=== PATIENT | female | born 1945 | race Caucasian/White ===

== ENCOUNTER 2018-10-07 02:00 | Emergency (ER) | payer MEDICARE, BC ==
[2018-10-07] MEDS ORDERED: Bupivacaine 0.5% W/EPI SDV* 10 ML VIAL INJ ONE (02:06)
[2018-10-07] MEDS ORDERED: Lidocaine 2% EPI 1:200000 MPF* 10 ML VIAL INJ ONE (02:06)
--- NOTE | 2018-10-07 02:07 | ED ---
Laceration/Wound HPI - HPI Summary HPI Summary: This patient is a 73 year old F brought in by ambulance to [facility] with a chief complaint of laceration to lower left leg that occurred [employer]. Symptoms aggravated by movement. Symptoms alleviated by nothing. Patient reports LLE pain. - History of Current Complaint Stated Complaint: "L LEG LAC" PER PT Time Seen by Provider: 10/07/18 02:02 Hx Obtained From: Patient, EMS Mechanism of Injury: Other - Unknown Onset/Duration: Sudden Onset, Lasting Hours, Still Present Aggravating: Movement Alleviating: Nothing Timing: Constant Associated Signs & Symptoms: Pain - Allergy/Home Medications Allergies/Adverse Reactions: Allergies Allergy/AdvReac Type Severity Reaction Status Date / Time tetracycline Allergy Rash Verified 10/07/18 03:22 PMH/Surg Hx/FS Hx/Imm Hx Previously Healthy: No Endocrine/Hematology History: Denies: Hx Diabetes Cardiovascular History: Denies: Hx Hypertension, Hx Pacemaker/ICD History: Denies: Hx Dialysis, Hx Renal Disease Musculoskeletal History: Denies: Hx Rheumatoid Arthritis, Hx Osteoporosis Sensory History: Denies: Hx Hearing Aid Psychiatric History: Denies: Hx Panic Disorder - Cancer History Cancer Type, 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 CYST ON COCYX TAKEN OFF 1961. CATARACTS BILATERAL EYES - Family History Known Family History: Positive: Unknown - Pt has dimentia - Social History Occupation: Retired Lives: With Family Alcohol Use: Daily Alcohol Amount: a glass of wine with dinner Hx Substance Use: No Substance Use Type: Reports: None Hx Tobacco Use: No Smoking Status (MU): Never Smoked Tobacco Review of Systems Positive: Other - Positive LLE pain Positive: Other - Positive left lower leg laceration All Other Systems Reviewed And Are Negative: Yes Physical Exam - Summary Physical Exam Summary: Appearance: Well-appearing, Well-nourished, lying in bed comfortable Skin: Warm, dry, no obvious rash, 3 cm laceration to the left lateral lower leg Eyes: sclera anicteric, no conjunctival pallor ENT: mucous membranes moist Neck: deferred Respiratory: No signs of respiratory distress Cardiovascular: Appears well perfused, pulses are nml Abdomen: deferred Musculoskeletal: Moving all 4 extremities without obvious discomfort Neurological: Awake and alert, mentation is normal, speech is fluent and appropriate Psychiatric: affect is normal, does not appear anxious or depressed Triage Information Reviewed: Yes Vital Signs Reviewed: Yes Procedures - Laceration/Wound Repair 1 Location: lower extremity Description: Linear Anesthesia: 2.0%, Lido, Epi Length, Depth and Shape: 3 cm Laceration/Wound Explored: clean Closure: Single Layer Suture Type: Nylon - 4.0 Number of Sutures: 4 Layer Closure?: Yes Sterile Dressing Applied?: Yes Laceration Repair Course/Dx - Course Course Of Treatment: This patient is a 73 year old F brought in by ambulance to [facility] with a chief complaint of laceration to lower left leg that occurred [employer]. Physical Exam Findings: 3 cm laceration to the left lateral lower leg. In the ED course the patient was given Bupivacaine and lidocaine 2% with EPI. Patient will be discharged with follow up from PCP. The patient is agreeable with this plan. - Clinical Impression Provider Diagnoses: Laceration of left leg Discharge - Sign-Out/Discharge Documenting (check all that apply): Patient Departure - Discharge home Patient Received Moderate/Deep Sedation with Procedure: No - Discharge Plan Condition: Improved Disposition: HOME Patient Education Materials: Care For Your Stitches (ED), Laceration (ED) Referrals: Yady Munoz MD [Primary Care Provider] - Additional Instructions: Stitches need to be removed in 10 days. - Billing Disposition and Condition Condition: IMPROVED Disposition: Home - Attestation Statements Document Initiated by Scribe: Yes Documenting Scribe: Leonila Thapa Provider For Whom Zoey is Documenting (Include Credential): Dr. Shahid Ling MD Scribe Attestation: ILeonila, scribed for Dr. Shahid Ling MD on 10/07/18 at 0355. Scribe Documentation Reviewed: Yes Provider Attestation: The documentation as recorded by the Leonila rivas accurately reflects the service I personally performed and the decisions made by me, Dr. Shahid Ling MD Status of Scribe Document: Viewed
[2018-10-07] MEDS ORDERED: Lidocaine 2% EPI 1:200000 MPF*10-20 ML VIAL ONE (02:08)
[2018-10-07] MEDS ORDERED: Bupivacaine 0.5% W/EPI SDV* 30 ML VIAL ONE (02:08)
[2018-10-07 02:34] VITALS: BP 0/0
== END 2018-10-07 04:39 | disposition home or self-care (01) ==
LOC: ED 02:00
DX: S81.812A Laceration without foreign body, left lower leg, initial encounter (principal); X58.XXXA Exposure to other specified factors, initial encounter; Y92.9 Unspecified place or not applicable; Z85.820 Personal history of malignant melanoma of skin
CPT/HCPCS: 12002; 96374; 99282

== ENCOUNTER 2018-10-14 18:42 | Emergency (ER) | payer MEDICARE, BC ==
--- OUTSIDE RECORDS SUMMARY | 2018-10-14 19:15 | XMS REPORT | Continuity of Care Document ---
:1945 External Reference #:[id number] Author Name Jocelynn Mccormick M.D. Address [address] [place] [address] Care Team Providers Name Role Phone Juan Neil M.D., R.D. Care Team Information Forensic Technician Unavailable Payers Date Identification Numbers Payment Provider Subscriber Effective: 2016 Policy Number: [id number] [facility] Marg[facility]ite [facility] PayID: [id number] [address] [place] [address] Effective: 2004 Policy Number: [facility](Josefina Gomez [id number] Group Name: Noé [address] PayID: [id number] [place] [address] Advance Directives Type Date Description Status Comment Other Directive 10/07/2014 Health Care Proxy Current and Verified Other Directive 10/07/2014 Living Will Current and Verified Problems Active Problems Provider Date Mixed hyperlipidemia Lab and Office Services Onset: 05/23/2011 Osteoarthritis Juan Neil M.D., R.D. Onset: 05/23/2011 Gastroesophageal reflux disease Juan Neil M.D., R.D. Onset: 05/23/2011 Family History Date Family Member(s) Observation Comments : (age Father due to 81 Years) Fractured Hip Surgery Father Hypertension Mother due to () Alzheimer's Disease Mother Migraines : (age Mother due to 80 Years) Osteoporosis, Fractured Hip Children 2 First Brother Age 4 ? METABOLIC/ NEUROLOGIC DISORDER- ILLNESS LIKE KELLY-SACHS BUT TOLD NOT GENETIC Maternal Grandmother Migraines Maternal Grandmother Osteoporosis HIP FX Paternal Aunts Cancer, Breast POSTMENOPAUSAL Maternal Aunts Osteoporosis Maternal Aunts Lupus Erythematosis Maternal Aunts Cancer, Breast POSTMENOPAUSAL Social History Type Date Description Comments Sex Unknown Marital Status Lives With Spouse Diet Healthy, Well Balanced Diet . Stopped eating meat However, hard to this summer. Object to find good meals. Eat killing animals. fish and eggs. Wonders re Fe and B12. Were eating free-range meat before that. Not much sweets. No DM hx in family. Eating more cheese. Green tea. As of 04/2014, eating chicken and fish. Yogurt. Similar diet 2017. 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 Tobacco Use Start: Unknown Never Smoked Cigarettes Tobacco Use Start: Unknown Reviewed 08/15/05 and 03/19. ETOH Use Currently consumes alcohol ETOH Use Currently consumes 1 glasses of wine daily Tobacco Use Start: Unknown Patient has never smoked Smoking Status Reviewed: 05/13/18 Patient has never smoked Exercise Walks 5 times a week Type/Frequency Exercise --3-4 miles a day even Still walks in 2016 Type/Frequency in winter. Allergies, Adverse Reactions, Alerts Active Allergies Reaction Severity Comments Date Tetracyclin Hives After Treated For Pneumonia 08/15/2005 Medications Active Medications SIG Qnty Indications Ordering Date Provider Melatonin 1 by mouth every 90tabs Juan Neil, 07/01/2018 3mg Tablets night at bedtime as Giuseppe Montiel needed sleep Risperdal 1 by mouth twice a 30tabs Juan Neil, 06/17/2018 0.5mg day Tiana RTanvi Tablets Alprazolam Discontinue 1tabs Juan Neil, 06/08/2018 0.5mg Medication Tiana R.DIban Tablets Benadryl Allergy Discontinue 1caps Juan Neil, 05/30/2018 25mg Medication Tiana RTanvi Capsules Calcium + D3 take one tablet by 90tabs Juan Neil, 05/30/2018 mouth qd Tiana RTanvi [id number] Tablets Aspir-81 take one tablet by 90tabs Juan Neil, 03/27/2012 81mg Tablets mouth daily Giuseppe Montiel DR Mvi 1 po qd 90caps Juan Neil, 05/24/2011 Capsules Giuseppe Montiel Combigan bid With DR. Gerardo Brunson 02/03/2008 0.2/0.5% for left eye Blegen, Tiana Solution History Medications Alprazolam take one by mouth 30tabs Juan Neil, 11/09/2017 - 0.25mg once daily as Tiana R.DIban 06/08/2018 Tablets needed for anxiety Melatonin Juan Neil, 05/26/2015 - Capsules Tiana R.DIban 05/21/2017 Calcium + D3 take one tablet Juan Neil, 04/23/2014 - Tablets by mouth bid Tiana R.DIban 05/30/2018 Nystatin apply to affected 30gm Juan Neil, 07/16/2013 - [id number] area bid - tid Tiana, R.DIban 04/23/2014 Cream prn Satnam Mag Zinc 1 po qd Juan Neil, 04/21/2013 - Tablets Tiana R.DIban 04/23/2014 Benadryl take one tablet Juan Neil, 04/21/2013 - 25mg Capsules by mouth at Tiana R.DIban 05/30/2018 bedtime as needed for allergies Amoxicillin 1 po bid for 20tabs 461.8 Shawnti RIban 04/08/2013 - 875mg sinus infection Storm, [employer] 04/18/2013 Tablets Prednisone take 3 tablets 30tabs 389.9 Juan Neil, 11/20/2012 - 20mg Tablets daily Tiana R.DIban 04/08/2013 Valtrex 1 po tid for 10 30tabs 389.9 Juan Neil, 11/20/2012 - 1gm Tablets days Tiana, R.D. 04/21/2013 Cephalexin 1 tablet po bid x 20tabs 782.9 Rex Elliott M.D. 10/09/2012 - 250mg 10 days 12/28/2012 Tablets Xanax 1-2 po tid prn. 12tabs Juan Neil, 10/08/2012 - 0.5mg Tablets Take 1/2 hour M.DIban, R.D. 04/21/2013 before flying. Calcium 600 + D 1 po qd Juan Neil, 05/12/2012 - M.DIban, R.D. 04/21/2013 [id number] Tablets Vitamin B-12 1 po qd Juan Neil, 05/12/2012 - 500mcg M.DIban, R.D. 04/21/2013 Tablets Sub Vitamin D-3 1pill qd Juan Neil, 05/12/2012 - 400Unit M.DIban, R.D. 04/21/2013 Tablets Metamucil Juan Neil, 03/27/2012 - Powder M.DIban, R.D. 04/23/2014 Vitamin B-12 1 po qd Juan Neil, 03/27/2012 - 1000mcg M.DIban, R.D. 05/12/2012 Tablets Sub Fluticasone instill 2 sprays 1units 995.3 Juan Neil, 01/11/2012 - Propionate into each nostril Parvin.Jennifer, R.D. 03/27/2012 50mcg/Act once daily Suspension Potassium Gluconate 595 mg qd Juan Neil, 05/24/2011 - M.DIban, R.D. 04/23/2013 Tablets Vitamin D 1 po qd Juan Neil, 05/24/2011 - 1000Unit M.DIban, R.D. 04/21/2013 Capsules Simvastatin Take One Tablet 90tabs 272.2 Juan Neil, 10/06/2009 - 10mg By Mouth AT M.D., R.D. 04/23/2014 Tablets Bedtime [place] Nail Lacquer use as directed 1units Jocelynn Brunson 02/03/2008 - 8% qd to affected Tiana Mccormick 05/24/2011 Solution toenails- remove with alcohol wipe qweek Omeprazole One Pill By Mouth 30caps Regla Nichole 02/05/2007 - 20mg Daily Before Storm, [employer] 09/10/2007 Capsules First Meal Of The Day Cod Liver Oil Jocelynn Brunson 01/31/2007 - Capsules BleTiana mayorga 05/24/2011 Keflex one po bid for 10 20tabs Lizette A. 08/25/2006 - 500mg Tablets days Marcelino, 03/31/2009 [facility] Augmentin One PO bid For 20tabs 461.9 Rex Elliott M.D. 10/11/2005 - 875mg;125 mg 10 Days 10/31/2005 Tablets Amoxicillin 2 PO bid X 10 40caps Jocelynn Brunson 08/24/2005 - 500mg Days Anny MIbanDIban 10/31/2005 Capsules Fish Oil Jocelynn Brunson 08/15/2005 - Caps Candciegen MIbanDIban 01/31/2007 Aspirin 1 po qd Jocelynn Brunson 08/15/2005 - 325mg Tablets Tiana Mccormick 03/31/2009 Glucosamine And 1350 mg bid Juan Neil, 08/15/2005 - Chondroitin M.Jennifer, R.D. 04/21/2013 Tablets Gingko Biloba Jocelynn Brunson 08/15/2005 - Caplets Tiana Mccormick 05/24/2011 Potassium Chloride Jocelynn Brunson 08/15/2005 - Blegen, M.DIban 05/24/2011 Capsules Premarin Vaginal use up to twice 42.5G Jocelynn Brunson 08/15/2005 - weekly as Tiana Mccormick 03/31/2009 0.625mg/GM Cream directed Calcium Citrate 1-2 tabs a day Juan Neil, 08/09/2004 - 500 M.D., R.D. 05/12/2012 Triamcinolone 0.1% Apply bid to 30units Carmen Israel, 08/05/2003 - Cream affected area M.DIban 05/24/2011 0.1% Augmentin one bid x3 days 6tabs Joseph Morfin, 05/22/2003 - 500mg Tablets M.D. 08/09/2004 Physical Therapy PT For Tendonitis 6units Carmen Israel, 08/06/2002 - R Shoulder M.D. 05/24/2011 Fosamax one q week on 4tabs Carmen Israel, 08/06/2002 - 70mg Tablets empty stomach, do M.D. 10/11/2005 not lie down after taking Tylenol With Codeine one to two tabs 60tabs oJcelynn Michael/16/2002 - #3 q4-6h prn pain Tiana Mccormick 05/24/2011 Tablets Medications Administered in Office Medication SIG Qnty Indications Ordering Provider Date TB,Intradermal (PPD, [place]) Lab and Office Services 05/27/2018 Injection Immunizations CPT Code Status Date Vaccine Lot # [id number] Given 05/13/2018 Influenza Vaccine High Dose PF [id number] 85343 Given 02/08/2016 Influenza Vaccine High Dose PF [id number] 78580 Given 03/10/2015 Influenza Vaccine High Dose PF [id number] 85786 Given 07/09/2014 Prevnar-13 Pneumococcal Conjugate Vaccine [id number] 79939 Given 03/19/2014 Influenza Vaccine High Dose PF [id number] 84181 Given 03/20/2013 Influenza Vaccine High Dose PF [id number] 27183 Given 03/20/2012 Influenza Vaccine High Dose PF [id number] 24692 Given 04/12/2011 Influenza Vaccine-Preservative Free 3 Yrs And [id number] Above 89105 Given 04/06/2010 Influenza Vaccine-Preservative Free 3 Yrs And [id number] Above 45321 Given 05/25/2009 H1N1 Influenza Vaccine [id number] 61866 Given 05/25/2009 H1N1 Immunization Administration, Including Counseling 37547 Given 03/31/2009 Pneumovax 23 (PPSV23) 65+ years or high risk 2 to 1315y 64 year old 93236 Given 03/31/2009 Influenza Vaccine-Preservative Free 3 Yrs And [id number] Above 31147 Given 05/26/2008 Zoster Vaccine [id number] 54455 Given 03/11/2008 Influenza Virus Vaccine, 3 Yrs And Above [id number] 10595 Given 03/29/2007 Influenza Virus Vaccine, 3 Yrs And Above [id number] 97717 Given 08/15/2005 Tdap (Adacel) [id number] 92899 Given 03/28/2005 Influenza Virus Vaccine, 3 Yrs And Above 68327 Given 04/01/2003 Influenza Virus Vaccine, 3 Yrs And Above 74043 Given 04/01/2003 Influenza Virus Vaccine, 3 Yrs And Above 36611 Given 2002 Influenza Virus Vaccine, 3 Yrs And Above 12892 Given 04/15/2001 Influenza Virus Vaccine, 3 Yrs And Above 34377 Given 04/01/1999 Influenza Virus Vaccine, 3 Yrs And Above 12196 Given 04/08/1998 Influenza Virus Vaccine 68105 Given 03/11/1997 Influenza Virus Vaccine 60016 Given 08/06/1996 Tetanus 12588 Given 03/21/1996 Influenza Virus Vaccine 07361 Given 03/19/1995 Influenza Virus Vaccine 22587 Given 03/09/1994 Influenza Virus Vaccine 93283 Given 03/23/1993 Influenza Virus Vaccine Vital Signs Date Vital Result Comment 05/13/2018 9:23am Weight 98.00 lb Weight 44.453 kg BP Systolic 140 mmHg BP Diastolic 74 mmHg Heart Rate 78 /min Body Temperature 97.6 F Respiratory Rate 16 /min Height 61.5 inches 5'1.50" BMI (Body Mass Index) 18.2 kg/m2 O2 % BldC Oximetry 98 % 11/09/2017 12:34pm Weight 98.00 lb Weight 44.453 kg BP Systolic 147 mmHg BP Diastolic 75 mmHg Heart Rate 88 /min Body Temperature 99.0 F O2 % BldC Oximetry 97 % 05/21/2017 11:24am Weight 104.00 lb Weight 47.174 kg BP Systolic Lying Down 150 mmHg BP Diastolic Lying Down 70 mmHg BP Systolic Standing 150 mmHg BP Diastolic Standing 70 mmHg Heart Rate 68 /min Body Temperature 97.5 F Respiratory Rate 14 /min Height 62 inches 5'2" BMI (Body Mass Index) 19.0 kg/m2 O2 % BldC Oximetry 97 % 04/27/2017 12:20pm Weight 105.00 lb Weight 47.628 kg BP Systolic 140 mmHg BP Diastolic 70 mmHg Heart Rate 80 /min Body Temperature 97.8 F Respiratory Rate 14 /min 01/08/2017 2:34pm Weight 105.00 lb Weight 47.628 kg BP Systolic 138 mmHg BP Diastolic 68 mmHg Heart Rate 72 /min Body Temperature 98.2 F Respiratory Rate 17 /min O2 % BldC Oximetry 98 % 08/30/2016 11:22am Weight 111.00 lb Weight 50.350 kg BP Systolic 140 mmHg BP Diastolic 70 mmHg Heart Rate 72 /min 05/19/2016 10:45am Weight 108.00 lb Weight 48.989 kg BP Systolic 122 mmHg BP Diastolic 68 mmHg Heart Rate 67 /min Body Temperature 94.0 F Respiratory Rate 16 /min O2 % BldC Oximetry 99 % 02/08/2016 11:51am Weight 110.00 lb Weight 49.896 kg BP Systolic 128 mmHg BP Diastolic 64 mmHg Heart Rate 60 /min Body Temperature 97.3 F Respiratory Rate 16 /min 12/08/2015 11:39am Weight 110.00 lb Weight 49.896 kg BP Systolic 128 mmHg BP Diastolic 68 mmHg Heart Rate 62 /min Body Temperature 97.5 F 12/01/2015 10:05am Weight 109.00 lb Weight 49.442 kg BP Systolic 152 mmHg BP Diastolic 78 mmHg Heart Rate 90 /min Body Temperature 98.5 F O2 % BldC Oximetry 99 % 05/26/2015 2:19pm Weight 112.00 lb Weight 50.803 kg BP Systolic 120 mmHg BP Diastolic 80 mmHg Heart Rate 80 /min Height 62 inches 5'2" BMI (Body Mass Index) 20.5 kg/m2 08/24/2014 1:33pm Weight 109.00 lb Weight 49.442 kg BP Systolic 100 mmHg BP Diastolic 60 mmHg Heart Rate 69 /min Body Temperature 97.1 F O2 % BldC Oximetry 96 % 04/23/2014 11:05am Weight 110.00 lb Weight 49.896 kg BP Systolic 128 mmHg BP Diastolic 66 mmHg Heart Rate 76 /min Height 61.5 inches 5'1.50" BMI (Body Mass Index) 20.4 kg/m2 04/21/2013 9:41am Weight 109.00 lb Weight 49.442 kg BP Systolic 120 mmHg BP Diastolic 70 mmHg Heart Rate 88 /min Height 62.5 inches 5'2.50" BMI (Body Mass Index) 19.6 kg/m2 04/08/2013 9:46am Weight 107.00 lb Weight 48.535 kg BP Systolic 118 mmHg BP Diastolic 64 mmHg Heart Rate 82 /min Body Temperature 96.3 F Height 62.5 inches 5'2.50" BMI (Body Mass Index) 19.3 kg/m2 O2 % BldC Oximetry 99 % 11/20/2012 10:27am Weight 111.00 lb Weight 50.350 kg BP Systolic 104 mmHg BP Diastolic 64 mmHg Heart Rate 76 /min Body Temperature 97.3 F 10/29/2012 10:51am Weight 114.00 lb Weight 51.710 kg BP Systolic 112 mmHg BP Diastolic 70 mmHg Heart Rate 76 /min Body Temperature 97.9 F O2 % BldC Oximetry 99 % 10/21/2012 8:44am Weight 115.00 lb Weight 52.164 kg BP Systolic 124 mmHg BP Diastolic 64 mmHg Heart Rate 76 /min Body Temperature 96.2 F 10/14/2012 11:58am Weight 116.00 lb Weight 52.618 kg BP Systolic 120 mmHg BP Diastolic 62 mmHg Heart Rate 68 /min 10/09/2012 2:31pm Weight 113.00 lb Weight 51.257 kg BP Systolic 104 mmHg BP Diastolic 72 mmHg Heart Rate 84 /min Body Temperature 97.4 F 04/25/2012 11:00am Weight 114.00 lb Weight 51.710 kg BP Systolic 116 mmHg BP Diastolic 68 mmHg Heart Rate 86 /min 03/27/2012 8:33am Weight 113.00 lb Weight 51.257 kg BP Systolic 122 mmHg BP Diastolic 64 mmHg Heart Rate 68 /min Height 62 inches 5'2" BMI (Body Mass Index) 20.7 kg/m2 01/11/2012 10:32am Weight 112.00 lb Weight 50.803 kg BP Systolic 114 mmHg BP Diastolic 66 mmHg Heart Rate 66 /min Body Temperature 97.7 F 05/24/2011 8:45am Weight 116.00 lb Weight 52.618 kg BP Systolic 110 mmHg BP Diastolic 68 mmHg Heart Rate 79 /min Height 62 inches 5'2" BMI (Body Mass Index) 21.2 kg/m2 Last Menstrual Period 0 O2 % BldC Oximetry 98 % 04/20/2010 8:38am Weight 115.00 lb Weight 52.164 kg BP Systolic 110 mmHg BP Diastolic 70 mmHg Heart Rate 76 /min Height 62.5 inches 5'2.50" BMI (Body Mass Index) 20.7 kg/m2 10/20/2009 9:02am Weight 116.00 lb Weight 52.618 kg BP Systolic 150 mmHg BP Diastolic 74 mmHg Heart Rate 68 /min Body Temperature 97.0 F 10/06/2009 9:51am Weight 116.00 lb Weight 52.618 kg BP Systolic 128 mmHg BP Diastolic 76 mmHg Heart Rate 72 /min 06/08/2009 2:37pm Weight 120.00 lb Weight 54.432 kg BP Systolic 116 mmHg BP Diastolic 70 mmHg Heart Rate 76 /min 03/31/2009 8:21am Weight 117.00 lb Weight 53.071 kg BP Systolic 100 mmHg BP Diastolic 64 mmHg Heart Rate 76 /min Height 63 inches 5'3" BMI (Body Mass Index) 20.7 kg/m2 03/11/2008 12:43pm Weight 118.00 lb Weight 53.525 kg BP Systolic 120 mmHg BP Diastolic 60 mmHg Heart Rate 80 /min Body Temperature 98.4 F Height 62.50 inches 5'2.50" BMI (Body Mass Index) 21.2 kg/m2 02/03/2008 9:05am Weight 116.00 lb Weight 52.618 kg BP Systolic 104 mmHg BP Diastolic 68 mmHg Heart Rate 76 /min Height 62.50 inches 5'2.50" BMI (Body Mass Index) 20.9 kg/m2 Last Menstrual Period 0 02/03/2008 9:04am Height 62 inches 5'2" 09/10/2007 3:17pm Weight 119.00 lb Weight 53.978 kg BP Systolic 124 mmHg BP Diastolic 60 mmHg Heart Rate 70 /min Height 62 inches 5'2" BMI (Body Mass Index) 21.8 kg/m2 02/05/2007 11:08am Weight 118.00 lb Weight 53.525 kg BP Systolic 120 mmHg BP Diastolic 58 mmHg Heart Rate 72 /min Height 62 inches 5'2" BMI (Body Mass Index) 21.6 kg/m2 01/31/2007 10:35am Weight 118.00 lb Weight 53.525 kg BP Systolic 110 mmHg BP Diastolic 70 mmHg Heart Rate 68 /min Body Temperature 98.8 F Height 62 inches 5'2" BMI (Body Mass Index) 21.6 kg/m2 O2 % BldC Oximetry 98 % 01/28/2007 1:48pm Weight 118.00 lb Weight 53.525 kg BP Systolic 120 mmHg BP Diastolic 70 mmHg Heart Rate 80 /min Body Temperature 98.6 F Height 62 inches 5'2" BMI (Body Mass Index) 21.6 kg/m2 08/25/2006 9:57am Weight 119.00 lb Weight 53.978 kg BP Systolic 130 mmHg BP Diastolic 4 mmHg Body Temperature 96.1 F Height 62 inches 5'2" BMI (Body Mass Index) 21.8 kg/m2 10/31/2005 11:34am Weight 126.31 lb Weight 57.295 kg BP Systolic 124 mmHg BP Diastolic 70 mmHg Body Temperature 96.7 F Height 62 inches 5'2" BMI (Body Mass Index) 23.1 kg/m2 10/11/2005 9:58am Weight 115.00 lb Weight 52.164 kg BP Systolic 130 mmHg BP Diastolic 80 mmHg Body Temperature 97.0 F Height 62 inches 5'2" BMI (Body Mass Index) 21.0 kg/m2 08/24/2005 11:32am Weight 118.00 lb Weight 53.525 kg BP Systolic 112 mmHg BP Diastolic 62 mmHg Body Temperature 98.5 F Height 62 inches 5'2" BMI (Body Mass Index) 21.6 kg/m2 08/15/2005 12:12pm Weight 117.00 lb Weight 53.071 kg BP Systolic 118 mmHg BP Diastolic 64 mmHg Heart Rate 72 /min Height 62 inches 5'2" BMI (Body Mass Index) 21.4 kg/m2 04/05/2005 12:05pm Weight 116.00 lb Weight 52.618 kg BP Systolic 122 mmHg BP Diastolic 70 mmHg Body Temperature 96.9 F Height 62 inches 5'2" BMI (Body Mass Index) 21.2 kg/m2 08/09/2004 1:09pm Weight 118.00 lb Weight 53.525 kg BP Systolic 110 mmHg BP Diastolic 72 mmHg Heart Rate 92 /min Height 62 inches 5'2" BMI (Body Mass Index) 21.6 kg/m2 06/13/2004 11:20am Weight 129.00 lb Weight 58.514 kg BP Systolic 129 mmHg BP Diastolic 63 mmHg Heart Rate 85 /min Height 62.5 inches 5'2.50" BMI (Body Mass Index) 23.2 kg/m2 08/05/2003 8:39am Weight 121.00 lb Weight 54.886 kg BP Systolic 120 mmHg BP Diastolic 80 mmHg Heart Rate 84 /min Respiratory Rate 18 /min Height 62.5 inches BMI (Body Mass Index) 21.8 kg/m2 06/16/2003 3:41pm BP Systolic 120 mmHg BP Diastolic 62 mmHg Body Temperature 97.5 F 05/22/2003 12:59pm BP Systolic 138 mmHg BP Diastolic 80 mmHg Body Temperature 97.6 F 04/08/2003 11:52am Weight 122.00 lb Weight 55.339 kg BP Systolic 110 mmHg BP Diastolic 70 mmHg 01/29/2003 8:50am Weight 125.50 lb Weight 56.927 kg BP Systolic 106 mmHg BP Diastolic 64 mmHg Body Temperature 98.0 F 08/06/2002 8:15am Weight 121.00 lb Weight 54.900 kg BP Systolic 112 mmHg BP Diastolic 72 mmHg Heart Rate 88 /min Respiratory Rate 18 /min Height 62.5 inches BMI (Body Mass Index) 21.8 kg/m2 09/20/2001 2:27pm Weight 122.00 lb BP Systolic 140 mmHg BP Diastolic 80 mmHg Heart Rate 80 /min Respiratory Rate 18 /min Height 62.6 inches BMI (Body Mass Index) 22.3 kg/m2 Results Test Date Facility Test Result H/L Range Note Comp Metabolic 01/08/2017 [facility] Sodium 140 mmol/ L N 133-145 Panel [phone] Potassium 5.1 mmol/L High 3.5-5.0 Chloride 103 mmol/L N 101-111 Co2 Carbon Dioxide 27 mmol/L N 22-32 Anion Gap 10 mmol/L N 2-11 Glucose 95 mg/dL N 70-100 Blood Urea Nitrogen 22 mg/dL N 6-24 Creatinine 0.78 mg/dL N 0.51-0.95 BUN/Creatinine Ratio 28.2 High 8-20 Calcium 9.9 mg/dL N 8.6-10.3 Total Protein 6.6 g/dL N 6.4-8.9 Albumin 4.3 g/dL N 3.2-5.2 Globulin 2.3 g/dL N 2-4 Albumin/Globulin Ratio 1.9 N 1-3 Total Bilirubin 0.50 mg/dL N 0.2-1.0 Alkaline Phosphatase 81 U/L N 34-104 Alt 15 U/L N 7-52 Ast 16 U/L N 13-39 Egfr Non- 72.6 N >60 Egfr 93.4 N >60 1 Laboratory test 01/08/2017 [facility] Vitamin B12 334 pg/mL N 180-914 2 finding [phone] TSH (Thyroid Stim Horm) 1.83 mcIU/mL N 0.34-5.60 3 Syphillis Igg W/Reflex RPR Nonreactive N Nonreactive 4 Laboratory test 05/19/2016 [facility] Vitamin B12 303 pg/mL N 180-914 5 finding [phone] TSH (Thyroid Stim Horm) 2.15 mcIU/mL N 0.34-5.60 6 Syphillis Igg W/Reflex RPR Nonreactive N Nonreactive 7 CBC Auto 11/28/2015 [facility] White Blood 11.1 10^3/ uL High 3.5-10.8 Diff [phone] Count Red Blood Count 4.39 10^6/uL N 4.0-5.4 Hemoglobin 14.1 g/dL N 12.0-16.0 Hematocrit 42 % N 35-47 Mean Corpuscular Volume 96 fL N 80-97 Mean Corpuscular Hemoglobin 32 pg High 27-31 Mean Corpuscular HGB Conc 33 g/dL N 31-36 Red Cell Distribution Width 13 % N 10.5-15 Platelet Count 238 10^3/uL N 150-450 Mean Platelet Volume 7 um3 Low 7.4-10.4 Abs Neutrophils 9.2 10^3/uL High 1.5-7.7 Abs Lymphocytes 1.2 10^3/uL N 1.0-4.8 Abs Monocytes 0.6 10^3/uL N 0-0.8 Abs Eosinophils 0.1 10^3/uL N 0-0.6 Abs Basophils 0.1 10^3/uL N 0-0.2 Abs Nucleated RBC 0 10^3/uL N Granulocyte % 82.9 % N 38-83 Lymphocyte % 10.6 % Low 25-47 Monocyte % 5.1 % N 1-9 Eosinophil % 0.8 % N 0-6 Basophil % 0.6 % N 0-2 Nucleated Red Blood Cells % 0 N Laboratory test 11/28/2015 [facility] Lactic Acid 1.5 mmol/L N 0.5-2.0 8 finding [phone] Urinalysis Profile 11/28/2015 [facility] Urine Color Yellow N [phone] Urine Appearance Clear N Urine Specific Yreka 1.013 N 1.010-1.030 Urine pH 5.0 N 5-9 Urine Urobilinogen Negative N Negative Urine Ketones Trace Abnormal Negative Urine Protein Negative N Negative Urine Leukocytes Negative N Negative Urine Blood Negative N Negative * * Abnormal Negative 9 Urine Nitrite Negative N Negative Urine Bilirubin Negative N Negative Urine Glucose Negative N Negative Comp Metabolic Panel 11/28/2015 [facility] Sodium 139 mmol/L N 133-145 [phone] Potassium 3.9 mmol/L N 3.5-5.0 Chloride 105 mmol/L N 101-111 Co2 Carbon Dioxide 25 mmol/L N 22-32 Anion Gap 9 mmol/L N 2-11 Glucose 117 mg/dL High 70-100 Blood Urea Nitrogen 11 mg/dL N 6-24 Creatinine 0.73 mg/dL N 0.51-0.95 BUN/Creatinine Ratio 15.1 N 8-20 Calcium 9.2 mg/dL N 8.6-10.3 Total Protein 7.0 g/dL N 6.4-8.9 Albumin 4.5 g/dL N 3.2-5.2 Globulin 2.5 g/dL N 2-4 Albumin/Globulin Ratio 1.8 N 1-3 Total Bilirubin 0.30 mg/dL N 0.2-1.0 Alkaline Phosphatase 73 U/L N 34-104 Alt 23 U/L N 7-52 Ast 22 U/L N 13-39 Egfr Non- 78.6 N >60 Egfr 101.1 N >60 10 Laboratory test 11/28/2015 [facility] Magnesium 2.1 mg/dL N 1.9-2.7 finding [phone] Troponin I 0.00 ng/mL N <0.03 11 TSH (Thyroid Stimulating Horm) 2.34 ?IU/mL N 0.34-5.60 Comp Metabolic Panel 05/26/2015 [facility] Sodium 139 mmol/L N 133-145 [phone] Potassium 3.9 mmol/L N 3.5-5.0 Chloride 102 mmol/L N 101-111 Co2 Carbon Dioxide 30 mmol/L N 22-32 Anion Gap 7 mmol/L N 2-11 Glucose 76 mg/dL N 70-100 Blood Urea Nitrogen 19 mg/dL N 6-24 Creatinine 0.79 mg/dL N 0.51-0.95 BUN/Creatinine Ratio 24.1 High 8-20 Calcium 9.6 mg/dL N 8.6-10.3 Total Protein 6.5 g/dL N 6.4-8.9 Albumin 4.3 g/dL N 3.2-5.2 Globulin 2.2 g/dL N 2-4 Albumin/Globulin Ratio 2.0 N 1-3 Total Bilirubin 0.30 mg/dL N 0.2-1.0 Alkaline Phosphatase 64 U/L N 34-104 Alt 14 U/L N 7-52 Ast 17 U/L N 13-39 Egfr Non- 71.7 N >60 Egfr 92.3 N >60 12 Urine DIP 05/26/2015 In House Lab Leukocytes neg Neg [phone] Urine Nitrites neg Neg Urobilinogen norm Norm Total Protein, Urine neg Neg Urine pH 5 5-6 Urine Blood neg Neg Specific Yreka 1.020 1.01-1.02 Urine Ketones neg Neg Urine Bilirubin neg Neg Urine Glucose norm Norm Lipid Profile 05/26/2015 [facility] Triglycerides 156 mg/dL N 13 (Trig/Chol/HDL) [phone] Cholesterol 214 mg/dL N 14 HDL Cholesterol 55.5 mg/dL N 15 LDL Cholesterol 127 mg/dL N 16 CBC Auto Diff 04/16/2014 [facility] White Blood 6.6 10^3/uL N 4.8-10.8 [phone] Count Red Blood Count 4.67 10^6/uL N 4.0-5.4 Hemoglobin 15.0 g/dL N 12.0-16.0 Hematocrit 45 % N 35-47 Mean Corpuscular Volume 96 fL N 80-97 Mean Corpuscular Hemoglobin 32 pg High 27-31 Mean Corpuscular HGB Conc 33 g/dL N 31-36 Red Cell Distribution Width 13 % N 10.5-15 Platelet Count 255 10^3/uL N 150-450 Mean Platelet Volume 8 um3 N 7.4-10.4 Abs Neutrophils 3.9 10^3/uL N 1.5-7.7 Abs Lymphocytes 1.8 10^3/uL N 1.0-4.8 Abs Monocytes 0.6 10^3/uL N 0-0.8 Abs Eosinophils 0.3 10^3/uL N 0-0.6 Abs Basophils 0.1 10^3/uL N 0-0.2 Abs Nucleated RBC 0 10^3/uL N Granulocyte % 58.7 % N 38-83 Lymphocyte % 27.2 % N 25-47 Monocyte % 8.7 % N 1-9 Eosinophil % 4.6 % N 0-6 Basophil % 0.8 % N 0-2 Nucleated Red Blood Cells % 0 N Lipid Profile 04/16/2014 [facility] Triglycerides 92 mg/dL N 17 (Trig/Chol/HDL) [phone] Cholesterol 263 mg/dL N 18 HDL Cholesterol 60.9 mg/dL N 19 LDL Cholesterol 184 mg/dL N 20 Comp Metabolic Panel 04/16/2014 [facility] Sodium 140 mmol/L N 133-145 [phone] Potassium 4.6 mmol/L N 3.5-5.0 21 Chloride 104 mmol/L N 101-111 Co2 Carbon Dioxide 32 mmol/L N 22-32 Anion Gap 4 mmol/L N 2-11 Glucose 88 mg/dL N 70-100 Blood Urea Nitrogen 14 mg/dL N 6-24 Creatinine 0.79 mg/dL N 0.51-0.95 BUN/Creatinine Ratio 17.7 N 8-20 Calcium 9.6 mg/dL N 8.6-10.3 Total Protein 6.6 g/dL N 6.4-8.9 Albumin 4.3 g/dL N 3.2-5.2 Globulin 2.3 g/dL N 2-4 Albumin/Globulin Ratio 1.9 N 1-3 Total Bilirubin 0.40 mg/dL N 0.2-1.0 Alkaline Phosphatase 79 U/L N 34-104 Alt 20 U/L N 7-52 Ast 22 U/L N 13-39 Egfr Non- 71.9 N >60 Egfr 92.5 N >60 22 Comp Metabolic Panel 04/21/2013 [facility] Sodium 137 mmol/L 133-145 [phone] Potassium 4.1 mmol/L 3.5-5.0 Chloride 100 mmol/L Low 101-111 Co2 Carbon Dioxide 31.0 mmol/L 22-32 Anion Gap 6.0 mmol/L 2-11 Glucose 101 mg/dL High 70-100 Blood Urea Nitrogen 11 mg/dL 6-24 Creatinine 0.70 mg/dL 0.50-1.40 BUN/Creatinine Ratio 15.7 8-20 Calcium 9.3 mg/dL 8.1-9.9 Total Protein 6.2 g/dL 6.2-8.1 Albumin 4.4 g/dL 3.2-5.2 Globulin 1.8 g/dL Low 2-4 Albumin/Globulin Ratio 2.4 1-3 Total Bilirubin 0.7 mg/dL 0.4-1.5 Alkaline Phosphatase 74 U/L 30-110 Alt 27 U/L 14-54 Ast 28 U/L 12-42 Egfr Non- 83.0 >60 Egfr 106.7 >60 23 Laboratory test 04/21/2013 [facility] Creatine Kinase 54 U/L 0-200 24 finding [phone] Lipid Profile 04/21/2013 [facility] Triglycerides 48 mg/dL 40-200 (Trig/Chol/HDL) [phone] Cholesterol 203 mg/dL High Less than 200 HDL Cholesterol 63 mg/dL High 40-60 25 Cholesterol/HDL Ratio 3.2 Average 1-4.44 LDL Cholesterol 130.4 High Less Than 100 26 CBC With 04/21/2013 [facility] White Blood 8.5 10^3/ uL 4.8-10.8 Manual Diff [phone] Count Red Blood Count 4.47 10^6/uL 4.0-5.4 Hemoglobin 13.7 g/dL 12.0-16.0 Hematocrit 43 % 35-47 Mean Corpuscular Volume 97 fL 80-97 Mean Corpuscular Hemoglobin 31 pg 27-31 Mean Corpuscular HGB Conc 32 g/dL 31-36 Red Cell Distribution Width 13 % 10.5-15 Platelet Count 245 10^3/uL 150-450 Mean Platelet Volume 8 um3 7.4-10.4 Abs Neutrophils 5.7 10^3/uL 1.5-7.7 Abs Lymphocytes 1.9 10^3/uL 1.0-4.8 Abs Monocytes 0.6 10^3/uL 0-0.8 Abs Eosinophils 0.2 10^3/uL 0-0.6 Abs Basophils 0 10^3/uL 0-0.2 Abs Nucleated RBC 0.01 10^3/uL Neutrophil % 64 % 38-83 Lymphocytes % 26 % 25-47 Monocytes % 6 % 0-13 Eosinophils % 3 % 0-6 Basophil % 1 % 0-2 RBC Morphology Normal Normal Laboratory test 04/21/2013 [facility] Vitamin B12 656 pg/mL 180-914 27 finding [phone] Urine DIP 04/21/2013 [facility] Leukocytes neg Neg (607)- - Urine Nitrites negd Neg Urine pH 8 High 5-6 Total Protein, Urine neg Neg Urine Glucose norm Norm Urine Ketones neg Neg Urobilinogen norm Norm Urine Bilirubin neg Neg Urine Blood neg Neg Specific Yreka 1.015 1.01-1.02 Laboratory test 01/13/2013 [facility] Blood Urea 15 mg/dL 6-24 finding [phone] Nitrogen Creatinine 01/13/2013 [facility] Creatinine 0.70 mg/ dL 0.50-1.40 [phone] Egfr Non- 83.2 >60 Egfr 107.0 >60 28 Vitamin D, 25 04/25/2012 [facility] 25-Hydroxy Vitamin <4.0 ng/mL Hydroxy [phone] D2 25-Hydroxy Vitamin D3 38 ng/mL 25-Hydroxy Vitamin D Total 38 ng/mL 29 Urine DIP 03/27/2012 [facility] Leukocytes NEG Neg (607)- - Urine Nitrites NEG Neg Urine pH 5 5-6 Total Protein, Urine NEG Neg Urine Glucose NORM Norm Urine Ketones NEG Neg Urobilinogen NORM Norm Urine Bilirubin NEG Neg Urine Blood NEG Neg Specific Yre[place] NA Low 1.01-1.02 Comp Metabolic Panel 03/20/2012 [facility] Sodium 140 mmol/L 133-145 [phone] Potassium 4.2 mmol/L 3.5-5.0 Chloride 106 mmol/L 101-111 Co2 Carbon Dioxide 30.0 mmol/L 22-32 Anion Gap 4.0 mmol/L 2-11 Glucose 87 mg/dL 70-100 Blood Urea Nitrogen 11 mg/dL 6-24 Creatinine 0.70 mg/dL 0.50-1.40 BUN/Creatinine Ratio 15.7 8-20 Calcium 9.6 mg/dL 8.1-9.9 Total Protein 6.9 GM/DL 6.2-8.1 Albumin 4.5 GM/DL 3.2-5.2 Globulin 2.4 GM/DL 2-4 Albumin/Globulin Ratio 1.9 1-3 Total Bilirubin 0.8 mg/dL 0.1-1.0 30 Alkaline Phosphatase 88 U/L 30-110 Alt 24 U/L 14-54 Ast 26 U/L 12-42 Egfr Non- 83.5 >60 Egfr 107.3 >60 31 Lipid Profile 03/20/2012 [facility] Triglycerides 62 mg/dL 40-200 (Trig/Chol/HDL) [phone] Cholesterol 193 mg/dL Less than 200 32 HDL Cholesterol 60 mg/dL 40-60 33 Cholesterol/HDL Ratio 3.2 AVERAGE 1-4.44 LDL Cholesterol 120.6 mg/dL High Less Than 100 Laboratory test 03/20/2012 [facility] TSH (Thyroid 2.86 0.34-5.60 34 finding [phone] Stimulating MIU/ML Horm) Laboratory test 03/20/2012 [facility] Creatine Kinase 53 U/L 0-200 35 finding [phone] Laboratory test 05/24/2011 [facility] TSH 2.00 0.34-5.60 finding [phone] MIU/ML Vitamin B12 485 pg/mL 180-914 Urine DIP 05/24/2011 [facility] Leukocytes NEG Neg (607)- - Urine Nitrites NEG Neg Urine pH 5-6 5-6 Total Protein, Urine NEG Neg Urine Glucose NORM Norm Urine Ketones NEG Neg Urobilinogen NORM Norm Urine Bilirubin NEG Neg Urine Blood NEG Neg Specific Yre[place] N/A Low 1.01-1.02 Laboratory 05/24/2011 [facility] Cytology ----- 36 test finding [phone] <SEE NOTE> Lipid Panel 05/17/2011 [facility] Triglyceride 61 mg/ dL 40-2 [phone] Cholesterol 207 mg/dL High Less Than 200 37 High Density Lipoprotein 58 mg/dL 40-60 38 Cholesterol/HDL Ratio 3.57 AVERAGE 1-4.44 Low Density Lipoprotein 137 mg/dL High Less Than 100 39 Comprehensive 05/17/2011 [facility] Sodium 141 mmol/ L 135-145 Metabolic [phone] Potassium 4.5 mmol/L 3.5-5.0 Chloride 104 mmol/L 101-111 Co2 (Carbon Dioxide) 29.0 mmol/L 22-32 Anion Gap 8.0 mmol/L 2-11 40 Glucose 99 mg/dL 70-100 BUN 14 mg/dL 6-24 Creatinine 0.8 mg/dL 0.50-1.40 One Over Creatinine 1.25 BUN/Creatinine Ratio 17.5 8-20 Calcium 9.4 mg/dL 8.1-9.9 Total Protein 7.0 GM/DL 6.2-8.1 Albumin 4.6 GM/DL 3.2-5.2 Globulin 2.4 GM/DL 2-4 Albumin/Globulin Ratio 1.9 1-3 Bilirubin Total 0.7 mg/dL 0.4-1.5 41 Alkaline Phosphatase 71 U/L 30-110 Alt (SGPT) 21 U/L 14-54 Ast (Sgot) 26 U/L 12-42 eGFR Non- 71.5 > 60 eGFR 92.0 > 60 42 CBC No Diff 05/17/2011 [facility] White Blood 5.8 CUMM 4.8-10.8 [phone] Count Red Cell Count 4.40 CUMM 4.2-5.4 Hemoglobin 14.6 g/dL 12.0-16.0 Hematocrit 42 % 35-47 Mean Corpuscular Volume 96 um3 79-97 Mean Corpuscular Hemoglob 33 pg High 27-31 Mean Corpuscular HGB Cone 35 g/dL 32-36 Redcell Distribution WDTH 13 % 10.5-15 Platelet Count 220 CUMM 150-450 Mean Platelet Volume 8.4 um3 7.4-10.4 Laboratory test 05/17/2011 [facility] CPK (Creatine 78 U/L 0-170 finding [phone] Kinase) Laboratory test 05/25/2010 [facility] CPK (Creatine 53 U/L 0-170 finding [phone] Kinase) CBC With 05/25/2010 [facility] White Blood 5.8 CUMM 4.8-10.8 Electronic Diff [phone] Count Red Cell Count 4.28 CUMM 4.2-5.4 Hemoglobin 14.2 g/dL 12.0-16.0 Hematocrit 41 % 35-47 Mean Corpuscular Volume 97 um3 79-97 Mean Corpuscular Hemoglob 33 pg High 27-31 Mean Corpuscular HGB Cone 34 g/dL 32-36 Redcell Distribution WDTH 13 % 10.5-15 Platelet Count 228 CUMM 150-450 Mean Platelet Volume 7.2 um3 Low 7.4-10.4 Gran % 53.9 % 38-83 Lymph % 32.7 % 25-47 Mononuclear % 10.0 % High 1-9 Eosinophil % 2.7 % 0-6 Basophil % 0.7 % 0-2 Abs Lymphs 1.9 1.0-4.8 Abs Mononuclear 0.6 0-0.8 Absolute Neutrophil Count 3.1 1.5-7.7 Abs Eosinophils 0.2 0-0.6 Abs Basophils 0 0-0.2 Comp Metabolic Panel 05/25/2010 [facility] Sodium 138 mmol/L 135-145 [phone] Potassium 4.3 mmol/L 3.5-5.0 Chloride 104 mmol/L 101-111 Co2 (Carbon Dioxide) 30.0 mmol/L 22-32 Anion Gap 4.0 mmol/L 2-11 43 Glucose 90 mg/dL 70-100 44 BUN 13 mg/dL 6-24 Creatinine 0.70 mg/dL 0.50-1.40 One Over Creatinine 1.40 BUN/Creatinine Ratio 18.6 8-20 Calcium 9.5 mg/dL 8.1-9.9 Total Protein 6.3 GM/DL 6.2-8.1 Albumin 4.2 GM/DL 3.2-5.2 Globulin 2.1 GM/DL 2-4 Albumin/Globulin Ratio 2.0 1-3 Bilirubin Total 0.8 mg/dL 0.4-1.5 45 Alkaline Phosphatase 67 U/L 30-110 Alt (SGPT) 29 U/L 14-54 Ast (Sgot) 25 U/L 12-42 eGFR Non- 89.0 > 60 eGFR 107.7 > 60 46 Lipid Profile 05/25/2010 [facility] Triglyceride 61 mg/dL 40-200 (Trig/Chol/HDL) [phone] Cholesterol 206 mg/dL High Less Than 200 47 High Density Lipoprotein 58 mg/dL 40-60 48 Cholesterol/HDL Ratio 3.55 AVERAGE 1-4.44 Low Density Lipoprotein 136 mg/dL High Less Than 100 49 Urine DIP 04/20/2010 [facility] Leukocytes NEG Neg (607)- - Urine Nitrites NEG Neg Urine pH 8 High 5-6 Total Protein, Urine NEG Neg Urine Glucose NORM Norm Urine Ketones NEG Neg Urobilinogen NORM Norm Urine Bilirubin NEG Neg Urine Blood NEG Neg Specific Yre[place] N/A Low 1.01-1.02 Laboratory test 04/20/2010 [facility] Thin Prep SEE NOTE 50 finding [phone] W/HPV(Lsil/JASON/Asc) Lipid Panel 11/17/2009 [facility] Cholesterol, Total 169 <200 [phone] mg/dL Triglycerides 41 mg/dL <150 HDL Cholesterol 63 mg/dL High 40-60 Chol/HDL Cholesterol 2.7 51 LDL Cholesterol, Calc. 98 mg/dL 52 LDL/HDL Cholesterol 1.6 53 Hepatic (Liver) 11/17/2009 [facility] Albumin 4.4 g/dL 3.5-4.7 Panel [phone] Protein, Total 6.7 g/dL 6.4-8.3 Alkaline Phosphatase 72 U/L 10-118 Sgot (Ast) 26 U/L 3-40 SGPT (Alt) 25 U/L 7-50 Bilirubin, Total 0.40 mg/dL 0.30-1.20 Bilirubin, Direct 0.13 mg/dL 0.00-0.40 Bilirubin, Indirect 0.27 mg/dL 0.10-1.10 Vaginal Culture 10/20/2009 [facility] Vaginal Culture Normal vaginal 54 [phone] <SEE NOTE> .Gram Stain Additional NO EPI, NO WBC, <SEE NOTE> 55 Vaginitis Dna 10/20/2009 [facility] Screen Trichomonas NEGATIVE Probe Screen [phone] Vaginalis Dna Screen Gardnerella Vaginalis Dna NEGATIVE Screen Laura Species Dna NEGATIVE Urine DIP 10/20/2009 [facility] Leukocytes NEG Neg (607)- - Urine Nitrites NEG Neg Urine pH 9 High 5-6 Total Protein, Urine NEG Neg Urine Glucose NORM Norm Urine Ketones NEG Neg Urobilinogen NORM Norm Urine Bilirubin NEG Neg Urine Blood NEG Neg Specific Yre[place] N/A Low 1.01-1.02 Statin 09/23/2009 [facility] Sgot (Ast) 34 U/L 3-40 56 [phone] SGPT (Alt) 34 U/L 7-50 Lipid Panel 09/23/2009 [facility] Cholesterol, 245 mg/dL Abnormal <200 [phone] Total Triglycerides 59 mg/dL <150 HDL Cholesterol 62 mg/dL High 40-60 Chol/HDL Cholesterol 4.0 57 LDL Cholesterol, Calc. 171 mg/dL Abnormal 58 LDL/HDL Cholesterol 2.8 59 Laboratory test 09/23/2009 [facility] Glucose, Fasting 97 mg/dL 70-100 finding [phone] Laboratory test 03/31/2009 [facility] Thin Prep SEE NOTE 60 finding [phone] W/HPV(Lsil/JASON/ Asc) Urine DIP 03/31/2009 [facility] Leukocytes neg Neg (607)- - Urine Nitrites neg Neg Urine pH 5 5-6 Total Protein, Urine neg Neg Urine Glucose norm Norm Urine Ketones neg Neg Urobilinogen norm Norm Urine Bilirubin neg Neg Urine Blood neg Neg Specific Yre[place] na Low 1.01-1.02 Hemoccult 03/31/2009 [facility] Stool-Occult Blood #1 neg 03/25 Neg (607)- - Stool-Occult Blood #2 neg 03/26 Neg Stool-Occult Blood #3 neg 03/27 Neg Laboratory test 03/25/2009 [facility] TSH 2.580 0.350- 5.500 finding [phone] (Thyrotropin) uIU/ml Comprehensive 03/25/2009 [facility] Glucose 106 High 70- 100 Metabolic [phone] mg/dL BUN 16 mg/dL 4-18 Creatinine, Serum 0.70 mg/dL 0.50-1.10 Sodium 143 mmol/L 136-146 Potassium 4.7 mmol/L 3.5-5.3 Chloride 106 mmol/L 98-110 Carbon Dioxide 28 mmol/L 20-32 Albumin 4.1 g/dL 3.5-4.7 Protein, Total 6.5 g/dL 6.4-8.3 Calcium 9.0 mg/dL 8.4-10.4 Alkaline Phosphatase 77 U/L 10-118 Sgot (Ast) 29 U/L 3-40 SGPT (Alt) 28 U/L 7-50 Bilirubin, Total 0.30 mg/dL 0.30-1.20 Lipid Panel 03/25/2009 [facility] Cholesterol, 233 mg/dL Abnormal <200 [phone] Total Triglycerides 63 mg/dL <150 HDL Cholesterol 51 mg/dL 40-60 Chol/HDL Cholesterol 4.6 61 LDL Cholesterol, Calc. 169 mg/dL Abnormal 62 LDL/HDL Cholesterol 3.3 63 GFR Calculated 03/25/2009 [facility] GFR (Calculated) >60 64 [phone] CBC 02/03/2008 [facility] WBC 5.3 x103 4.3-10. [phone] RBC 4.47 x106 3.80-5.30 Hemoglobin 14.2 g/dL 11.8-15.8 Hematocrit 43.5 % 35.0-47.0 MCV 97.3 fl 82.0-98.0 MCH 31.8 pg 27.5-33.5 MCHC 32.6 g/dL 32.0-36.0 RDW 12.7 % 11.5-14.5 Platelet Count 220 x103 130-400 MPV 10.2 fl 6.5-10.5 Segmented Neutrophils 48.5 % 44.0-74.0 Lymphocytes 38.0 % 15.0-45.0 Monocytes 8.7 % 2.0-13.0 Eosinophils 3.8 % 0.0-6.0 Basophils 1.0 % 0.0-2.0 Neutrophil Absolute 2.6 x103 1.4-7.0 Lymphocytes Absolute 2.0 x103 1.0-3.4 Monocyte Absolute 0.5 x103 0.2-1.0 Eosinophil Absolute 0.2 x103 0.0-0.5 Basophil Absolute 0.1 x103 0.0-0.2 Comprehensive Metabolic 02/03/2008 [facility] Glucose 97 mg /dL 70-100 [phone] BUN 19 mg/dL High 4-18 Creatinine, Serum 1.0 mg/dL 0.5-1.2 Sodium 142 mmol/L 136-146 Potassium 4.8 mmol/L 3.5-5.3 Chloride 105 mmol/L 98-110 Carbon Dioxide 28 mmol/L 20-32 Albumin 4.3 g/dL 3.5-4.7 Protein, Total 6.7 g/dL 6.4-8.3 Calcium 9.8 mg/dL 8.4-10.4 Alkaline Phosphatase 73 U/L 10-118 Sgot (Ast) 26 U/L 3-40 SGPT (Alt) 28 U/L 7-50 Bilirubin, Total 0.40 mg/dL 0.30-1.20 Laboratory 02/03/2008 [facility] TSH (Thyrotropin) 2.030 0.350-5.500 test finding [phone] uIU/ml T Transglutaminase Iga 1 U/mL 0-3 65 Vitamin D, 25 Oh 69.8 ng/mL 32.0-100.0 66 Gliadin 02/03/2008 [facility] Deamidated 3.6 U/mL 0.0- 10.0 67 Igg/Iga AB [phone] Gliadin Abs, IgA Deamidated Gliadin Abs, IgG 0.6 U/mL 0.0-10.0 68 Laboratory test 02/03/2008 [facility] GFR (Calculated) 60 69 finding [phone] Laboratory test 02/03/2008 [facility] Thin Prep SEE NOTE 70 finding [phone] W/HPV(Lsil/JASON/As c) Hemoccult 02/03/2008 [facility] Stool-Occult Blood NEG Neg (607)- - #1 Stool-Occult Blood #2 NEG Neg Stool-Occult Blood #3 NEG Neg Urine DIP 02/03/2008 [facility] Leukocytes NEG Neg (607)- - Urine Nitrites NEG Neg Urine pH 9 High 5-6 Total Protein, Urine NEG Neg Urine Glucose NORM Norm Urine Ketones NEG Neg Urobilinogen NORM Norm Urine Bilirubin NEG Neg Urine Blood NEG Neg Specific [place] NEG Low 1.01-1.02 Hemoccult 02/06/2007 [facility] Stool-Occult Blood #1 NEG Neg (607)- - Stool-Occult Blood #2 NEG Neg Stool-Occult Blood #3 NEG Neg Comprehensive Metabolic 01/31/2007 [facility] Glucose 85 mg /dL 70-100 [phone] BUN 20 mg/dL High 4-18 Creatinine, Serum 1.0 mg/dL 0.5-1.2 Sodium 142 mmol/L 136-146 Potassium 4.4 mmol/L 3.5-5.3 Chloride 104 mmol/L 98-110 Carbon Dioxide 24 mmol/L 20-32 Albumin 4.3 g/dL 3.5-4.7 Protein, Total 6.9 g/dL 6.4-8.2 Calcium 9.6 mg/dL 8.4-10.4 Alkaline Phosphatase 71 U/L 10-118 Sgot (Ast) 28 U/L 3-40 SGPT (Alt) 25 U/L 7-50 Bilirubin, Total 0.30 mg/dL 0.30-1.20 Lipid 01/31/2007 [facility] Cholesterol, 210 mg/dL High 120-200 71 Profile [phone] Total HDL Cholesterol 62 mg/dL High 40-60 LDL Cholesterol, Calc. 135 mg/dL AB 72 Triglycerides 66 mg/dL 73 LDL/HDL Cholesterol 2.2 74 Chol/HDL Cholesterol 3.4 75 Laboratory 01/31/2007 [facility] TSH (Thyrotropin) 2.110 0.350-5.500 test finding [phone] uIU/ml GFR (Calculated) 60 76 Laboratory test 01/31/2007 [facility] Helicobacter <0.89 0.00-0.88 77 finding [phone] Pylori,Iga index Laboratory test 01/31/2007 [facility] Thin Prep SEE NOTE 78 finding [phone] W/HPV(Lsil/JASON/ Asc) Urine DIP 01/31/2007 [facility] Leukocytes NEG Neg (607)- - Urine Nitrites NEG Neg Urine pH 9 High 5-6 Total Protein, Urine NEG Neg Urine Glucose NORM Norm Urine Ketones NEG Neg Urobilinogen NORM Norm Urine Bilirubin NEG Neg Urine Blood NEG Neg Specific [place] NA Low 1.01-1.02 Laboratory test 05/24/2006 [facility] C Reactive < 0.5 Less Than finding [phone] Protein mg/dL 0.5 CBC With 05/24/2006 [facility] White Blood 4.5 CUMM Low 4.8-10.8 Electronic Diff [phone] Count Abs Basophils 0 0-0.2 Abs Eosinophils 0.2 0-0.6 Absolute Neutrophil Count 2.2 1.5-7.7 Abs Lymphs 1.8 1.0-4.8 Abs Mononuclear 0.4 0-0.8 Basophil % 0.6 % 0-2 Hematocrit 41 % 35-47 Hemoglobin 14.3 g/dL 12.0-16.0 Eosinophil % 3.3 % 0-6 Gran % 47.9 % 38-83 Lymph % 39.4 % 20-45 Mean Corpuscular HGB Cone 35 g/dL 32-36 Mean Corpuscular Hemoglob 32 pg High 27-31 Mean Corpuscular Volume 94 um3 79-97 Mean Platelet Volume 7.3 um3 Low 7.4-10.4 Mononuclear % 8.8 % 1-9 Platelet Count 265 CUMM 150-450 Red Cell Count 4.40 CUMM 4.2-5.4 Redcell Distribution WDTH 12 % 10.5-15 Laboratory test 05/24/2006 [facility] Erythrocyte Sed 1 MM/HR 0-30 finding [phone] Rate Hemoccult 03/01/2006 [facility] Stool-Occult neg 02/21 Neg (607)- - Blood #1 Stool-Occult Blood #2 neg 02/23 Neg Stool-Occult Blood #3 neg 02/24 Neg Comprehensive Metabolic 08/15/2005 [facility] Glucose 83 mg /dL 70-100 [phone] BUN 20 mg/dL High 4-18 Creatinine, Serum 1.0 mg/dL 0.5-1.2 Sodium 143 mmol/L 136-146 Potassium 4.0 mmol/L 3.5-5.3 Chloride 105 mmol/L 98-110 Carbon Dioxide 30 mmol/L 20-32 Albumin 4.2 g/dL 3.5-4.7 Protein, Total 6.6 g/dL 6.4-8.2 Calcium 9.0 mg/dL 8.4-10.4 Alkaline Phosphatase 69 U/L 10-118 Sgot (Ast) 25 U/L 3-30 SGPT (Alt) 20 U/L 7-40 Bilirubin, Total 0.32 mg/dL 0.30-1.20 Laboratory test 08/15/2005 [facility] CK, Total 63 U/L 29-229 finding [phone] TSH (Thyrotropin) 2.230 uIU/ml 0.350-5.500 T-4 Free 1.1 ng/dL 0.8-1.8 Magnesium 2.4 mg/dL 1.7-2.7 Vitamin B-12 468 pg/mL 79 GFR (Calculated) 60 80 Urine DIP 08/15/2005 [facility] Leukocytes neg Neg (607)- - Urine Nitrites neg Neg Urine pH 5 5-6 Total Protein, Urine neg Neg Urine Glucose norm Norm Urine Ketones neg Neg Urobilinogen norm Norm Urine Bilirubin neg Neg Urine Blood neg Neg Specific Yre[place] na Low 1.01-1.02 Hemoccult 02/07/2005 [facility] Stool-Occult Blood #1 NEG 02/03 Neg (607)- - Stool-Occult Blood #2 NEG 02/04 Neg Stool-Occult Blood #3 NEG 02/05 Neg Laboratory test 08/09/2004 [facility] Thinprep W/HPV REC'D- SEE finding [phone] JASON/Acus/LGSIL IMAGE Urine DIP 08/09/2004 [facility] Leukocytes NEG Neg (607)- - Urine Nitrites NEG Neg Urine pH 5 5-6 Total Protein, Urine NEG Neg Urine Glucose NORM Norm Urine Ketones NEG Neg Urobolinogen NORM Norm Urine Bilirubin NEG Neg Urine Blood NEG Neg Specific [place] NA Low 1.01-1.02 Hemoccult 03/04/2004 [facility] Stool-Occult Blood #1 NEG Neg (607)- - Stool-Occult Blood #2 NEG Neg Stool-Occult Blood #3 NEG Neg Urine DIP 08/05/2003 [facility] Leukocytes NEG Neg (607)- - Urine Nitrites NEG Neg Urine pH 5 5-6 Total Protein, Urine NL Neg Urine Glucose NL Norm Urine Ketones NL Neg Urobolinogen NL Norm Urine Bilirubin NL Neg Urine Blood NL Neg Specific Yre[place] N/A Low 1.01-1.02 Laboratory test 08/05/2003 [facility] Thin Layer Pap REC'D-SEE IMAGE finding [phone] W/Reflex To HPV For ASCUS Laboratory test 03/15/2003 [facility] Culture Stool PRELIMINARY finding (607)- - Stool-Giardia Lamblia Antigen NEGATIVE Hemoccult 12/16/2002 [facility] Stool-Occult Blood #1 NEG Neg (607)- - Stool-Occult Blood #2 NEG Neg Stool-Occult Blood #3 NEG Neg Comp Metabolic 12/10/2002 [facility] Anion Gap 9.0 mmol/L 2-11 81 Panel [phone] Albumin/Globulin Ratio 1.7 1-3 Albumin 4.0 GM/DL 3.6-5.4 BUN 14 mg/dL 6-24 Calcium 9.7 mg/dL 8.7-10.2 Chloride 102 mmol/L 101-111 Co2 (Carbon Dioxide) 29.0 mmol/L 22-32 Creatinine 0.9 mg/dL 0.5-1.4 Globulin 2.4 GM/DL 2-4 Glucose 91 mg/dL 70-105 Potassium 4.6 mmol/L 3.5-5.0 Sodium 140 mmol/L 135-145 Total Protein 6.4 GM/DL 6.2-8.1 BUN/Creatinine Ratio 15.6 8-20 Alkaline Phosphatase 61 U/L 30-110 Alt (SGPT) 24 U/L 14-54 Ast (Sgot) 25 U/L 12-42 Bilirubin Total 0.4 mg/dL 0.4-1.5 Urine DIP 08/06/2002 [facility] Leukocytes NEG Neg (607)- - Urine Nitrites NEG Neg Urine pH 5 5-6 Total Protein, Urine NEG Neg Urine Glucose NORM Norm Urine Ketones NEG Neg Urobolinogen NORM Norm Urine Bilirubin NEG Neg Urine Blood NEG Neg Specific [place]re[place] #2 DIP OK High 1.01-1.02 Laboratory test 08/06/2002 [facility] Pap Smear REC'D -SEE IMAGE finding [phone] Urine DIP 08/06/2002 [facility] Leukocytes NEG Neg (607)- - Urine Nitrites POS Neg Urine pH 5 5-6 Total Protein, Urine NEG Neg Urine Glucose NORM Norm Urine Ketones NEG Neg Urobolinogen NORM Norm Urine Bilirubin NGE Neg Urine Blood NEG Neg Specific [place]re[place] NA Low 1.01-1.02 Lipid Profile 09/23/2001 [facility] Cholesterol, 177 mg/dL 120.0 - 82 [phone] Total 200.0 Chol/HDL Cholesterol 3.6 83 HDL Cholesterol 49 mg/dL 35.0 - 9999.0 LDL/HDL Cholesterol 2.3 84 LDL Cholesterol 115 mg/dL 85 Triglycerides 64 mg/dL 37.0 - 241.0 Urine DIP 09/20/2001 [facility] Leukocytes NL Neg (607)- - Urine Nitrites NEG Neg Urine pH 5 5-6 Total Protein, Urine NEG Neg Urine Glucose NL Norm Urine Ketones NEG Neg Urobolinogen NL Norm Urine Bilirubin NEG Neg Urine Blood NEG Neg Specific Yre[place] N/A Low 1.01-1.02 1 Because ethnic data is not always readily available, this report includes an eGFR for both -Americans and non- Americans. The National Kidney Disease Education Program (NKDEP) does not endorse the use of the MDRD equation for patients that are not between the ages of 18 and 70, are , have extremes of body size, muscle mass, or nutritional status, or are non- or non-. According to the National Kidney Foundation, irrespective of diagnosis, the stage of the disease is based on the level of kidney function: Stage Description GFR(mL/min/1.73 m(2)) 1 Kidney damage with normal or decreased GFR 90 2 Kidney damage with mild decrease in GFR 60-89 3 Moderate decrease in GFR 30-59 4 Severe decrease in GFR 15-29 5 Kidney failure <15 (or dialysis) 2 Normal Range 180 to 914 Indeterminate Range 145 to 180 Deficient Range <145 3 [id number] Warning: A positive result is not useful for establishing a diagnosis of syphilis. In most situations, such a result may reflect a prior treated infection; a negative result can exclude a diagnosis of syphilis except for incubating or early primary disease. 5 Normal Range 180 to 914 Indeterminate Range 145 to 180 Deficient Range <145 6 [id number] Warning: A positive result is not useful for establishing a diagnosis of syphilis. In most situations, such a result may reflect a prior treated infection; a negative result can exclude a diagnosis of syphilis except for incubating or early primary disease. 8 [facility] Severe Sepsis and Septic Shock Management Bundle Measure requires all lactic acids initially measuring >2.0 mmol/L be repeated. 9 *Ascorbic acid is present which may interfere with detection of blood. 10 Because ethnic data is not always readily available, this report includes an eGFR for both -Americans and non- Americans. The National Kidney Disease Education Program (NKDEP) does not endorse the use of the MDRD equation for patients that are not between the ages of 18 and 70, are , have extremes of body size, muscle mass, or nutritional status, or are non- or non-. According to the National Kid[employer] Foundation, irrespective of diagnosis, the stage of the disease is based on the level of kidney function: Stage Description GFR(mL/min/1.73 m(2)) 1 Kidney damage with normal or decreased GFR 90 2 Kidney damage with mild decrease in GFR 60-89 3 Moderate decrease in GFR 30-59 4 Severe decrease in GFR 15-29 5 Kidney failure <15 (or dialysis) 11 Reference Range and Interpretation: TnI (ng/mL) Interpretation Less Than 0.03 ng/mL Not supportive of diagnosis of [place] 0.03 - 0.50 ng/mL Indeterminate: suggest serial studies if clinically indicated. Greater than 0.5 ng/mL Consistent with diagnosis of [place] 12 Because ethnic data is not always readily available, this report includes an eGFR for both -Americans and non- Americans. The National Kidney Disease Education Program (NKDEP) does not endorse the use of the MDRD equation for patients that are not between the ages of 18 and 70, are , have extremes of body size, muscle mass, or nutritional status, or are non- or non-. According to the National Kid[employer] Foundation, irrespective of diagnosis, the stage of the disease is based on the level of kidney function: Stage Description GFR(mL/min/1.73 m(2)) 1 Kidney damage with normal or decreased GFR 90 2 Kidney damage with mild decrease in GFR 60-89 3 Moderate decrease in GFR 30-59 4 Severe decrease in GFR 15-29 5 Kidney failure <15 (or dialysis) 13 Desirable <150 Borderline high 150-199 High 200-499 Very High >500 14 Desirable <200 Borderline high 200-239 High >239 15 Low <40 Desirable: 40-60 High: >60 16 Desirable: <100 mg/dL Near Optimal: 100-129 mg/dL Borderline High: 130-159 mg/dL High: 160-189 mg/dL Very High: >189 mg/dL 17 Desirable <150 Borderline high 150-199 High 200-499 Very High >500 18 Desirable <200 Borderline high 200-239 High >239 19 Low <40 Desirable: 40-60 High: >60 20 Desirable <100 Near Optimal 100-129 Borderline high 130-159 High 160-189 Very High >189 21 Potassium reference range changed effective 04/12/14 22 Because ethnic data is not always readily available, this report includes an eGFR for both -Americans and non- Americans. The National Kidney Disease Education Program (NKDEP) does not endorse the use of the MDRD equation for patients that are not between the ages of 18 and 70, are , have extremes of body size, muscle mass, or nutritional status, or are non- or non-. According to the National Kidney Foundation, irrespective of diagnosis, the stage of the disease is based on the level of kidney function: Stage Description GFR(mL/min/1.73 m(2)) 1 Kidney damage with normal or decreased GFR 90 2 Kidney damage with mild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 Transmission Examination 272.2 Hyperlipidemia Mixed 365.9 Glaucoma Unspec 780.4 Dizziness & Giddiness 733.90 Bone & Cartilage Disorder Unspec Office Visit 04/20/2010 8:30a Main Office Juan Neil, 272.2 Hyperlipidemia Mixed Parvin.Jennifer, R.D. V72.31 Routine Superintendent Transmission Examination V76.51 Special Screening For Malignant Neoplasms Colon V70.0 Examination General Medical Routine AT Health Care Facility 787.60 Full Incontinence Of Feces 702.19 Seborrheic Keratosis Other Office Visit 10/20/2009 9:00a Main Office Juan Neil, 616.10 Vaginitis & Tiana RIbanDIban Vulvovaginitis Unspec Office Visit 10/06/2009 9:45a Main Office Juan Neil, 272.2 Hyperlipidemia Mixed Tiana, R.D. Office Visit 06/08/2009 2:30p Main Office Jocelynn Brunson 724.5 Backache Unspec Tiana Mccormick Office Visit 03/31/2009 8:15a Main Office Juan Neil, 715.90 Osteoarthrosis Tiana, R.D. Unspec Genlzd Or Localzd Site Unspec 365.9 Glaucoma Unspec 530.81 Esophageal Reflux V76.51 Special Screening For Malignant Neoplasms Colon 272.2 Hyperlipidemia Mixed V04.81 Need For Prophylactic Vaccination & Inoculation/Influenza V72.31 Routine Superintendent Transmission Examination V03.82 Streptococcus Pneumoniae Vaccination Spec Other Office Visit 03/11/2008 12:30p Main Office Jocelynn Mccormick 365.9 Glaucoma Unspec M.DIban V04.81 Need For Prophylactic Vaccination & Inoculation/Influenza Office Visit 02/03/2008 9:00a Main Office Jocelynn Brunson V72.31 Routine Superintendent Transmission Tiana Mccormick Examination 553.3 Hernia Diaphragmatic 715.90 Osteoarthrosis Unspec Genlzd Or Localzd Site Unspec 724.5 Backache Unspec 110.1 Dermatophytosis Nail 787.91 Diarrhea 389.9 Hearing Loss Unspec V76.9 Screening Malignant Neoplasm Unspec Office Visit 09/10/2007 3:00p Main Office Jocelynn Brunson 715.90 Osteoarthrosis Unspec Candicegen, M.D. 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 Office Visit 10/31/2005 11:15a Main Office Aj Mitchell, 528.9 Oral Soft Tissue M.D. Diseases Other & Unspec Office Visit 10/11/2005 10:00a Main Office Rex Elliott M.D. 461.9 Sinusitis Acute Unspec Office Visit 08/24/2005 11:30a Main Office Jocelynn Brunson 461.0 Sinusitis Acute Tiana Mccormick Maxillary Office Visit 08/15/2005 12:00p Main Office Jocelynn Brunson V72.31 Routine Superintendent Transmission Tiana Mccormick Examination 733.90 Bone & Cartilage Disorder Unspec 729.1 Myalgia & Myositis Unspec V06.1 Lnsqpgaeuf-Ektjkcs-Ysxiwewe Combined (DTaP) Office Visit 04/05/2005 11:45a Main Office Rex Elliott, 786.50 Pain Chest Unspec M.D. Office Visit 08/09/2004 1:00p Main Office Carmen Israel V72.31 Routine Superintendent Transmission M.DIban Examination V70.0 Examination General Medical Routine AT Health Care Facility V76.47 Special Screening For Malignant Neoplasms Vagina 733.90 Bone & Cartilage Disorder Unspec Office Visit 06/13/2004 10:30a Main Office Ro Steiner 665.70 Hematoma Pelvic Tiana Alvarado Episode Of Care Unspec Or N/A 782.7 Ecchymoses Spontaneous Office Visit 08/05/2003 8:30a Main Office Carmen Israel V72.3 Examination M.D. Gynecological V70.0 Examination General Medical Routine AT Health Care Facility Office Visit 06/16/2003 2:45p Main Office Carmen Israel, V58.3 Surgical Dressings M.D. & Sutures Encounter Office Visit 05/22/2003 11:45a Main Office Joseph Navjot, 882.0 Open Wound Hand M.D. Except Finger(S) W/O Complication E906.3 Bite Other Animal Except Arthropod Office Visit 04/08/2003 10:00a Main Office Carmen Israel, 564.1 Irritable Bowel M.D. Syndrome Office Visit 08/06/2002 8:00a Main Office Camren Israel, V72.3 Examination M.D. Gynecological V70.0 Examination General Medical Routine AT [facility] 726.11 Tendinitis Calcifying Shoulder Office Visit 09/20/2001 2:15p Main Office Carmen Israel, V70.0 Examination General M.D. Medical Routine AT [facility] Plan of Treatment 05/13/2018 - Juan Neil M.D., R.D.Z00.00 Encounter for general adult medical examination without abnoNew Labs:Lipid Profile (Trig/Chol/HDL), Ordered : 05/13/18Recommendations:The 5 Year Plan for your preventive health care is: Flu shot yearly. Annual exam at [facility]. Regular dental care. Eye exam yearly. Check your cholesterol and screen for diabetes yearly. Follow up in 6 mos.Z23 Encounter for immunization
--- NOTE | 2018-10-14 20:10 | ED ---
Lower Extremity - HPI Summary HPI Summary: The patient is a 73 year old female who is presenting to the [facility] with a chief complaint of wound slightly above the left ankle. The wound is described as a laceration slightly above the left ankle which was closed by suture. The patient was brought here today by her and accompanied by . She denies SOB, N/V, coughing, and urinary symptoms. She reports of weakness, and low grade fever as well as bruising at both the left and right ankles. Medication was reported and noted. The patient rates the pain as 0/10 in severity. Symptoms aggravated by nothing. Symptoms are alleviated by nothing. - History of Current Complaint Chief Complaint: EDExtremityLower Stated Complaint: RIGHT ANKLE INJURY/INFECTION PER SPOUSE Time Seen by Provider: 10/14/18 19:55 Hx Obtained From: Patient, Family/Art Appraiser - Onset/Duration: Weeks - 1 week ago Severity Currently: None Pain Intensity: 0 Pain Scale Used: 0-10 Numeric Location: Is Discrete @ - left ankle Associated Signs And Symptoms: Positive: Fever, Weakness Aggravating Factor(s): Nothing Alleviating Factor(s): Nothing Able to Bear Weight: Yes - Allergies/Home Medications Allergies/Adverse Reactions: Allergies Allergy/AdvReac Type Severity Reaction Status Date / Time tetracycline Allergy Rash Verified 10/07/18 03:22 PMH/Surg Hx/FS Hx/Imm Hx Endocrine/Hematology History: Denies: Hx Diabetes Cardiovascular History: Denies: Hx Hypertension, Hx Pacemaker/ICD History: Denies: Hx Dialysis, Hx Renal Disease Musculoskeletal History: Denies: Hx Rheumatoid Arthritis, Hx Osteoporosis Sensory History: Denies: Hx Hearing Aid Psychiatric History: Denies: Hx Panic Disorder - Cancer History Cancer Type, 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 CYST ON COCYX TAKEN OFF 1961. CATARACTS BILATERAL EYES Infectious Disease History: No Infectious Disease History: Denies: Traveled Outside the [place] in Last 30 Days - Family History Known Family History: Positive: Unknown - Pt has dementia - Social History Alcohol Use: Daily Alcohol Amount: a glass of wine with dinner Hx Substance Use: No Substance Use Type: Reports: None Hx Tobacco Use: No Smoking Status (MU): Never Smoked Tobacco Review of Systems Positive: Fever Eyes: Negative ENT: Negative Cardiovascular: Negative Negative: Shortness Of Breath, Cough Negative: Vomiting, Nausea Positive: no symptoms reported Musculoskeletal: Other - left ankle pain Skin: Other - Laceration slightly above the left ankle Positive: Bruising - Ankles (Bilaterally) Positive: Weakness Psychological: Normal All Other Systems Reviewed And Are Negative: Yes Physical Exam - Summary Physical Exam Summary: VITAL SIGNS: Reviewed. GENERAL: Patient is a well-developed and nourished (FEMALE) who is lying comfortable in the stretcher. Patient is not in any acute respiratory distress. HEAD AND FACE: No signs of trauma. No ecchymosis, hematomas or skull depressions. No sinus tenderness. EYES: PERRLA, EOMI x 2, No injected conjunctiva, no nystagmus. EARS: Hearing grossly intact. Ear canals and tympanic membranes are within normal limits. MOUTH: Oropharynx within normal limits. NECK: Supple, trachea is midline, no adenopathy, no JVD, no carotid bruit, no c- spine tenderness, neck with full ROM CHEST: Symmetric, no tenderness at palpation LUNGS: Clear to auscultation bilaterally. No wheezing or crackles. CVS: Regular rate and rhythm, S1 and S2 present, no murmurs or gallops appreciated. ABDOMEN: Soft, non-tender. No signs of distention. No rebound no guarding, and no masses palpated. Bowel sounds are normal. EXTREMITIES: Right ankle tenderness NEURO: Alert orientated to her name somewhat confused but this is baseline. No acute neurological deficits. Speech is normal and follows commands. SKIN: Stitches at left ankle healing well with mild hyperemia around it Right ankle redness medially and warmness Triage Information Reviewed: Yes Vital Signs On Initial Exam: Initial Vitals Temp Pulse Resp BP Pulse Ox 98.3 F 102 18 161/93 97 10/14/18 19:08 10/14/18 19:08 10/14/18 19:08 10/14/18 19:08 10/14/18 19:08 Vital Signs Reviewed: Yes Diagnostics - Vital Signs Vital Signs Temp Pulse Resp BP Pulse Ox 10/14/18 19:08 98.3 F 102 18 161/93 97 - Laboratory Result Diagrams: 10/14/18 21:10 10/14/18 21:10 Lab Statement: Any lab studies that have been ordered have been reviewed, and results considered in the medical decision making process. - Radiology Chest X-ray Radiology Interpretation Completed By: ED Physician Summary of Radiographic Findings: CXR as per ED Physician reveals negative findings. Lower Extremity Course/Dx - Course Course Of Treatment: The patient is a 73 year old female who is presenting to the [facility] with chief complaints of left ankle pain and laceration. She reports of weakness, and fever (low grade at 100.2 F). Rectal temperature taken in the [facility] is consistent with reported fever temperature. Physical exam showed mild hyperemia at the left ankle surroudning the wound, right ankle redness, right ankle tenderness and right ankle warmness. CXR and UA were done in the [facility]. Upon evaluation of the UA results, The patient will be discharged home with a dx of right ankle cellulits. She is agreeable with this plan. - Diagnoses Provider Diagnoses: Cellulitis of right ankle Discharge - Sign-Out/Discharge Documenting (check all that apply): Patient Departure - DISCHARGED HOME Patient Received Moderate/Deep Sedation with Procedure: No - Discharge Plan Condition: Stable Disposition: HOME Referrals: Yady Munoz MD [Primary Care Provider] - - Attestation Statements Document Initiated by Scribe: Yes Documenting Scribe: Heladio Miller Provider For Whom Zoey is Documenting (Include Credential): Dr. Fredrick Greer Attestation: Heladio Reyes scribed for Dr. Neeru Santana on 10/14/18 at 2226. Status of Scribe Document: Ready
[2018-10-14] MEDS ORDERED: NS 0.9% 1000 ML** 1,000 ML IV.FLUID IV ONE (20:14)
[2018-10-14 21:19] LABS: ABS Basophils 0.1 10^3/ul (0-0.2); ABS Eosinophils 0.3 10^3/ul (0-0.6); ABS Lymphocytes 1.2 10^3/ul (1.0-4.8); ABS Monocytes 1.1 10^3/ul (0-0.8); ABS Neutrophils 4.1 10^3/ul (1.5-7.7); Hematocrit 37 % (35-47); Hemoglobin 12.9 g/dL (12.0-16.0); Lymphocyte % 17.7 %; Mean Corpuscular HGB Conc 35 g/dL (31-36); Mean Corpuscular Hemoglobin 32 pg (27-31); Mean Corpuscular Volume 92 fL (80-97); Mean Platelet Volume 6.8 fL (7.4-10.4); Platelet Count 240 10^3/uL (150-450); Red Blood Count 4.02 10^6 /uL (3.70-4.87); Red Cell Distribution Width 13 % (10.5-15); White Blood Count 6.8 10^3/uL (3.5-10.8)
[2018-10-14 21:30] LABS: Activated Partial Thrombo Time 28.3 seconds (26.0-36.3); INR 0.96 (0.82-1.09)
[2018-10-14 21:34] LABS: Albumin/Globulin Ratio 1.3 (1-3); BUN/Creatinine Ratio 28.6 (8-20); C Reactive Protein 13.26 mg/L (<8.01); Calcium 9.2 mg/dL (8.6-10.3); EGFR African American 111.8 (>60); EGFR Non-African American 92.4 (>60); Potassium 4.1 mmol/L (3.5-5.0); Total Bilirubin 0.3 mg/dL (0.2-1.0)
[2018-10-14 22:14] VITALS: BP 162/71
[2018-10-14 22:20] LABS: Urine Appearance Clear; Urine Bilirubin Negative (Negative); Urine Blood Negative (Negative); Urine Color Straw; Urine Glucose Negative (Negative); Urine Ketones Negative (Negative); Urine Nitrite Negative (Negative); Urine Protein Negative (Negative); Urine Specific Gravity 1.009 (1.010-1.030); Urine Urobilinogen Negative (Negative)
[2018-10-14] MEDS ORDERED: Sulfamethox/Trimethoprim DS 800/160* TAB PO ONE (22:25)
== END 2018-10-14 22:45 | disposition home or self-care (01) ==
LOC: ED 18:42
DX: L03.116 Cellulitis of left lower limb (principal); Z88.8 Allergy status to other drugs, medicaments and biological substances; Z85.820 Personal history of malignant melanoma of skin
CPT/HCPCS: 36415; 71045; 80053; 81003; 83605; 85025; 85610; 85730; 86140; 87040; 96360; 96361; 99283; A9270-GY

== ENCOUNTER 2018-10-22 09:02 | Inpatient (IN) | payer MEDICARE, BC ==
[2018-10-22] MEDS ORDERED: NS 0.9% 1000 ML** 1,000 ML IV.FLUID IV ONE (09:21)
[2018-10-22] MEDS ORDERED: Clindamycin 600 MG IVPREMIX(* 600 MG/50 ML SDV IV ONE (09:21)
--- NOTE | 2018-10-22 09:49 | ED ---
Sepsis HPI - HPI Summary HPI Summary: Patient is a 73-year-old female with a history of dementia from [place] presenting by EMS/ALS with increased lethargy, incontinence of urine, abnormal mentation and febrile at 102. Patient was also tachycardic. They state she was very drowsy and disoriented to place and time, oriented to person. She is currently being treated with cellulitis with Bactrim from a laceration last week to the left outside lower extremity. Sutures are intact. Bilateral lower extremity erythema and warmth. Level V caveat as patient is demented. Answering a few questions intermittently, but not appropriate responses. - History of Current Complaint Chief Complaint: EDFever Time Seen by Provider: 10/22/18 09:12 Stated Complaint: POSS SEPSIS PER EMS Hx Obtained From: EMS, Medical Records Hx From Patient Unobtainable Due To: Dementia Onset/Duration: Started Hours Ago Timing: Constant Onset Severity: Moderate Current Severity: Moderate Pain Intensity: 0 Pain Scale Used: 0-10 Numeric Aggravating Symptom(s): Unknown Alleviating Factor(s): Unknown Associated Signs & Symptoms: Negative - Risk Factor(s) Pseudomonas Risk Factors: Negative Serious Bacterial Infection Risk Factors: Negative - Allergy/Home Medications Allergies/Adverse Reactions: Allergies Allergy/AdvReac Type Severity Reaction Status Date / Time tetracycline Allergy Rash Verified 10/22/18 09:20 Home Medications: Home Medications Aspirin [Aspir-Low] 81 mg PO DAILY 10/22/18 [History Confirmed 10/22/18] Brimonidine Tartrate/Timolol [Combigan 0.2%-0.5% Eye Drops] 1 drop OP BID [History Confirmed 10/22/18] Calcium Carbonate/Vitamin D3 [Calcium/Vitamin D] 1 cap PO DAILY 10/22/18 [ History Confirmed 10/22/18] Melatonin [Meladox] 3 mg PO BEDTIME 10/22/18 [History Confirmed 10/22/18] Multivitamin [Multivitamins] 1 cap PO DAILY 10/22/18 [History Confirmed 10/22/18 ] Risperidone [Risperdal] 0.5 mg PO BID 10/22/18 [History Confirmed 10/22/18] PMH/Surg Hx/FS Hx/Imm Hx Previously Healthy: Yes Endocrine/Hematology History: Denies: Hx Diabetes Cardiovascular History: Denies: Hx Hypertension, Hx Pacemaker/ICD History: Denies: Hx Dialysis, Hx Renal Disease Musculoskeletal History: Denies: Hx Rheumatoid Arthritis, Hx Osteoporosis Sensory History: Denies: Hx Hearing Aid Psychiatric History: Denies: Hx Panic Disorder - Cancer History Cancer Type, 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 CYST ON COCYX TAKEN OFF 1961. CATARACTS BILATERAL EYES - Immunization History Hx Pertussis Vaccination: No Immunizations Up to Date: Yes Infectious Disease History: No Infectious Disease History: Denies: Traveled Outside the [place] in Last 30 Days - Family History Known Family History: Positive: Unknown - Pt has dementia - Social History Occupation: Unemployed Lives: [facility] Alcohol Use: Daily Alcohol Amount: a glass of wine with dinner Hx Substance Use: No Substance Use Type: Reports: None Hx Tobacco Use: No Smoking Status (MU): Never Smoked Tobacco Review of Systems - ROS Summary Review of Systems Summary: LEVEL V CAVEAT - DEMENTIA Positive: Fever. Negative: Chills, Fatigue, Skin Diaphoresis Negative: Palpitations, Chest Pain Negative: Shortness Of Breath, Cough Positive: Other - blotchy All Other Systems Reviewed And Are Negative: Yes Physical Exam Triage Information Reviewed: Yes Vital Signs On Initial Exam: Initial Vitals Temp Pulse Resp BP Pulse Ox 99.2 F 91 20 151/56 97 10/22/18 09:10 10/22/18 09:10 10/22/18 09:10 10/22/18 09:10 10/22/18 09:10 Completion Of Physical Exam Limited Due To: Altered Mental Status Appearance: Positive: Ill-Appearing, Thin Skin: Positive: Erythema @ - bilateral cheeks/blotchy erythematous abdomen, erythematous and warm bilateral lower ext. Head/Face: Positive: Normal Head/Face Inspection Eyes: Positive: EOMI, Conjunctiva Clear Neck: Positive: Supple, No Lymphadenopathy Respiratory/Lung Sounds: Positive: Clear to Auscultation, Breath Sounds Present Cardiovascular: Positive: Tachycardia, Leg Edema Left, Leg Edema Right - erythema to lower ext. Neurological: Positive: Other - alert to person only AVPU Assessment: Verbal (Reponds To) - Mary Coma Scale Best Eye Response: 4 - Spontaneous Best Motor Response: 5 - Purposeful Movement - baseline per EMS Best Verbal Response: 4 - Confused Coma Scale Total: 13 Diagnostics - Vital Signs Vital Signs Temp Pulse Resp BP Pulse Ox 10/22/18 09:43 98 10/22/18 09:24 90 16 130/68 98 10/22/18 09:10 99.2 F 91 20 151/56 97 - Laboratory Result Diagrams: 10/22/18 09:29 10/22/18 09:29 Lab Statement: Any lab studies that have been ordered have been reviewed, and results considered in the medical decision making process. Course/Dx - Course Course Of Treatment: The patient arrives to the ED with a temp of 99.2, heart rate of 91, respirations 20, 97% on room air and 151/56. Patient appears lethargic and is not answering questions appropriately, however provider is unfamiliar with patient and this may be her baseline. She is confused, however has a history of dementia. Per EMS, they state she was tachycardic and with a 102 fever. On physical examination, patient appears ill, erythema throughout, worse to the bilateral cheeks and abdomen with increased temperature. Also erythematous areas to the bilateral lower extremities and a laceration to the left outside lower extremity measuring 4 cm with sutures intact. She is recently completed her course of Bactrim as of today. With elevated temp and HR , patient is given abx, fluids and septic workup applied. Per nursing staff, they woke patient and she was not mentating to her usual degree, and she had evidence of blotchy skin throughout. She was given fluids and clindamycin. Likely this related to her left lower extremity, but will require further workup. Called hospitalist, Dr. Gtz, who agrees to admit patient for further workup. 4 sutures removed from the left lower extremity. Urine pending. - Differential Dx/Clinical Impression Differential Diagnosis/HQI/PQRI: Other - Cellulitis, sepsis, infection, altered mental status, incontinence Provider Diagnosis: Cellulitis, Altered mental status - Provider Notifications Discussed Care Of Patient With: Jacki Gtz Instructed by Provider To: Admit As Inpatient - Critical Care Time Critical Care Time: 30-74 min Discharge - Sign-Out/Discharge Documenting (check all that apply): Patient Departure Patient Received Moderate/Deep Sedation with Procedure: No - Discharge Plan Condition: Fair Disposition: ADMITTED TO [facility] Referrals: Yady Munoz MD [Primary Care Provider] - - Billing Disposition and Condition Condition: FAIR Disposition: Admitted to [facility]
[2018-10-22 09:58] LABS: ABS Lymphocytes 0.7 10^3/ul (1.0-4.8); ABS Monocytes 0.6 10^3/ul (0-0.8); Hematocrit 34 % (35-47); Hemoglobin 11.7 g/dL (12.0-16.0); Mean Corpuscular HGB Conc 35 g/dL (31-36); Mean Corpuscular Hemoglobin 32 pg (27-31); Mean Corpuscular Volume 91 fL (80-97); Nucleated Red Blood Cells % 0.1; Platelet Count 174 10^3/uL (150-450); Red Cell Distribution Width 14 % (10.5-15); White Blood Count 7.3 10^3/uL (3.5-10.8)
[2018-10-22 10:12] LABS: Activated Partial Thrombo Time 26.4 seconds (26.0-36.3); INR 1.14 (0.82-1.09)
[2018-10-22 10:15] LABS: Troponin I 0.01 ng/mL (<0.04)
[2018-10-22 10:16] LABS: Albumin 3.2 g/dL (3.2-5.2); Albumin/Globulin Ratio 1.3 (1-3); BUN/Creatinine Ratio 15.5 (8-20); C Reactive Protein 28.21 mg/L (<8.01); EGFR African American 80.2 (>60); EGFR Non-African American 66.3 (>60); Globulin 2.5 g/dL (2-4); Potassium 4.5 mmol/L (3.5-5.0); Total Bilirubin 0.5 mg/dL (0.2-1.0); Total Protein 5.7 g/dL (6.4-8.9)
[2018-10-22 12:38] LABS: Urine Appearance Clear; Urine Bilirubin Negative (Negative); Urine Blood Negative (Negative); Urine Color Yellow; Urine Glucose Negative (Negative); Urine Ketones Negative (Negative); Urine Nitrite Negative (Negative); Urine Protein Negative (Negative); Urine Specific Gravity 1.018 (1.010-1.030); Urine Urobilinogen Negative (Negative)
[2018-10-22] MEDS ORDERED: Acetaminophen TAB* 325 MG PO PRN ×2 (12:48→17:00)
[2018-10-22] MEDS ORDERED: NS 0.9% 1000 ML** 1,000 ML IV ONE (12:55)
[2018-10-22] MEDS ORDERED: Acetaminophen SUPP* 650 MG SUPP ONE (13:10)
[2018-10-22] MEDS: Acetaminophen SUPP* 650 MG SUPP PR ONE ×2 (13:13→22:39)
[2018-10-22 13:47] LABS: Influenza A Molecular NEGATIVE (Negative); Influenza B Molecular NEGATIVE (Negative)
[2018-10-22] MEDS ORDERED: cefTRIAXone(*) 1 GM in NS 0.9% 50 ML* 50 ML IVPB SCH (14:00)
[2018-10-22] MEDS: Enoxaparin(*) 30 MG/0.3 ML SYR SUBCUT SCH (14:46)
[2018-10-22] MEDS: Brimonidine/Timolol 0.2%/0.5% OPTH(NF) SOL 5 ML LEFT EYE SCH (21:02)
[2018-10-22] MEDS: Melatonin 3 MG TAB PO SCH (21:04)
[2018-10-22] MEDS ORDERED: Acetaminophen ADULT LIQ* 650 MG/20.3 ML UDC PO PRN (21:12)
[2018-10-23] MEDS ORDERED: NS 0.9% 1000 ML** 1,000 ML IV SCH (00:45)
--- NOTE | 2018-10-23 02:32 | HP ---
CC: Dr. Lloyd * HISTORY AND PHYSICAL: DATE OF ADMISSION: 10/22/18 PRIMARY CARE PROVIDER: Sugar Dennis NP ATTENDING PHYSICIAN WHILE IN THE HOSPITAL: Dr. Jacki Fuentes * (dictated by Sugar Dennis NP). CHIEF COMPLAINT: Fever, altered mental status. HISTORY OF PRESENT ILLNESS: Ms. Gomez is a 73-year-old female with the past medical history significant for dementia and glaucoma who presented from [facility]. History was obtained from the patient's as the patient does have severe dementia and is unable to participate in answering questions. The patient had a cut on her leg approximately 2 weeks ago. She received stitches and the leg developed infection. She was diagnosed with cellulitis and started on Bactrim. The reports that the patient took Bactrim for approximately 1 week. She was seen at her primary care doctor's office on Sunday and felt that the stitches were not ready to come out, so the stitches remained in her leg. reports that she has been taking Bactrim from about a week and this morning the caregivers went in to give her medication. She had an alteration in the mental status and a fever, so they sent her to the emergency room for further evaluation. The does report that the patient was doing well over the weekend and did not have any issue. She went out to dinner for mother's day. reports that she has fevers. Rest of review of systems is unobtainable as the patient is unable to participate in answering questions. There has been no reports of vomiting or diarrhea or abdominal pain. The patient does have a generalized macular rash that is red and blanchable. Appears to be a reaction to medication. While in the emergency room, the patient had routine lab work drawn and a chest x- ray, which showed no active cardiopulmonary disease. The patient had a fever of 102.5 in the emergency room and tachycardia. Due to the fever and tachycardia, unknown source of fever, we were asked to see and evaluate her for admission. PAST MEDICAL HISTORY: Significant for: 1. Dementia. 2. Glaucoma. PAST SURGICAL HISTORY: Right knee surgery. MEDICATIONS: Home medications: 1. Risperdal 0.5 mg p.o. b.i.d. 2. Combigan 1 drop to the left eye, twice daily. 3. Bactrim 1 tablet p.o. b.i.d. 4. Multivitamin 1 tab p.o. daily. 5. Melatonin 3 mg at bedtime. 6. Vitamin D 1 cap p.o. daily. 7. Aspirin 81 mg p.o. daily. ALLERGIES: TETRACYCLINE. FAMILY HISTORY: reports no history of coronary artery disease, diabetes , or cancer within the family. SOCIAL HISTORY: She denies any tobacco. The patient does have occasional alcohol. Denies any illicit drug use. She is . She currently lives at [facility]. Surrogate decision maker is her . She is a DNR/DNI. MOLST form was completed and placed on the chart. REVIEW OF SYSTEMS: We are unable to obtain a review of systems due to the patient's mentation. The has reported fevers and generalized rash to her body. The patient says no when asked if she has chest pain or abdominal pain. PHYSICAL EXAMINATION GENERAL: At this time, Ms. Gomez is a 73-year-old female. She is confused, alert to self only. Resting on the stretcher in the emergency room. She does not appear to be in any acute distress. VITAL SIGNS: Temperature was 102.5, heart rate 106, respirations are 21, blood pressure 159/68. HEENT: Head is atraumatic and normocephalic. Eyes: EOMs are intact. Sclerae anicteric and not pale. Oral mucosa appear to be moist. Cheeks are flushed NECK: Supple. LUNGS: Clear to auscultation bilaterally. No wheezes, rales, or rhonchi. CARDIAC: S1 and S2. Regular rate and rhythm. No murmurs, rubs, or gallops. ABDOMEN: Soft and nontender. Bowel sounds are present x4. EXTREMITIES: She can move all 4 extremities. There is no clubbing or cyanosis. Pedal pulses are +2 bilaterally. NEUROLOGIC: She is alert to name. She is confused to situation and time. At baseline, she does have dementia. She does follow some commands. SKIN: She has a red, flat, blanchable rash noted to her torso, legs, neck; appears to be consistent with a drug reaction rash. LABORATORY DATA AND DIAGNOSTIC STUDIES: WBCs are 7.3, RBCs 3.70, hemoglobin 11.7, hematocrit was 34, platelet count was 174. INR was 1.14. Sodium 132, potassium 4.5, chloride 100, carbon dioxide was 26, anion gap 16, BUN was 13, creatinine 0.84, glucose was 120. Calcium 8.0, AST were 77, ALTs were 109, alkaline phosphatase 148. C-reactive protein was 28.21. Urine was within normal limits. Flu A and B were negative. Chest x-ray showed no acute cardiopulmonary disease. She had an electrocardiogram, which showed sinus rhythm at a rate of 91 with peak T-waves in V1, 2, and 3 consistent with prior EKG from 11/18/15. ASSESSMENT AND PLAN: Ms. Gomez is a 73-year-old female with dementia and glaucoma who presented to the emergency room with fever and rash, altered mental status. The patient will be admitted under observation for: 1. She meets SIRS criteria with fever, tachycardia. It is unclear of the cause of her fever at this time. The patient's chest x-ray is within normal limits. Her urinalysis is within normal limits. The patient did receive clindamycin in the emergency room. I suspect that this could be related to a drug fever and a reaction to the Bactrim. We will stop the Bactrim and this should be listed as an allergy. 2. The patient did have 500 cc output when a Olivo was placed. Her urinalysis was within normal limits. There is no source of infection to be causing her urinary retention. 3. Fever. The patient had a fever of 102.5 in the emergency room. She did meet SIRS criteria. I suspect that her fever is unclear of the cause of an infectious process at this time. Flu A and B are negative. Chest x-ray was negative. Urine was negative. I suspect that her fever could be related to a drug fever from Bactrim, as she does have a flat, red, blanchable rash noted to her body consistent with drug-reaction rash. I suspect this is related to Bactrim and Bactrim should be listed as an allergy. 4. Dementia. The patient should continue on her risperidone as previously prescribed. 5. Elevated liver functions. The patient does have elevated liver functions. I suspect this could be related to the recent use of Bactrim. We will repeat a CMP in the a.m. and continue to monitor. 6. FEN. The patient can have a regular diet. 7. Code status. She is a DNR/DNI. MOLST is on the chart. 8. DVT prophylaxis. I will place her on Lovenox subcu. 9. Disposition. She will be placed under observation on the medical floor. TIME SPENT: Time spent on this admission was approximately 60 minutes, greater than half that time was spent at the bedside reviewing the events leading thus far, performing my physical exam, and reviewing my plan of care with the family. I have discussed with my attending, Dr. Jacki Fuentes, she is in agreement with my plan. SUGAR DENNIS, CAR COUPLER [id number]/[facility] #: [id number] PRASHANT
[2018-10-23 06:50] LABS: ABS Monocytes 0.3 10^3/ul (0-0.8); ABS Neutrophils 4.5 10^3/ul (1.5-7.7); Hematocrit 33 % (35-47); Hemoglobin 11.6 g/dL (12.0-16.0); Lymphocyte % 16.6 %; Mean Corpuscular HGB Conc 35 g/dL (31-36); Mean Corpuscular Hemoglobin 31 pg (27-31); Mean Corpuscular Volume 91 fL (80-97); Mean Platelet Volume 7.1 fL (7.4-10.4); Nucleated Red Blood Cells % 0.1; Platelet Count 177 10^3/uL (150-450); Red Cell Distribution Width 14 % (10.5-15); White Blood Count 5.7 10^3/uL (3.5-10.8)
[2018-10-23 07:06] LABS: Albumin 3.2 g/dL (3.2-5.2); Albumin/Globulin Ratio 1.3 (1-3); BUN/Creatinine Ratio 21.4 (8-20); Calcium 8.3 mg/dL (8.6-10.3); EGFR Non-African American 81.8 (>60); Globulin 2.5 g/dL (2-4); Potassium 4.4 mmol/L (3.5-5.0); Total Bilirubin 0.5 mg/dL (0.2-1.0); Total Protein 5.7 g/dL (6.4-8.9)
--- NOTE | 2018-10-23 10:49 | PN ---
Subjective Date of Service: 10/23/18 Interval History: Pt is feeling well. She is pleasantly confused and unable to participate in a meaningful conversation. Objective Active Medications: Acetaminophen (Tylenol Adult Liq*) 650 mg PO Q4H PRN PRN Reason: FEVER/PAIN Aspirin (Aspirin Ec Tab*) 81 mg PO DAILY [facility] Brimonidine/Timolol (Combigan Ophth (Nf)) 1 drop LEFT EYE BID [facility]; Protocol Last Admin: 10/22/18 21:02 Dose: Not Given Enoxaparin Sodium (Lovenox(*)) 30 mg SUBCUT Q24H [facility] Last Admin: 10/22/18 14:46 Dose: 30 mg Melatonin (Melatonin) 3 mg PO BEDTIME [facility] Last Admin: 10/22/18 21:04 Dose: 3 mg Multivitamins (Theragran Tab*) 1 tab PO DAILY [facility] Risperidone (Risperdal) 0.5 mg PO BID [facility] Last Admin: 10/22/18 21:04 Dose: 0.5 mg Vital Signs - 8 hr 10/23/18 10/23/18 02:52 07:34 Temperature 97.4 F 97.9 F Pulse Rate 87 91 Respiratory 20 16 Rate Blood Pressure 112/61 119/50 (mmHg) O2 Sat by Pulse 96 100 Oximetry Oxygen Devices in Use Now: None Appearance: Elderly female sitting up in bed, NAD Eyes: No Scleral Icterus Ears/Nose/Mouth/Throat: Mucous Membranes Moist Respiratory: Symmetrical Chest Expansion and Respiratory Effort, Clear to Auscultation Cardiovascular: NL Sounds; No Murmurs; No JVD, RRR, No Edema Abdominal: NL Sounds; No Tenderness; No Distention Extremities: No Clubbing, Cyanosis Skin: No Nodules or Sclerosis, - - scabbed over laceration to lower left leg, erythematous maculopapular rash noted most on patient's back Neurological: - - alert, confused Result Diagrams: 10/23/18 06:31 10/23/18 06:31 Microbiology and Other Data: Microbiology 10/22/18 09:35 Aerobic Blood Culture - Preliminary Blood Venous No Growth Day 1 Anaerobic Blood Culture - Preliminary No Growth Day 1 10/22/18 09:29 Aerobic Blood Culture - Preliminary Blood Venous No Growth Day 1 Anaerobic Blood Culture - Preliminary No Growth Day 1 Assess/Plan/Problems-Billing Ms Gomez is a 73yo F who has a h/o advanced dementia who presented to the ER with c/o fever and increased confusion above baseline. - Patient Problems (1) Fever Current Visit: Yes Status: Acute Code(s): R50.9 - FEVER, UNSPECIFIED SNOMED Code(s): 796676576 Comment: Fever of 102.5 on admission. I suspect this is secondary to drug fever. I do not believe there is any cellulitis surrounding the L leg laceration. No evidence of UTI. Bactrim is a known culprit for drug fever. Bactrim has been stopped. Monitor for further fever. (2) Rash Current Visit: Yes Status: Acute Code(s): R21 - RASH AND OTHER NONSPECIFIC SKIN ERUPTION SNOMED Code(s): 793298000 Comment: Likely drug reaction from Bactrim. Monitor. (3) Altered mental status Current Visit: Yes Status: Acute Code(s): R41.82 - ALTERED MENTAL STATUS, UNSPECIFIED SNOMED Code(s): 140312435 Comment: I suspect the patient's increased confusion on admission is likely secondary to fever in the setting of advanced dementia. She was interactive today and while confused attempted to have a conversation. (4) Dementia Current Visit: Yes Status: Acute Code(s): F03.90 - UNSPECIFIED DEMENTIA WITHOUT BEHAVIORAL DISTURBANCE SNOMED Code(s): 89042635 Comment: Advanced at baseline. Continue to monitor. Likely back to [place] tomorrow. (5) DVT prophylaxis Current Visit: Yes Status: Acute Code(s): Z29.9 - ENCOUNTER FOR PROPHYLACTIC MEASURES, UNSPECIFIED SNOMED Code(s): 310038775 Comment: lovenox (6) DNR (do not resuscitate) Current Visit: Yes Status: Acute
[2018-10-23] MEDS: Aspirin EC TAB* 81 MG TAB.EC PO SCH (11:19)
[2018-10-23] MEDS: Vitamin THERAPEUTIC TAB PO SCH (11:19)
[2018-10-23] MEDS: Brimonidine/Timolol 0.2%/0.5% OPTH(NF) SOL 5 ML LEFT EYE SCH ×2 (11:19→20:45)
[2018-10-23] MEDS: Enoxaparin(*) 30 MG/0.3 ML SYR SUBCUT SCH (12:45)
[2018-10-23] MEDS: Melatonin 3 MG TAB PO SCH (20:46)
[2018-10-24] MEDS: Aspirin EC TAB* 81 MG TAB.EC PO SCH (09:47)
[2018-10-24] MEDS: Vitamin THERAPEUTIC TAB PO SCH (09:47)
[2018-10-24] MEDS: Brimonidine/Timolol 0.2%/0.5% OPTH(NF) SOL 5 ML LEFT EYE SCH (09:48)
[2018-10-24 12:28] VITALS: BP 113/45
[2018-10-24] MEDS: Enoxaparin(*) 30 MG/0.3 ML SYR SUBCUT SCH (13:11)
--- NOTE | 2018-10-24 21:20 | DS ---
CC: Dr. Lloyd * DISCHARGE SUMMARY: DATE OF ADMISSION: 10/23/18 DATE OF DISCHARGE: 10/24/18 PRIMARY CARE PROVIDER: Dr. Lloyd. PRINCIPAL DIAGNOSIS: Drug fever and rash. SECONDARY DIAGNOSIS: Advanced dementia. DISCHARGE MEDICATIONS: 1. Risperdal 0.5 mg p.o. b.i.d. 2. Combigan 1 drop in both eyes twice daily. 3. Multivitamin 1 tab p.o. daily. 4. Melatonin 3 mg p.o. q.h.s. 5. Calcium plus D 1 cap p.o. daily. 6. Aspirin 81 mg p.o. daily. HOSPITAL COURSE: Ms. Gomez is a 73-year-old female who has a history of advanced dementia and was at [place] and was brought to the emergency room for concerns of fever, lethargy, and rash. The patient had been started on Bactrim approximately 1 week prior for concerns with cellulitis surrounding a left lower extremity laceration. It was felt on admission that the patient's fever and rash were likely secondary to a Bactrim allergy. The Bactrim was withheld. Her rash was slightly better today. She is no longer febrile. In terms of the increased lethargy that her had noted, this appears to have resolved. The patient is now alert. She is still very confused; however, she is able to participate in a conversation, though it does not make much sense. She has ambulated twice around the unit without any difficulty. At this point, the patient is felt to be stable for discharge back to [place]. On the day of discharge, the patient is awake. She is alert. She is not oriented. Cardiac exam reveals a normal S1, S2 with a regular rate and rhythm. Her lungs are clear. Her abdomen is soft, nontender, nondistended. She moves all 4 extremities. She walks with a steady gait. There is a laceration to the distal left lower extremity. There are no sutures in place. There are no signs of erythema surrounding this. The wound is somewhat gaped open. FOLLOWUP CONCERNS: The patient is being discharged back to [place] today, . Activity level is as tolerated. Diet is regular. CONDITION ON DISCHARGE: Stable. TIME SPENT: 25 minutes was spent discharging this patient. [id number]/[facility] #: [id number] [facility]
== END 2018-10-24 15:30 | disposition home or self-care (01) | DRG 864 ==
LOC: ED 09:02 → MED 12:48 → OBSVTOIN 10-23 16:00
PROVIDERS: ADMIT Internal Medicine; ATTEND Hospitalist
PROC: 0T9B70Z Drainage of Bladder with Drainage Device, Via Natural or Artificial Opening (ICD-10-PCS; principal; 2018-10-23)
DX: R50.2 Drug induced fever (principal); R65.10 Systemic inflammatory response syndrome (SIRS) of non-infectious origin without acute organ dysfunction; L27.0 Generalized skin eruption due to drugs and medicaments taken internally; F03.90 Unspecified dementia, unspecified severity, without behavioral disturbance, psychotic disturbance, mood disturbance, and anxiety; R40.2352 Coma scale, best motor response, localizes pain, at arrival to emergency department; R40.2142 Coma scale, eyes open, spontaneous, at arrival to emergency department; R40.2242 Coma scale, best verbal response, confused conversation, at arrival to emergency department; T36.8X5A Adverse effect of other systemic antibiotics, initial encounter; H40.9 Unspecified glaucoma; Z66 Do not resuscitate; R94.5 Abnormal results of liver function studies; R50.9 Fever, unspecified; Z79.82 Long term (current) use of aspirin; Z88.1 Allergy status to other antibiotic agents; Z85.820 Personal history of malignant melanoma of skin; Z98.42 Cataract extraction status, left eye; Z98.41 Cataract extraction status, right eye; Y92.9 Unspecified place or not applicable; Z86.14 Personal history of Methicillin resistant Staphylococcus aureus infection
CPT/HCPCS: 36415; 71045; 80053; 81003; 83605; 84484; 85025; 85610; 85730; 86140; 87040; 93005; 99285; A9270-GY; G0378; J0696; J1650

== ENCOUNTER 2018-11-14 10:51 | Emergency (ER) | payer MEDICARE, BC ==
--- OUTSIDE RECORDS SUMMARY | 2018-11-14 11:24 | XMS REPORT | Continuity of Care Document ---
:1945 External Reference #:[id number] Author Name Juan Neil M.D., R.D. Address [address] [place] [address] Care Team Providers Name Role Phone Juan Neil M.D., RIbanDIban Care Team Information Manager Transfer Unavailable Payers Date Identification Numbers Payment Provider Subscriber Effective: 2016 Policy Number: [id number] Medicare - Bswny d Marguerite Major Jason PayID: [id number] [address] [place] [address] Effective: 2004 Policy Number: [facility](Josefina Gomez [id number] Group Name: Noé [address] PayID: [id number] [place] [address] Advance Directives Type Date Description Status Comment [...] Tetracyclin Hives After Treated For Pneumonia 08/15/2005 Bactrim 10/28/2018 Medications Active Medications SIG Qnty Indications Ordering Date Provider Risperidone 1 By Mouth Twice A 30tabs Juan Neil, 11/05/2018 0.5mg Day M.D., R.D. Tablets Cephalexin 1 by mouth three 21caps L03.116 Shawnti R. 10/28/2018 500mg times a day ZEKE [place] Capsules Melatonin 1 by mouth every 90tabs Juan Neil, 07/01/2018 3mg Tablets night at bedtime as M.Major., R.D. needed sleep Alprazolam Discontinue 1tabs Juan Neil, 06/08/2018 0.5mg Medication M.DIban, R.D. Tablets Benadryl Allergy Discontinue 1caps Juan Neil, 05/30/2018 25mg Medication M.DIban, R.D. Capsules Calcium + D3 take one tablet by 90tabs Juan Neil, 05/30/2018 mouth qd M.D., R.D. [id number] Tablets Aspir-81 take one tablet by 90tabs Juan Neil, 03/27/2012 81mg Tablets mouth daily Tiana R.Jennifer Kaiser 1 po qd 90caps Juan Neil, 05/24/2011 Capsules Giuseppe Montiel Combigan bid With DR. Gerardo Brunson 02/03/2008 0.2/0.5% for left eye BlegenTiana Solution History Medications Risperdal 1 by mouth twice 30tabs Juan Neil, 06/17/2018 - 0.5mg Tablets a day Tiana, R.DIban 11/05/2018 Alprazolam take one by mouth 30tabs Juan Neil, 11/09/2017 - 0.25mg once daily as Tiana R.DIban 06/08/2018 Tablets needed for anxiety Melatonin Juan Neil, 05/26/2015 - Capsules Tiana R.DIban 05/21/2017 Calcium + D3 take one tablet Juan Neil, 04/23/2014 - Tablets by mouth bid Tiana, R.DIban 05/30/2018 Nystatin apply to affected 30gm Juan Neil, 07/16/2013 - 311169Atla/GM area bid - tid Tiana, R.DIban 04/23/2014 Cream prn Satnam Mag Zinc 1 po qd Juan Neil, 04/21/2013 - Tablets Tiana, R.D. 04/23/2014 Benadryl take one tablet Juan Neil, 04/21/2013 - 25mg Capsules by mouth at Tiana, R.DIban 05/30/2018 bedtime as needed for allergies Amoxicillin 1 po bid for 20tabs 461.8 Shawnti R. 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 04/08/2013 Valtrex 1 po tid for 10 [...] 1 po qd Juan Neil, 05/12/2012 - MTanvi, R.D. 04/21/2013 [id number] Tablets Vitamin B-12 1 po qd Juan Neil, 05/12/2012 - 500mcg Tiana, R.D. 04/21/2013 Tablets Sub Vitamin D-3 1pill qd Juan Neil, 05/12/2012 - 400Unit Tiana, R.D. 04/21/2013 Tablets Metamucil Juan Neil, 03/27/2012 - Powder M.Jennifer, R.D. 04/23/2014 Vitamin B-12 1 po qd Juan Neil, 03/27/2012 - 1000mcg Tiana, R.D. 05/12/2012 Tablets Sub Fluticasone instill 2 sprays 1units 995.3 Juan Neil, 01/11/2012 - Propionate into each nostril Tiana, R.D. 03/27/2012 50mcg/Act once daily Suspension Potassium Gluconate 595 mg qd Juan Neil, 05/24/2011 - M.Jennifer, R.D. 04/23/2013 Tablets Vitamin D 1 po qd Juan Neil, 05/24/2011 - 1000Unit Tiana, R.D. 04/21/2013 Capsules Simvastatin Take One Tablet 90tabs 272.2 Juan Neil, 10/06/2009 - 10mg By Mouth AT M.DIban, R.D. 04/23/2014 Tablets Bedtime Penlac Nail Lacquer use as directed 1units Jocelynn Brunson 02/03/2008 - 8% qd to affected Blegen, Tiana 05/24/2011 Solution toenails- remove with alcohol wipe qweek Omeprazole One Pill By Mouth 30caps Davdiwbassemi R. 02/05/2007 - 20mg Daily Before Storm, LIDAR TECHNICIAN-C 09/10/2007 Capsules First Meal Of The Day Cod Liver Oil Jocelynn Brunson 01/31/2007 - Capsules Blegen, M.DIban 05/24/2011 Keflex one po bid for 10 20tabs Lizette A. 08/25/2006 - 500mg Tablets days Marcelino, 03/31/2009 [facility] Augmentin One PO bid For 20tabs 461.9 Rex Elliott M.D. 10/11/2005 - 875mg;125 mg 10 Days 10/31/2005 Tablets Amoxicillin 2 PO bid X 10 40caps Jocelynn rBunson 08/24/2005 - 500mg Days Parvin Mccormick.DIban 10/31/2005 Capsules Fish Oil Jocelynn Brunson 08/15/2005 - Caps Rebecca MccormickDIban 01/31/2007 Aspirin 1 po qd Jocelynn Brunson 08/15/2005 - 325mg Tablets Parvin Mccormick.DIban 03/31/2009 Glucosamine And 1350 mg bid Juan Neil, 08/15/2005 - Chondroitin M.Jennifer, R.D. 04/21/2013 Tablets Gingko Biloba Jocelynn Brunson 08/15/2005 - Caplets Rebecca MccormickDIban 05/24/2011 Potassium Chloride Jocelynn Brunson 08/15/2005 - Anny M.DIbna 05/24/2011 Capsules Premarin Vaginal use up to twice 42.5G Jocelynn Brunson 08/15/2005 - weekly as Blegen, M.DIban 03/31/2009 0.625mg/GM Cream directed Calcium Citrate 1-2 [...] With Codeine one to two tabs 60tabs Jocelynn Nannette 02/24/2002 - #3 q4-6h prn pain Blegen, M.D. 05/24/2011 Tablets Medications Administered in Office Medication SIG Qnty Indications Ordering Provider Date TB,Intradermal (PPD, [place]) [facility] 05/27/2018 Injection Immunizations CPT Code Status Date Vaccine Lot # [id number] Given 05/13/2018 Influenza Vaccine High Dose PF [id number] 63855 Given 02/08/2016 Influenza Vaccine High Dose PF [id number] 72846 Given 03/10/2015 Influenza Vaccine High Dose PF [id number] 61851 Given 07/09/2014 Prevnar-13 Pneumococcal Conjugate Vaccine [id number] 01814 Given 03/19/2014 Influenza Vaccine High Dose PF [id number] 55572 Given 03/20/2013 Influenza Vaccine High Dose PF [id number] 33397 Given 03/20/2012 Influenza Vaccine High Dose PF [id number] 25945 Given 04/12/2011 Influenza Vaccine-Preservative Free 3 Yrs And [id number] Above 91672 Given 04/06/2010 Influenza Vaccine-Preservative Free 3 Yrs And [id number] Above 93933 Given 05/25/2009 H1N1 Influenza Vaccine [id number] 08023 Given 05/25/2009 H1N1 Immunization Administration, Including Counseling 91754 Given 03/31/2009 Pneumovax 23 (PPSV23) 65+ years or high risk 2 to [id number] 64 year old 96630 Given 03/31/2009 Influenza Vaccine-Preservative Free 3 Yrs And [id number] Above 66532 Given 05/26/2008 Zoster Vaccine [id number] 49091 Given 03/11/2008 Influenza Virus Vaccine, 3 Yrs And Above [id number] 45238 Given 03/29/2007 Influenza Virus Vaccine, 3 Yrs And Above [id number] 71293 Given 08/15/2005 Tdap (Adacel) [id number] 12379 Given 03/28/2005 Influenza Virus Vaccine, 3 Yrs And Above 99309 Given 04/01/2003 Influenza Virus Vaccine, 3 Yrs And Above 22858 Given 04/01/2003 Influenza Virus Vaccine, 3 Yrs And Above 95433 Given 2002 Influenza Virus Vaccine, 3 Yrs And Above 48597 Given 04/15/2001 Influenza Virus Vaccine, 3 Yrs And Above 15780 Given 04/01/1999 Influenza Virus Vaccine, 3 Yrs And Above 34411 Given 04/08/1998 Influenza Virus Vaccine 42099 Given 03/11/1997 Influenza Virus Vaccine 77514 Given 08/06/1996 Tetanus 28524 Given 03/21/1996 Influenza Virus Vaccine 87250 Given 03/19/1995 Influenza Virus Vaccine 32946 Given 03/09/1994 Influenza Virus Vaccine 17560 Given 03/23/1993 Influenza Virus Vaccine Vital Signs Date Vital Result Comment 10/30/2018 3:01pm Weight 122.00 lb Weight 55.339 kg BP Systolic 110 mmHg BP Diastolic 70 mmHg Heart Rate 88 /min Body Temperature 98.8 F Respiratory Rate 16 /min 10/16/2018 3:54pm Weight 118.00 lb Weight 53.525 kg BP Systolic 138 mmHg BP Diastolic 76 mmHg Heart Rate 84 /min Body Temperature 98.5 F Respiratory Rate 18 /min 05/13/2018 9:23am Weight 98.00 lb Weight 44.453 [...] Date Facility Test Result H/L Range Note Laboratory test 10/22/2018 [facility] Lactic Acid 1.3 mmol/L N 0.5-2.0 1 finding [phone] Laboratory test 10/22/2018 [facility] Lactic Acid 1.4 mmol/L N 0.5-2.0 2 finding [phone] Inr/Protime 10/22/2018 [facility] Inr 1.14 High 0.82-1.09 3 [phone] Laboratory test 10/22/2018 [facility] Partial 26.4 seconds N 26.0-36.3 finding [phone] Thrombo Time PTT Troponin-I (TnI) 0.01 ng/mL <0.04 4 Comp Metabolic 10/22/2018 [facility] Sodium 132 mmol/ L Low 135-145 Panel [phone] Potassium 4.5 mmol/L N 3.5-5.0 Chloride 100 mmol/L Low 101-111 Co2 Carbon Dioxide 26 mmol/L N 22-32 Anion Gap 6 mmol/L N 2-11 Glucose 120 mg/dL High 70-100 Blood Urea Nitrogen 13 mg/dL N 6-24 Creatinine 0.84 mg/dL N 0.51-0.95 BUN/Creatinine Ratio 15.5 N 8-20 Calcium 8.0 mg/dL Low 8.6-10.3 Total Protein 5.7 g/dL Low 6.4-8.9 Albumin 3.2 g/dL N 3.2-5.2 Globulin 2.5 g/dL N 2-4 Albumin/Globulin Ratio 1.3 N 1-3 Total Bilirubin 0.50 mg/dL N 0.2-1.0 Alkaline Phosphatase 148 U/L High 34-104 Alt 109 U/L High 7-52 Ast 77 U/L High 13-39 Egfr Non- 66.3 >60 Egfr 80.2 >60 5 Laboratory test 10/22/2018 [facility] C Reactive 28.21 mg/L High <8.01 finding [phone] Protein CBC Auto Diff 10/22/2018 [facility] White Blood 7.3 N 3.5-10.8 [phone] Count 10^3/uL Red Blood Count 3.70 10^6/uL N 3.70-4.87 Hemoglobin 11.7 g/dL Low 12.0-16.0 Hematocrit 34 % Low 35-47 Mean Corpuscular Volume 91 fL N 80-97 Mean Corpuscular Hemoglobin 32 pg High 27-31 Mean Corpuscular HGB Conc 35 g/dL N 31-36 Red Cell Distribution Width 14 % N 10.5-15 Platelet Count 174 10^3/uL N 150-450 Mean Platelet Volume 7.0 fL Low 7.4-10.4 Abs Neutrophils 6.0 10^3/uL N 1.5-7.7 Abs Lymphocytes 0.7 10^3/uL Low 1.0-4.8 Abs Monocytes 0.6 10^3/uL N 0-0.8 Abs Eosinophils 0.0 10^3/uL N 0-0.6 Abs Basophils 0.0 10^3/uL N 0-0.2 Abs Nucleated RBC 0.0 10^3/uL Granulocyte % 81.6 % Lymphocyte % 10.0 % Monocyte % 8.1 % Eosinophil % 0.0 % Basophil % 0.3 % Nucleated Red Blood Cells % 0.1 Urinalysis Profile 10/22/2018 [facility] Urine Color Yellow [phone] Urine Appearance Clear Urine Specific [place] 1.018 N 1.010-1.030 Urine pH 6.0 N 5-9 Urine Urobilinogen Negative Negative Urine Ketones Negative Negative Urine Protein Negative Negative Urine Leukocytes Negative Negative Urine Blood Negative Negative * * Abnormal Negative 6 Urine Nitrite Negative Negative Urine Bilirubin Negative Negative Urine Glucose Negative Negative Influenza A & B 10/22/2018 [facility] Influenza A NEGATIVE Negative 7 Request [phone] Molecular Influenza B Molecular NEGATIVE Negative Laboratory test 10/22/2018 [facility] Blood Culture SEE RESULT 8 finding [phone] BELOW Laboratory test 10/14/2018 [facility] Blood Culture SEE RESULT 9 finding [phone] BELOW Urinalysis Profile 10/14/2018 [facility] Urine Color Straw [phone] Urine Appearance Clear Urine Specific [place] 1.009 Low 1.010-1.030 Urine pH 7.0 N 5-9 Urine Urobilinogen Negative Negative Urine Ketones Negative Negative Urine Protein Negative Negative Urine Leukocytes Negative Negative Urine Blood Negative Negative * * Abnormal Negative 10 Urine Nitrite Negative Negative Urine Bilirubin Negative Negative Urine Glucose Negative Negative Laboratory test 10/14/2018 [facility] Partial 28.3 seconds N 26.0-36.3 finding [phone] Thrombo Time PTT Inr/Protime 10/14/2018 [facility] Inr 0.96 N 0.82- 1.09 11 [phone] CBC Auto Diff 10/14/2018 [facility] White Blood 6.8 10^3/uL N 3.5-10.8 [phone] Count Red Blood Count 4.02 10^6/uL N 3.70-4.87 Hemoglobin 12.9 g/dL N 12.0-16.0 Hematocrit 37 % N 35-47 Mean Corpuscular Volume 92 fL N 80-97 Mean Corpuscular Hemoglobin 32 pg High 27-31 Mean Corpuscular HGB Conc 35 g/dL N 31-36 Red Cell Distribution Width 13 % N 10.5-15 Platelet Count 240 10^3/uL N 150-450 Mean Platelet Volume 6.8 fL Low 7.4-10.4 Abs Neutrophils 4.1 10^3/uL N 1.5-7.7 Abs Lymphocytes 1.2 10^3/uL N 1.0-4.8 Abs Monocytes 1.1 10^3/uL High 0-0.8 Abs Eosinophils 0.3 10^3/uL N 0-0.6 Abs Basophils 0.1 10^3/uL N 0-0.2 Abs Nucleated RBC 0.0 10^3/uL Granulocyte % 59.7 % Lymphocyte % 17.7 % Monocyte % 16.7 % Eosinophil % 5.0 % Basophil % 0.9 % Nucleated Red Blood Cells % 0.0 Laboratory test 10/14/2018 [facility] C Reactive 13.26 mg/L High <8.01 finding [phone] Protein Comp Metabolic 10/14/2018 [facility] Sodium 137 mmol/ L N 135-145 Panel [phone] Potassium 4.1 mmol/L N 3.5-5.0 Chloride 102 mmol/L N 101-111 Co2 Carbon Dioxide 28 mmol/L N 22-32 Anion Gap 7 mmol/L N 2-11 Glucose 97 mg/dL N 70-100 Blood Urea Nitrogen 18 mg/dL N 6-24 Creatinine 0.63 mg/dL N 0.51-0.95 BUN/Creatinine Ratio 28.6 High 8-20 Calcium 9.2 mg/dL N 8.6-10.3 Total Protein 7.0 g/dL N 6.4-8.9 Albumin 4.0 g/dL N 3.2-5.2 Globulin 3.0 g/dL N 2-4 Albumin/Globulin Ratio 1.3 N 1-3 Total Bilirubin 0.30 mg/dL N 0.2-1.0 Alkaline Phosphatase 135 U/L High 34-104 Alt 53 U/L High 7-52 Ast 34 U/L N 13-39 Egfr Non- 92.4 >60 Egfr 111.8 >60 12 Laboratory test 10/14/2018 [facility] Lactic Acid 1.3 mmol/L N 0.5-2.0 13 finding [phone] Comp Metabolic 01/08/2017 [facility] Sodium 140 mmol/ L N 133-145 Panel [phone] Potassium 5.1 mmol/L High 3.5-5.0 Chloride 103 [...] 72.6 N >60 Egfr 93.4 N >60 14 Laboratory test 01/08/2017 [facility] Vitamin B12 334 pg/mL N 180-914 15 finding [phone] TSH (Thyroid Stim Horm) 1.83 mcIU/mL N 0.34-5.60 16 Syphillis Igg W/Reflex RPR Nonreactive N Nonreactive 17 Laboratory test 05/19/2016 [facility] Vitamin B12 303 pg/mL N 180-914 18 finding [phone] TSH (Thyroid Stim Horm) 2.15 mcIU/mL N 0.34-5.60 19 Syphillis Igg W/Reflex RPR Nonreactive N Nonreactive 20 CBC Auto 11/28/2015 [facility] White Blood 11.1 10^3/ uL High 3.5-10.8 Diff [phone] Count Red Blood Count 4.39 10^6/uL N [...] Cells % 0 N Laboratory test 11/28/2015 [facility] Lactic Acid 1.5 mmol/L N 0.5-2.0 21 finding [phone] Urinalysis 11/28/2015 [facility] Urine Color Yellow N Profile [phone] Urine Appearance Clear N Urine Specific [place] 1.013 N 1.010-1.030 Urine pH 5.0 N 5-9 Urine Urobilinogen Negative N Negative Urine Ketones Trace Abnormal Negative Urine Protein Negative N Negative Urine Leukocytes Negative N Negative Urine Blood Negative N Negative * * Abnormal Negative 22 Urine Nitrite Negative N Negative Urine Bilirubin Negative N Negative Urine Glucose Negative N Negative Comp Metabolic Panel 11/28/2015 [facility] Sodium 139 mmol/L N 133-145 [phone] Potassium 3.9 mmol/L N 3.5-5.0 Chloride 105 [...] 78.6 N >60 Egfr 101.1 N >60 23 Laboratory test 11/28/2015 [facility] Magnesium 2.1 mg/dL N 1.9-2.7 finding [phone] Troponin I 0.00 ng/mL N <0.03 24 TSH (Thyroid Stimulating Horm) 2.34 ?IU/mL N 0.34-5.60 Lipid Profile 05/26/2015 [facility] Triglycerides 156 mg/dL N 25 (Trig/Chol/HDL) [phone] Cholesterol 214 mg/dL N 26 HDL Cholesterol 55.5 mg/dL N 27 LDL Cholesterol 127 mg/dL N 28 Comp Metabolic Panel 05/26/2015 [facility] Sodium 139 mmol/L N 133-145 [phone] Potassium 3.9 mmol/L N 3.5-5.0 Chloride 102 [...] 71.7 N >60 Egfr 92.3 N >60 29 Urine DIP 05/26/2015 [facility] Leukocytes neg Neg (607)- - Urine Nitrites neg Neg Urobilinogen norm Norm Total Protein, Urine neg Neg Urine pH 5 5-6 Urine Blood neg Neg Specific [place] 1.020 1.01-1.02 Urine Ketones neg Neg Urine Bilirubin neg Neg Urine Glucose norm Norm CBC Auto Diff 04/16/2014 [facility] White Blood 6.6 10^3/uL N 4.8-10.8 [phone] Count Red Blood Count 4.67 10^6/uL N [...] Cells % 0 N Lipid Profile 04/16/2014 [facility] Triglycerides 92 mg/dL N 30 (Trig/Chol/HDL) [phone] Cholesterol 263 mg/dL N 31 HDL Cholesterol 60.9 mg/dL N 32 LDL Cholesterol 184 mg/dL N 33 Comp Metabolic Panel 04/16/2014 [facility] Sodium 140 mmol/L N 133-145 [phone] Potassium 4.6 mmol/L N 3.5-5.0 34 Chloride 104 mmol/L N 101-111 Co2 Carbon [...] 71.9 N >60 Egfr 92.5 N >60 35 Comp Metabolic Panel 04/21/2013 [facility] Sodium 137 mmol/L 133-145 [phone] Potassium 4.1 mmol/L 3.5-5.0 Chloride 100 mmol/L [...] Egfr Non- 83.0 >60 Egfr 106.7 >60 36 Laboratory test 04/21/2013 [facility] Creatine Kinase 54 U/L 0-200 37 finding [phone] Lipid Profile 04/21/2013 [facility] Triglycerides 48 mg/dL 40-200 (Trig/Chol/HDL) [phone] Cholesterol 203 mg/dL High Less than 200 HDL Cholesterol 63 mg/dL High 40-60 38 Cholesterol/HDL Ratio 3.2 Average 1-4.44 LDL Cholesterol 130.4 High Less Than 100 39 CBC With 04/21/2013 [facility] White Blood 8.5 10^3/ uL 4.8-10.8 Manual Diff [phone] Count Red Blood Count 4.47 10^6/uL 4.0-5.4 [...] RBC Morphology Normal Normal Laboratory test 04/21/2013 [facility] Vitamin B12 656 pg/mL 180-914 40 finding [phone] Urine DIP 04/21/2013 [facility] House [facility] Leukocytes neg Neg (607)- - Urine Nitrites negd Neg Urine pH 8 High 5-6 Total Protein, Urine neg Neg Urine Glucose norm Norm Urine Ketones neg Neg Urobilinogen norm Norm Urine Bilirubin neg Neg Urine Blood neg Neg Specific [place] 1.015 1.01-1.02 Laboratory test 01/13/2013 [facility] Blood Urea 15 mg/dL 6-24 finding [phone] Nitrogen Creatinine 01/13/2013 [facility] Creatinine 0.70 mg/ dL 0.50-1.40 [phone] Egfr Non- 83.2 >60 Egfr 107.0 >60 41 Vitamin D, 25 04/25/2012 [facility] 25-Hydroxy Vitamin <4.0 ng/mL Hydroxy [phone] D2 25-Hydroxy Vitamin D3 38 ng/mL 25-Hydroxy Vitamin D Total 38 ng/mL 42 Urine DIP 03/27/2012 [facility] House Lab Leukocytes NEG Neg (607)- - Urine Nitrites NEG Neg Urine pH 5 5-6 Total Protein, Urine NEG Neg Urine Glucose NORM Norm Urine Ketones NEG Neg Urobilinogen NORM Norm Urine Bilirubin NEG Neg Urine Blood NEG Neg Specific [place] NA Low 1.01-1.02 Laboratory test 03/20/2012 [facility] Creatine 53 U/ L 0-200 43 finding [phone] Kinase Comp Metabolic 03/20/2012 [facility] Sodium 140 133-145 Panel [phone] mmol/L Potassium 4.2 mmol/L 3.5-5.0 Chloride 106 mmol/L 101-111 Co2 Carbon Dioxide 30.0 mmol/L 22-32 Anion Gap 4.0 mmol/L 2-11 Glucose 87 mg/dL 70-100 Blood Urea Nitrogen 11 mg/dL 6-24 Creatinine 0.70 mg/dL 0.50-1.40 BUN/Creatinine Ratio 15.7 8-20 Calcium 9.6 mg/dL 8.1-9.9 Total Protein 6.9 GM/DL 6.2-8.1 Albumin 4.5 GM/DL 3.2-5.2 Globulin 2.4 GM/DL 2-4 Albumin/Globulin Ratio 1.9 1-3 Total Bilirubin 0.8 mg/dL 0.1-1.0 44 Alkaline Phosphatase 88 U/L 30-110 Alt 24 U/L 14-54 Ast 26 U/L 12-42 Egfr Non- 83.5 >60 Egfr 107.3 >60 45 Lipid Profile 03/20/2012 [facility] Triglycerides 62 mg/dL 40-200 (Trig/Chol/HDL) [phone] Cholesterol 193 mg/dL Less than 200 46 HDL Cholesterol 60 mg/dL 40-60 47 Cholesterol/HDL Ratio 3.2 AVERAGE 1-4.44 LDL Cholesterol 120.6 mg/dL High Less Than 100 Laboratory test 03/20/2012 [facility] TSH (Thyroid 2.86 0.34-5.60 48 finding [phone] Stimulating MIU/ML Horm) Laboratory test 05/24/2011 [facility] TSH 2.00 0.34-5.60 finding [phone] MIU/ML Vitamin B12 485 pg/mL 180-914 Urine DIP 05/24/2011 [facility] Leukocytes NEG Neg (607)- - Urine Nitrites NEG Neg Urine pH 5-6 5-6 Total Protein, Urine NEG Neg Urine Glucose NORM Norm Urine Ketones NEG Neg Urobilinogen NORM Norm Urine Bilirubin NEG Neg Urine Blood NEG Neg Specific [place] N/A Low 1.01-1.02 Laboratory 05/24/2011 [facility] Cytology ----- 49 test finding [phone] <SEE NOTE> Lipid Panel 05/17/2011 [facility] Triglyceride 61 mg/ dL 40-2 [phone] Cholesterol 207 mg/dL High Less Than 200 50 High Density Lipoprotein 58 mg/dL 40-60 51 Cholesterol/HDL Ratio 3.57 AVERAGE 1-4.44 Low Density Lipoprotein 137 mg/dL High Less Than 100 52 Comprehensive 05/17/2011 [facility] Sodium 141 mmol/ L 135-145 Metabolic [phone] Potassium 4.5 mmol/L 3.5-5.0 Chloride 104 mmol/L 101-111 Co2 (Carbon Dioxide) 29.0 mmol/L 22-32 Anion Gap 8.0 mmol/L 2-11 53 Glucose 99 mg/dL 70-100 BUN 14 mg/dL 6-24 Creatinine 0.8 mg/dL 0.50-1.40 One Over Creatinine 1.25 BUN/Creatinine Ratio 17.5 8-20 Calcium 9.4 mg/dL 8.1-9.9 Total Protein 7.0 GM/DL 6.2-8.1 Albumin 4.6 GM/DL 3.2-5.2 Globulin 2.4 GM/DL 2-4 Albumin/Globulin Ratio 1.9 1-3 Bilirubin Total 0.7 mg/dL 0.4-1.5 54 Alkaline Phosphatase 71 U/L 30-110 Alt (SGPT) 21 U/L 14-54 Ast (Sgot) 26 U/L 12-42 eGFR Non- 71.5 > 60 eGFR 92.0 > 60 55 CBC No Diff 05/17/2011 [facility] White Blood 5.8 CUMM 4.8-10.8 [phone] Count Red Cell Count 4.40 CUMM 4.2-5.4 Hemoglobin 14.6 g/dL 12.0-16.0 Hematocrit 42 % 35-47 Mean Corpuscular Volume 96 um3 79-97 Mean Corpuscular Hemoglob 33 pg High 27-31 Mean Corpuscular HGB Cone 35 g/dL 32-36 Redcell Distribution WDTH 13 % 10.5-15 Platelet Count 220 CUMM 150-450 Mean Platelet Volume 8.4 um3 7.4-10.4 Laboratory test 05/17/2011 [facility] CPK (Creatine 78 U/L 0-170 finding [phone] Kinase) Laboratory test 05/25/2010 [facility] CPK (Creatine 53 U/L 0-170 finding [phone] Kinase) CBC With 05/25/2010 [facility] White Blood 5.8 CUMM 4.8-10.8 Electronic Diff [phone] Count Red Cell Count 4.28 CUMM 4.2-5.4 [...] Basophils 0 0-0.2 Comp Metabolic Panel 05/25/2010 [facility] Sodium 138 mmol/L 135-145 [phone] Potassium 4.3 mmol/L 3.5-5.0 Chloride 104 mmol/L 101-111 Co2 (Carbon Dioxide) 30.0 mmol/L 22-32 Anion Gap 4.0 mmol/L 2-11 56 Glucose 90 mg/dL 70-100 57 BUN 13 mg/dL 6-24 Creatinine 0.70 mg/dL 0.50-1.40 One Over Creatinine 1.40 BUN/Creatinine Ratio 18.6 8-20 Calcium 9.5 mg/dL 8.1-9.9 Total Protein 6.3 GM/DL 6.2-8.1 Albumin 4.2 GM/DL 3.2-5.2 Globulin 2.1 GM/DL 2-4 Albumin/Globulin Ratio 2.0 1-3 Bilirubin Total 0.8 mg/dL 0.4-1.5 58 Alkaline Phosphatase 67 U/L 30-110 Alt (SGPT) 29 U/L 14-54 Ast (Sgot) 25 U/L 12-42 eGFR Non- 89.0 > 60 eGFR 107.7 > 60 59 Lipid Profile 05/25/2010 [facility] Triglyceride 61 mg/dL 40-200 (Trig/Chol/HDL) [phone] Cholesterol 206 mg/dL High Less Than 200 60 High Density Lipoprotein 58 mg/dL 40-60 61 Cholesterol/HDL Ratio 3.55 AVERAGE 1-4.44 Low Density Lipoprotein 136 mg/dL High Less Than 100 62 Urine DIP 04/20/2010 [facility] House [facility] Leukocytes NEG Neg (607)- - Urine Nitrites NEG Neg Urine pH 8 High 5-6 Total Protein, Urine NEG Neg Urine Glucose NORM Norm Urine Ketones NEG Neg Urobilinogen NORM Norm Urine Bilirubin NEG Neg Urine Blood NEG Neg Specific [place] N/A Low 1.01-1.02 Laboratory test 04/20/2010 [facility] Thin Prep SEE NOTE 63 finding [phone] W/HPV(Lsil/JASON/Asc) Lipid Panel 11/17/2009 [facility] Cholesterol, Total 169 <200 [phone] mg/dL Triglycerides 41 mg/dL <150 HDL Cholesterol 63 mg/dL High 40-60 Chol/HDL Cholesterol 2.7 64 LDL Cholesterol, Calc. 98 mg/dL 65 LDL/HDL Cholesterol 1.6 66 Hepatic (Liver) 11/17/2009 [facility] Albumin 4.4 g/dL 3.5-4.7 Panel [phone] Protein, Total 6.7 g/dL 6.4-8.3 Alkaline Phosphatase 72 U/L 10-118 Sgot (Ast) 26 U/L 3-40 SGPT (Alt) 25 U/L 7-50 Bilirubin, Total 0.40 mg/dL 0.30-1.20 Bilirubin, Direct 0.13 mg/dL 0.00-0.40 Bilirubin, Indirect 0.27 mg/dL 0.10-1.10 Vaginal Culture 10/20/2009 [facility] Vaginal Culture Normal vaginal 67 [phone] <SEE NOTE> .Gram Stain Additional NO EPI, NO WBC, <SEE NOTE> 68 Vaginitis Dna 10/20/2009 [facility] Screen Trichomonas NEGATIVE Probe Screen [phone] Vaginalis Dna Screen Gardnerella Vaginalis Dna NEGATIVE Screen Laura Species Dna NEGATIVE Urine DIP 10/20/2009 [facility] Leukocytes NEG Neg (607)- - Urine Nitrites NEG Neg Urine pH 9 High 5-6 Total Protein, Urine NEG Neg Urine Glucose NORM Norm Urine Ketones NEG Neg Urobilinogen NORM Norm Urine Bilirubin NEG Neg Urine Blood NEG Neg Specific [place] N/A Low 1.01-1.02 Statin 09/23/2009 [facility] Sgot (Ast) 34 U/L 3-40 69 [phone] SGPT (Alt) 34 U/L 7-50 Lipid Panel 09/23/2009 [facility] Cholesterol, 245 mg/dL Abnormal <200 [phone] Total Triglycerides 59 mg/dL <150 HDL Cholesterol 62 mg/dL High 40-60 Chol/HDL Cholesterol 4.0 70 LDL Cholesterol, Calc. 171 mg/dL Abnormal 71 LDL/HDL Cholesterol 2.8 72 Laboratory test 09/23/2009 [facility] Glucose, 97 mg/dL 70-100 finding [phone] Fasting Hemoccult 03/31/2009 [facility] House [facility] Stool-Occult neg 03/25 Neg (607)- - Blood #1 Stool-Occult Blood #2 neg 03/26 Neg Stool-Occult Blood #3 neg 03/27 Neg Urine DIP 03/31/2009 In House Lab Leukocytes neg Neg (607)- - Urine Nitrites neg Neg Urine pH 5 5-6 Total Protein, Urine neg Neg Urine Glucose norm Norm Urine Ketones neg Neg Urobilinogen norm Norm Urine Bilirubin neg Neg Urine Blood neg Neg Specific [place] na Low 1.01-1.02 Laboratory 03/31/2009 [facility] Thin Prep SEE 73 test finding [phone] W/HPV(Lsil/JASON/Asc) NOTE GFR 03/25/2009 [facility] GFR (Calculated) >60 74 Calculated [phone] Lipid Panel 03/25/2009 [facility] Cholesterol, Total 233 Abnormal <2 [phone] mg/dL 00 Triglycerides 63 mg/dL <150 HDL Cholesterol 51 mg/dL 40-60 Chol/HDL Cholesterol 4.6 75 LDL Cholesterol, Calc. 169 mg/dL Abnormal 76 LDL/HDL Cholesterol 3.3 77 Comprehensive 03/25/2009 [facility] Glucose 106 mg/dL High 70-100 Metabolic [phone] BUN 16 mg/dL 4-18 Creatinine, Serum 0.70 mg/dL 0.50-1.10 Sodium 143 mmol/L 136-146 Potassium 4.7 mmol/L 3.5-5.3 Chloride 106 mmol/L 98-110 Carbon Dioxide 28 mmol/L 20-32 Albumin 4.1 g/dL 3.5-4.7 Protein, Total 6.5 g/dL 6.4-8.3 Calcium 9.0 mg/dL 8.4-10.4 Alkaline Phosphatase 77 U/L 10-118 Sgot (Ast) 29 U/L 3-40 SGPT (Alt) 28 U/L 7-50 Bilirubin, Total 0.30 mg/dL 0.30-1.20 Laboratory 03/25/2009 [facility] TSH (Thyrotropin) 2.580 0.350-5.500 test finding [phone] uIU/ml CBC 02/03/2008 [facility] WBC 5.3 x103 4.3-10.9 [phone] RBC 4.47 x106 3.80-5.30 Hemoglobin 14.2 g/dL [...] Absolute 0.1 x103 0.0-0.2 Comprehensive Metabolic 02/03/2008 [facility] Glucose 97 mg /dL 70-100 [phone] BUN 19 mg/dL High 4-18 Creatinine, Serum 1.0 mg/dL 0.5-1.2 Sodium 142 mmol/L 136-146 Potassium 4.8 mmol/L 3.5-5.3 Chloride 105 mmol/L 98-110 Carbon Dioxide 28 mmol/L 20-32 Albumin 4.3 g/dL 3.5-4.7 Protein, Total 6.7 g/dL 6.4-8.3 Calcium 9.8 mg/dL 8.4-10.4 Alkaline Phosphatase 73 U/L 10-118 Sgot (Ast) 26 U/L 3-40 SGPT (Alt) 28 U/L 7-50 Bilirubin, Total 0.40 mg/dL 0.30-1.20 Laboratory 02/03/2008 [facility] TSH (Thyrotropin) 2.030 0.350-5.500 test finding [phone] uIU/ml T Transglutaminase Iga 1 U/mL 0-3 78 Vitamin D, 25 Oh 69.8 ng/mL 32.0-100.0 79 Gliadin 02/03/2008 [facility] Deamidated 3.6 U/mL 0.0- 10.0 80 Igg/Iga AB [phone] Gliadin Abs, IgA Deamidated Gliadin Abs, IgG 0.6 U/mL 0.0-10.0 81 Laboratory test 02/03/2008 [facility] GFR (Calculated) 60 82 finding [phone] Laboratory test 02/03/2008 [facility] [place] Thin Prep SEE NOTE 83 finding [phone] W/HPV(Lsil/JASON/As c) Hemoccult 02/03/2008 In House Lab [...] NEG Neg Urine Blood NEG Neg Specific [place] NEG Low 1.01-1.02 Hemoccult 02/06/2007 In House Lab Stool-Occult Blood #1 NEG Neg (607)- - Stool-Occult Blood #2 NEG Neg Stool-Occult Blood #3 NEG Neg Lipid 01/31/2007 [facility] Cholesterol, 210 mg/dL High 120-200 84 Profile [phone] Total HDL Cholesterol 62 mg/dL High 40-60 LDL Cholesterol, Calc. 135 mg/dL AB 85 Triglycerides 66 mg/dL 86 LDL/HDL Cholesterol 2.2 87 Chol/HDL Cholesterol 3.4 88 Laboratory 01/31/2007 [facility] TSH (Thyrotropin) 2.110 0.350-5.500 test finding [phone] uIU/ml GFR (Calculated) 60 89 Laboratory test 01/31/2007 [facility] Helicobacter <0.89 0.00-0.88 90 finding [phone] Pylori,Iga index Laboratory test 01/31/2007 [facility] [place] Thin Prep SEE NOTE 91 finding [phone] W/HPV(Lsil/JASON/ Asc) Urine DIP 01/31/2007 In House Lab Leukocytes NEG Neg (607)- - Urine Nitrites NEG Neg Urine pH 9 High 5-6 Total Protein, Urine NEG Neg Urine Glucose NORM Norm Urine Ketones NEG Neg Urobilinogen NORM Norm Urine Bilirubin NEG Neg Urine Blood NEG Neg Specific [place] NA Low 1.01-1.02 Comprehensive Metabolic 01/31/2007 [facility] Glucose 85 mg /dL 70-100 [phone] BUN 20 mg/dL High 4-18 Creatinine, Serum 1.0 mg/dL 0.5-1.2 Sodium 142 mmol/L 136-146 Potassium 4.4 mmol/L 3.5-5.3 Chloride 104 mmol/L 98-110 Carbon Dioxide 24 mmol/L 20-32 Albumin 4.3 g/dL 3.5-4.7 Protein, Total 6.9 g/dL 6.4-8.2 Calcium 9.6 mg/dL 8.4-10.4 Alkaline Phosphatase 71 U/L 10-118 Sgot (Ast) 28 U/L 3-40 SGPT (Alt) 25 U/L 7-50 Bilirubin, Total 0.30 mg/dL 0.30-1.20 Laboratory test 05/24/2006 [facility] Erythrocyte Sed 1 MM/HR 0-30 finding [phone] Rate CBC With 05/24/2006 [facility] White Blood 4.5 CUMM Low 4.8-10.8 Electronic Diff [phone] Count Abs Basophils 0 0-0.2 Abs Eosinophils [...] WDTH 12 % 10.5-15 Laboratory test 05/24/2006 [facility] C Reactive < 0.5 mg/dL Less Than finding [phone] Protein 0.5 Hemoccult 03/01/2006 In House Lab Stool-Occult neg 02/21 Neg (607)- - Blood #1 Stool-Occult Blood #2 neg 02/23 Neg Stool-Occult Blood #3 neg 02/24 Neg Urine DIP 08/15/2005 In House Lab Leukocytes neg Neg (607)- - Urine Nitrites neg Neg Urine pH 5 5-6 Total Protein, Urine neg Neg Urine Glucose norm Norm Urine Ketones neg Neg Urobilinogen norm Norm Urine Bilirubin neg Neg Urine Blood neg Neg Specific [place] na Low 1.01-1.02 Laboratory test 08/15/2005 [facility] CK, Total 63 U/L 29-229 finding [phone] TSH (Thyrotropin) 2.230 uIU/ml 0.350-5.500 T-4 Free 1.1 ng/dL 0.8-1.8 Magnesium 2.4 mg/dL 1.7-2.7 Vitamin B-12 468 pg/mL 92 GFR (Calculated) 60 93 Comprehensive Metabolic 08/15/2005 [facility] Glucose 83 mg /dL 70-100 [phone] BUN 20 mg/dL High 4-18 Creatinine, Serum 1.0 mg/dL 0.5-1.2 Sodium 143 mmol/L 136-146 Potassium 4.0 mmol/L 3.5-5.3 Chloride 105 mmol/L 98-110 Carbon Dioxide 30 mmol/L 20-32 Albumin 4.2 g/dL 3.5-4.7 Protein, Total 6.6 g/dL 6.4-8.2 Calcium 9.0 mg/dL 8.4-10.4 Alkaline Phosphatase 69 U/L 10-118 Sgot (Ast) 25 U/L 3-30 SGPT (Alt) 20 U/L 7-40 Bilirubin, Total 0.32 mg/dL 0.30-1.20 Hemoccult 02/07/2005 In House Lab Stool-Occult Blood #1 NEG 02/03 Neg (607)- - Stool-Occult Blood #2 NEG 02/04 Neg Stool-Occult Blood #3 NEG 02/05 Neg Laboratory test 08/09/2004 [facility] Thinprep W/HPV REC'D- SEE finding [phone] JASON/Acus/LGSIL IMAGE Urine DIP 08/09/2004 In House Lab Leukocytes NEG Neg (607)- - Urine Nitrites NEG Neg Urine pH 5 5-6 Total Protein, Urine NEG Neg Urine Glucose NORM Norm Urine Ketones NEG Neg Urobolinogen NORM Norm Urine Bilirubin NEG Neg Urine Blood NEG Neg Specific [place] NA Low 1.01-1.02 Hemoccult 03/04/2004 In House Lab Stool-Occult Blood #1 NEG Neg (607)- - Stool-Occult Blood #2 NEG Neg Stool-Occult Blood #3 NEG Neg Laboratory test 08/05/2003 [facility] Thin Layer Pap REC'D-SEE finding [phone] W/Reflex To HPV IMAGE For ASCUS Urine DIP 08/05/2003 In House Lab Leukocytes NEG Neg (607)- - Urine Nitrites NEG Neg Urine pH 5 5-6 Total Protein, Urine NL Neg Urine Glucose NL Norm Urine Ketones NL Neg Urobolinogen NL Norm Urine Bilirubin NL Neg Urine Blood NL Neg Specific [place] N/A Low 1.01-1.02 Laboratory test finding 03/15/2003 [facility] [place] Stool PRELIMINARY (607)- - Stool-Giardia Lamblia Antigen NEGATIVE Hemoccult 12/16/2002 In House Lab Stool-Occult Blood #1 NEG Neg (607)- - Stool-Occult Blood #2 NEG Neg Stool-Occult Blood #3 NEG Neg Comp Metabolic 12/10/2002 [facility] Anion Gap 9.0 mmol/L 2-11 94 Panel [phone] Albumin/Globulin Ratio 1.7 1-3 Albumin 4.0 GM/DL [...] NEG Neg Urine Blood NEG Neg Specific [place] #2 DIP OK High 1.01-1.02 Laboratory test 08/06/2002 [facility] Pap Smear REC'D -SEE IMAGE finding [phone] Urine DIP 08/06/2002 In House Lab Leukocytes NEG Neg (607)- - Urine Nitrites POS Neg Urine pH 5 5-6 Total Protein, Urine NEG Neg Urine Glucose NORM Norm Urine Ketones NEG Neg Urobolinogen NORM Norm Urine Bilirubin NGE Neg Urine Blood NEG Neg Specific [place] NA Low 1.01-1.02 Lipid Profile 09/23/2001 [facility] Cholesterol, 177 mg/dL 120.0 - 95 [phone] Total 200.0 Chol/HDL Cholesterol 3.6 96 HDL Cholesterol 49 mg/dL 35.0 - 9999.0 LDL/HDL Cholesterol 2.3 97 LDL Cholesterol 115 mg/dL 98 Triglycerides 64 mg/dL 37.0 - 241.0 Urine DIP 09/20/2001 In House Lab Leukocytes NL Neg (607)- - Urine Nitrites NEG Neg Urine pH 5 5-6 Total Protein, Urine NEG Neg Urine Glucose NL Norm Urine Ketones NEG Neg Urobolinogen NL Norm Urine Bilirubin NEG Neg Urine Blood NEG Neg Specific [place] N/A Low 1.01-1.02 1 [facility] Severe Sepsis and Septic Shock Management Bundle Measure requires all lactic acids initially measuring >2.0 mmol/L be repeated. 2 [facility] Severe Sepsis and Septic Shock Management Bundle Measure requires all lactic acids initially measuring >2.0 mmol/L be repeated. 3 Standard intensity warfarin therapeutic range: 2.0-3.0 High intensity warfarin therapeutic range: 2.5-3.5 4 Troponin-I testing on Plasma Separator Tubes (PST) has a known false positive rate of 0.20-0.40%. All positive troponins reflex immediately to secondary confirmatory testing. Using the [employer] Access Immunoassay systems, the 99th percentile upper reference limit was demonstrated to be < 0.03 ng/mL. 5 Because ethnic data is not always readily [...] 15-29 5 Kidney failure <15 (or dialysis) 6 *Ascorbic acid is present which may interfere with detection of blood. 7 Manager Hydraulic: [id number] SEE RESULT BELOW Name: JASONMARTIMARGUERITE : [address]: Paulette Swan DO Acct: [id number] Unit: [id number] AGE: 73 Location: [place] [address] Re10/23/18 Dis: 10/24/18 SEX: F Status: DIS IN SPEC: [id number] JOSSIE: 10/22/[address]: Melissa SESAY REQ: [id number] RECD: 10/22/18 STATUS: COMP [facility] DR: Juan Smith MD _ SOURCE: BLOOD,[place]: ORDERED: Blood Cult Procedure Result Reported Site Aerobic Culture Bottle Final 10/27/18948 ML No Growth Day 5 Anaerobic Culture Bottle Final 10/27/18948 ML No Growth Day 5 * ML - Main Lab . END OF REPORT DEPARTMENT OF PATHOLOGY, [address] [place] [address] Bruce Waite M.D. Director ESE # [id number] SEE RESULT BELOW Name: MARGUERITE GOMEZ : [address]: Neeru Santana MD Acct: [id number] Unit: [id number] AGE: 73 Location: ED Re10/14/18 SEX: F Status: DEP ER SPEC: [id number] JOSSIE: 10/14/18 [facility] DR: Neeru Santana MD REQ: [id number] RECD: 10/14/18 STATUS: CHARAN KOHLER DR: Juan Neil MD _ SOURCE: BLOOD,VENO SPDESC: ORDERED: Blood Cult Procedure Result Reported Site Aerobic Culture Bottle Final 10/19/182113 ML No Growth Day 5 Anaerobic Culture Bottle Final 10/19/182113 ML No Growth Day 5 * ML - Main Lab . END OF REPORT DEPARTMENT OF PATHOLOGY, [address] [place] [address] Bruce Waite M.D. Director [facility] # [id number] 10 *Ascorbic acid is present which may interfere with detection of blood. 11 Standard intensity warfarin therapeutic range: 2.0-3.0 High intensity warfarin therapeutic range: 2.5-3.5 12 Because ethnic data is not always [...] 5 Kidney failure <15 (or dialysis) 13 [facility] Severe Sepsis and Septic Shock Management Bundle Measure requires all lactic acids initially measuring >2.0 mmol/L be repeated. 14 Because ethnic data is not always readily [...] 15-29 5 Kidney failure <15 (or dialysis) 15 Normal Range 180 to 914 Indeterminate Range 145 to 180 Deficient Range <145 16 [id number] Warning: A positive result is not useful for establishing a diagnosis of syphilis. In most situations, such a result may reflect a prior treated infection; a negative result can exclude a diagnosis of syphilis except for incubating or early primary disease. 18 Normal Range 180 to 914 Indeterminate Range 145 to 180 Deficient Range <145 19 [id number] Warning: A positive result is not useful for establishing a diagnosis of syphilis. In most situations, such a result may reflect a prior treated infection; a negative result can exclude a diagnosis of syphilis except for incubating or early primary disease. 21 [facility] Severe Sepsis and Septic Shock Management Bundle Measure requires all lactic acids initially measuring >2.0 mmol/L be repeated. 22 *Ascorbic acid is present which may interfere with detection of blood. 23 Because ethnic data is not always [...] 5 Kidney failure <15 (or dialysis) 24 Reference Range and Interpretation: TnI (ng/mL) Interpretation Less Than 0.03 ng/mL Not supportive of diagnosis of NM 0.03 - 0.50 ng/mL Indeterminate: suggest serial studies if clinically indicated. Greater than 0.5 ng/mL Consistent with diagnosis of NM 25 Desirable <150 Borderline high 150-199 High 200-499 Very High >500 26 Desirable <200 Borderline high 200-239 High >239 27 Low <40 Desirable: 40-60 High: >60 28 Desirable: <100 mg/dL Near Optimal: 100-129 mg/dL Borderline High: 130-159 mg/dL High: 160-189 mg/dL Very High: >189 mg/dL 29 Because ethnic data is not always readily [...] 15-29 5 Kidney failure <15 (or dialysis) 30 Desirable <150 Borderline high 150-199 High 200-499 Very High >500 31 Desirable <200 Borderline high 200-239 High >239 32 Low <40 Desirable: 40-60 High: >60 33 Desirable <100 Near Optimal 100-129 Borderline high 130-159 High 160-189 Very High >189 34 Potassium reference range changed effective 04/12/14 35 Because ethnic data is not always readily [...] 15-29 5 Kidney failure <15 (or dialysis) 36 Because ethnic data is not always readily [...] 15-29 5 Kidney failure <15 (or dialysis) 37 FASTING 38 HDL Interpretation: Undesirable: High Risk: Less than 40 mg/dL Desirable: Low Risk: Greater than 60 mg/dL 39 LDL Interpretation: Low Risk Optimal Level: LDL Less than 100 mg/dL Near or Above Optimal: LDL 100-129 mg/dL Borderline High Risk: LDL 130-159 mg/dL High Risk: LDL 160-189 mg/dL Very High Risk: LDL Greater than 189 mg/dL 40 FASTING 41 Because ethnic data is not always readily [...] 15-29 5 Kidney failure <15 (or dialysis) 42 -- REFERENCE VALUE -- 25-HYDROXY D TOTAL (D2+D3) Optimum levels in the normal population are 25-80 Test Performed by: [address] [address] Environmental Maintenance Worker: Florencio Ayala III, M.D. R 43 FASTING 44 A metabolite of Naproxen, O-desmethylnaproxen, has been shown to interfere with the Jendrassik-Latisha method for measuring total bilirubin. Samples from patients who have taken Naproxen have shown spurious elevation in total bilirubin levels. 45 Because ethnic data is not always readily [...] 15-29 5 Kidney failure <15 (or dialysis) 46 Desirable: Less than 200 MG/DL Borderline-High Risk: 200-239 MG/DL High-Risk: 240 MG/DL and over 47 HDL Interpretation: Undesirable: High Risk: Less than 40 MG/DL Desirable: Low Risk: Greater than 60 MG/DL 48 FASTING 49 ---- RUN DATE: 05/25/11 [facility] NMI LIVE PAGE 1 RUN TIME: 1131 Specimen Inquiry RUN USER: INTERFACE -- Name: MARGUERITE GOMEZ Status: REG REF Re05/24/11 Age/Sex: 66/F Unit#: [id number] Location: [facility] : 44 -- [id number] [facility] Spec Date: 05/24/[address]: Juan chacon MD Spec Type: CYTOLOGY [...] was evaluated with the assistance of the [employer] Pap Test Imaging System. However, due to technical or cytologic issues, the imaging could not be completed. Comprehensive manual rescreening by a Camera Technician was performed. The Pap Smear is a [...] years. Final Interpretation electronically signed by: Major HARRISON([facility]) 05/25/11 113 1 -- -- DEPARTMENT OF PATHOLOGY, [address] [place] [address] [facility] Permit #[id number] Bruce Waite M.D. Director Bennett Car M.D. Cath Lab Tech Dir krystal -- 50 CHOLESTEROL INTERPRETATION: Desirable: Less than 200 MG/DL Borderline-High Risk: 200-239 MG/DL High-Risk: 240 MG/DL and over 51 HDL INTERPRETATION: Undesirable: High Risk: Less than 40 MG/DL Desirable: Low Risk: Greater than 60 MG/DL 52 LDL INTERPRETATION: Low Risk Optimal Level: LDL Less than 100 MG/DL Near or Above Optimal: LDL 100-129 MG/DL Borderline High Risk: LDL 130-159 MG/DL High Risk: LDL 160-189 MG/DL Very High Risk: LDL Greater than 189 MG/DL 53 Anion gap measurement may be of limited value in the presence of any alkalosis, especially in a combined acid base disorder. . 54 A metabolite of Naproxen, O-desmethylnaproxen, has been shown to interfere with the Jendrassik-Latisha method for measuring total bilirubin. Samples from patients who have taken Naproxen have shown spurious elevation in total bilirubin levels. 55 Because ethnic data is not always readily [...] 15-29 5 Kidney failure <15 (or dialysis) 56 Anion gap measurement may be of limited value in the presence of any alkalosis, especially in a combined acid base disorder. . 57 Note change in reference range as of 01/30/08. The change was based on recommendations from the [place] [employer]. 58 A metabolite of Naproxen, O-desmethylnaproxen, has been shown to interfere with the Jendrassik-[place] method for measuring total bilirubin. Samples from patients who have taken Naproxen have shown spurious elevation in total bilirubin levels. 59 Because ethnic data is not always readily [...] 15-29 5 Kidney failure <15 (or dialysis) 60 CHOLESTEROL INTERPRETATION: Desirable: Less than 200 MG/DL Borderline-High Risk: 200-239 MG/DL High-Risk: 240 MG/DL and over 61 HDL INTERPRETATION: Undesirable: High Risk: Less than 40 MG/DL Desirable: Low Risk: Greater than 60 MG/DL 62 LDL INTERPRETATION: Low Risk Optimal Level: LDL Less than 100 MG/DL Near or Above Optimal: LDL 100-129 MG/DL Borderline High Risk: LDL 130-159 MG/DL High Risk: LDL 160-189 MG/DL Very High Risk: LDL Greater than 189 MG/DL 63 [employer] DEPARTMENT OF PATHOLOGY or Extension [address] [facility] [facility] CYT[facility] REPORT PATIENT: MARGUERITE GOMEZ : 1945 AGE: 65 Y SEX: F ACCT: [id number] PROCEDURE DATE: 04/20/2010 DATE RECEIVED: 04/21/2010 REQUESTING PHYSICIAN: JUAN NEIL MD LOCATION: [facility] Case No. [id number] PATIENT DATA: [id number] SPECIMEN SUBMITTED: * * (HPVII) THIN PREP [...] are examined with an FDA-approved location-guidance system (78169). Performed @ [facility] [address] [place] [id number] 64 CHOL/HDL Risk Ratio Levels MALE FEMALE 1/2 X Average 3.4 3.3 Average 5.0 4.4 2 X Average 9.5 7.0 3 X Average 24.0 11.0 65 Optimal under 100 mg/dl Near or above Optimal 100 - 129 mg/dl Borderline High 130 - 159 mg/dl High 160 - 189 mg/dl Very High above 190 mg/dl 66 LDL/HDL Risk Ratio Levels MALE FEMALE 1/2 X Average 1.0 1.5 Average 3.6 3.2 2 X Average 6.3 5.0 3 X Average 8.0 6.1 67 Normal vaginal angela. 68 NO EPI, NO WBC, FEW GRAM JÚNIOR. RODS, 69 FASTING 70 CHOL/HDL Risk Ratio Levels MALE FEMALE 1/2 X Average 3.4 3.3 Average 5.0 4.4 2 X Average 9.5 7.0 3 X Average 24.0 11.0 71 Optimal under 100 mg/dl Near or above Optimal 100 - 129 mg/dl Borderline High 130 - 159 mg/dl High 160 - 189 mg/dl Very High above 190 mg/dl 72 LDL/HDL Risk Ratio Levels MALE FEMALE 1/2 X Average 1.0 1.5 Average 3.6 3.2 2 X Average 6.3 5.0 3 X Average 8.0 6.1 73 [facility] [employer] DEPARTMENT OF PATHOLOGY or Extension [address] [facility] CYT[facility] REPORT PATIENT: MARGUERITE GOMEZ : 1945 AGE: 64 Y SEX: F ACCT: [id number] PROCEDURE DATE: 03/31/2009 DATE RECEIVED: 04/01/2009 REQUESTING PHYSICIAN: JUAN NEIL MD LOCATION: [facility] Case No. [id number] PATIENT DATA: [id number] SPECIMEN SUBMITTED: * * (HPVII) THIN PREP [...] are examined with an FDA-approved location-guidance system (41455). Performed @ [facility], [place] [address] [place] [address] "" 74 mL/min/1.73m2 . Normal Function or Mild Renal [...] drugs that are excreted by the kidneys. 75 CHOL/HDL Risk Ratio Levels MALE FEMALE 1/2 X Average 3.4 3.3 Average 5.0 4.4 2 X Average 9.5 7.0 3 X Average 24.0 11.0 76 Optimal under 100 mg/dl Near or above Optimal 100 - 129 mg/dl Borderline High 130 - 159 mg/dl High 160 - 189 mg/dl Very High above 190 mg/dl 77 LDL/HDL Risk Ratio Levels MALE FEMALE 1/2 X Average 1.0 1.5 Average 3.6 3.2 2 X Average 6.3 5.0 3 X Average 8.0 6.1 78 Negative 0 - 3 Weak Positive 4 - 10 Positive >10 . Tissue Transglutaminase (tTG) has been identified as the endomysial antigen. Studies have demonstr- ated that endomysial IgA antibodies have over 99% specificity for gluten sensitive enteropathy. 79 Recent studies consider the lower limit of 32.0 ng/mL to be a threshold for optimal health. Balta LEE. J Nutr. 2005 Jul;135(2):317-22. 80 Results for this test are for research purposes only by the assay's electronic data processing auditor. The performance characteristics of this product have not been established. Results should not be used as a diagnostic procedure without confirmation of the diagnosis by another medically established diagnostic product or procedure. 81 Results for this test are for research purposes only by the assay's electronic data processing auditor. The performance characteristics of this product have not been established. Results should not be used as a diagnostic procedure without confirmation of the diagnosis by another medically established diagnostic product or procedure. 82 mL/min/1.73m2 . Normal Function or Mild Renal [...] drugs that are excreted by the kidneys. 83 [employer] DEPARTMENT OF PATHOLOGY or Extension [address] [facility] [facility] CYT[facility] REPORT PATIENT: MARGUREITE GOMEZ : 1945 AGE: 62 Y SEX: F ACCT: [id number] PROCEDURE DATE: 02/03/2008 DATE RECEIVED: 02/04/2008 REQUESTING PHYSICIAN: JOCELYNN MCCORMICK MD LOCATION: [facility] Case No. [id number] PATIENT DATA: [id number] SPECIMEN SUBMITTED: * * (HPVII) THIN PREP [...] are examined with an FDA-approved location-guidance system (43579). Performed @ [facility], [place] [address] [place] [id number] 84 Cholesterol Risk Levels (NIH) Recommended: under 200 mg/dl Borderline : 200-239 mg/dl High Risk : Above 240 mg/dl 85 The National Cholesterol Education Program recommends the following ranges for LDL Cholesterol: Optimal under 100 mg/dl Near or above Optimal 100 - 129 mg/dl Borderline High 130 - 159 mg/dl High 160 - 189 mg/dl Very High above 190 mg/dl 86 Triglyceride Risk Levels: Normal : <150 mg/dl Borderline : 150-199 mg/dl High : 200-499 mg/dl Very High : >500 mg/dl 87 LDL/HDL Risk Ratio Levels MALE FEMALE 1/2 X Average 1.00 1.47 Average 3.55 3.22 2 X Average 6.25 5.03 3 X Average 7.99 6.14 88 CHOL/HDL Risk Ratio Levels MALE FEMALE 1/2 X Average 3.4 3.3 Average 5.0 4.4 2 X Average 9.5 7.0 3 X Average 24.0 11.0 89 mL/min/1.73m2 . Normal Function or Mild Renal [...] drugs that are excreted by the kidneys. 90 Negative <0.89 Equivocal 0.89 - 0.99 Positive >0.99 91 [employer] DEPARTMENT OF PATHOLOGY or Extension [address] [facility] CY[facility] REPORT PATIENT: MARGUERITE GOMEZ : 1945 AGE: 61 Y SEX: F ACCT: [id number] PROCEDURE DATE: 01/31/2007 DATE RECEIVED: 02/01/2007 REQUESTING PHYSICIAN: JOCELYNN MCCORMICK MD LOCATION: [facility] Case No. [id number] PATIENT DATA: [id number] SPECIMEN SUBMITTED: Source Code: HPVII Body Site [...] are examined with an FDA-approved location-guidance system (78100). Performed @ [facility] [employer] [address] [place], [place] [id number] 92 Greater than or equal to 211 is normal. . 93 mL/min/1.73m2 . Normal Function or Mild Renal [...] that are excreted by the kidneys. . 94 Anion gap measurement may be of limited value in the presence of any alkalosis, especially in a combined acid base disorder. . 95 Cholesterol Risk Levels (NIH) Recommended: under 200 mg/dl Borderline : 200-239 mg/dl High Risk : Above 240 mg/dl . 96 CHOL/HDL Risk Ratio Levels MALE FEMALE 1/2 X Average 3.4 3.3 Average 5.0 4.4 2 X Average 9.5 7.0 3 X Average 24.0 11.0 . 97 LDL/HDL Risk Ratio Levels MALE FEMALE 1/2 X Average 1.00 1.47 Average 3.55 3.22 2 X Average 6.25 5.03 3 X Average 7.99 6.14 . 98 LDL Cholesterol Risk Levels (NIH) Recommended: under 130 mg/dl Borderline: 131 - 159 mg/dl High Risk: above 160 mg/dl . Procedures Date Code Description Status 10/21/2012 12862 I&D Of Abscess Completed 05/24/2011 80893 EKG, at Least 12 Leads w/Interpretation and Report Completed 06/11/2009 10516750 Colonoscopy Completed 02/03/2008 28771 Audiometric Screening Test, Pure Tone, Air Only Completed 01/28/2007 36623 EKG, at Least 12 Leads w/Interpretation and Report Completed 08/09/2004 66775 EKG, at Least 12 Leads w/Interpretation and Report Completed 08/09/2004 33630 EKG, at Least 12 Leads w/Interpretation and Report Completed 01/29/2003 20981 Nail Avulsion Completed Encounters Type Date Location Provider Dx Diagnosis Office Visit 05/13/2018 Main Office Mary Soto00.00 Encntr for general 9:30a Jeffrey Montiel. adult medical exam w/o abnormal findings Z23 Encounter for immunization Office Visit 05/21/2017 11:15a Main Office Mary Soto00.00 Encntr noé Montiel R.D. general adult medical exam w/o abnormal findings Z00.00 Encntr for general adult medical exam w/o abnormal findings R42 Dizziness and giddiness Office Visit 04/27/2017 12:15p Main Office Juan Neil, F02.80 Dementia in oth M.Major., R.D. diseases classd elswhr w/o behavrl disturb Office Visit 01/08/2017 2:30p Main Office Juan Neil, R41.3 Other amnesia M.Jennifer, R.D. Office Visit 08/30/2016 11:15a Main Office Juan Neil, M25.561 Pain in right M.DIban, R.D. knee Office Visit 05/19/2016 10:45a Main Office Juan Neil, Z00.00 Encntr for Parvin.Major., R.D. general adult medical exam w/o abnormal [...] Office Visit 12/01/2015 10:00a Main Office Juan Neil, R55 Syncope and M.D., R.D. collapse S01.81xA Laceration w/o foreign body of oth part of head, init encntr Office Visit 05/26/2015 2:15p Main Office Juan Neil, Z00.00 Encntr for Tiana, R.D. 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 Medical Routine AT [facility] 564.1 Irritable Bowel Syndrome Office Visit 04/21/2013 9:30a Main Office Juan Neil V70.0 Examination General M.D., R.D. 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 Office Visit 10/14/2012 11:45a Main Office Carmen Patel, 782.9 Skin & Integumentary LIDAR TECHNICIAN-C Tissue Other Symptoms Office Visit 10/09/2012 2:30p Main Office Carmen Patel, 782.9 Skin & Integumentary LIDAR TECHNICIAN-C Tissue Other Symptoms Office Visit 04/25/2012 10:45a Main Office Juan Neil, 733.90 Bone & Cartilage M.D., R.D. Disorder Unspec Office Visit 03/27/2012 8:30a Main Office Juan Neil V70.0 Examination General M.D., R.D. 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 381.01 Otitis Media Serous Acute Office Visit 05/24/2011 8:30a Main Office Juan Neil V70.0 Examination General M.D., R.D. 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 V72.31 Routine [employer]er [employer] Examination V76.51 Special Screening For Malignant Neoplasms Colon V70.0 Examination General Medical Routine AT Health Care Facility 787.60 Full Incontinence Of Feces 702.19 Seborrheic Keratosis Other Office Visit 10/20/2009 9:00a Main Office Juan Neil, 616.10 Vaginitis & Tiana, R.D. Vulvovaginitis Unspec Office Visit 10/06/2009 9:45a Main Office Juan Neil, 272.2 Hyperlipidemia Mixed M.D., R.D. Office Visit 06/08/2009 2:30p Main Office Jocelynn Brunson 724.5 Backache Unspec Blegen, MXochitl. Office Visit 03/31/2009 8:15a Main Office Juan Neil, 715.90 Osteoarthrosis Parvin.Jennifer, R.D. 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 Office Visit 08/09/2004 1:00p Main Office Carmen Israel V72.31 Routine Detailer [employer] M.DIban Examination V70.0 Examination General Medical Routine [...] Office Visit 06/16/2003 2:45p Main Office Carmen Israel V58.3 Surgical Dressings M.D. & Sutures Encounter Office Visit 05/22/2003 11:45a Main Office Joseph Morfin, 882.0 Open Wound Hand M.D. Except Finger(S) W/O Complication E906.3 Bite Other Animal Except Arthropod Office Visit 04/08/2003 10:00a Main Office Carmen Israel, 564.1 Irritable Bowel M.D. Syndrome Office Visit 08/06/2002 8:00a Main Office Carmen Israel, V72.3 Examination M.D. Gynecological V70.0 Examination General Medical Routine AT [facility] 726.11 Tendinitis Calcifying Shoulder Office Visit 09/20/2001 2:15p Main Office Carmen Israel, V70.0 Examination General M.D. Medical Routine AT [facility]
--- OUTSIDE RECORDS SUMMARY | 2018-11-14 11:25 | XMS REPORT | Continuity of Care Document ---
:1945 External Reference #:[id number] Author Name Rex Elliott M.D. Address [address] [place] [address] Care Team Providers Name Role Phone Juan Neil M.D., R.D. 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 Payers Date Identification Numbers Payment Provider Subscriber Effective: 2016 Policy Number: [id number] [facility] Marguerite Gomez PayID: [id number] [address] [place] [address] Effective: 2004 Policy Number: [facility](Josefina Gomez [id number] Group Name: Noé [address] PayID: [id number] [place] [address] Advance Directives Type Date Description Status Comment [...] Medications SIG Qnty Indications Ordering Date Provider Cephalexin 1 by mouth three 21caps L03.116 Shawnti Dayanara 10/28/2018 500mg times a day ZEKE Bingham Capsules Melatonin 1 by mouth every 90tabs Juan Niel, 07/01/2018 3mg Tablets night at bedtime as Tiana R.D. needed sleep Risperdal 1 by mouth twice a 30tabs Juan Neil, 06/17/2018 0.5mg day Parvin.Jennifer, R.D. Tablets Alprazolam Discontinue 1tabs Juan Neil, 06/08/2018 0.5mg Medication Parvin.Jennifer, R.D. Tablets Benadryl Allergy Discontinue 1caps Juan Neil, 05/30/2018 25mg Medication Tiana, R.D. Capsules Calcium + D3 take one tablet by 90tabs Juan Neil, 05/30/2018 mouth qd M.Jennifer, R.D. [id number] Tablets Aspir-81 take one tablet by 90tabs Juan Neil, 03/27/2012 81mg Tablets mouth daily Tiana RTanvi Kaiser 1 po qd 90caps Juan Neil, 05/24/2011 Capsules Tiana, RTanvi Combigan bid With DR. Gerardo Brunson 02/03/2008 0.2/0.5% for left eye BlegenTiana Solution History Medications Alprazolam take one by mouth 30tabs Juan Neil, 11/09/2017 - 0.25mg once daily as Tiana, R.DIban 06/08/2018 Tablets needed for anxiety Melatonin Juan Neil, 05/26/2015 - Capsules Tiana, R.D. 05/21/2017 Calcium + D3 take one tablet Juan Neil, 04/23/2014 - Tablets by mouth bid Tiana, R.DIban 05/30/2018 Nystatin apply to affected 30gm Juan Neil, 07/16/2013 - 610367Tycy/GM area bid - tid Tiana, R.DIban 04/23/2014 Cream prn Satnam Mag Zinc 1 po qd Juan Neil, 04/21/2013 - Tablets Tiana, R.D. 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 04/08/2013 Valtrex 1 po tid for 10 30tabs 389.9 Juan Neil, 11/20/2012 - 1gm Tablets days Tiana, R.D. 04/21/2013 Cephalexin 1 tablet po bid x 20tabs 782.9 Rex Elliott M.D. 10/09/2012 - 250mg 10 days 12/28/2012 Tablets Xanax 1-2 po tid prn. 12tabs Juanantonio Neil, 10/08/2012 - 0.5mg Tablets Take 1/2 hour M.DIban, R.D. 04/21/2013 before flying. Calcium 600 + D 1 po qd Juanantonio Neil, 05/12/2012 - MTanvi, R.D. 04/21/2013 [id number] Tablets Vitamin B-12 1 po qd Juan Neil, 05/12/2012 - 500mcg Parvin.Jennifer, R.D. 04/21/2013 Tablets Sub Vitamin D-3 1pill qd Juan Neil, 05/12/2012 - 400Unit Tiana, R.D. 04/21/2013 Tablets Metamucil Juan Neil, 03/27/2012 - Powder M.DIban, R.D. 04/23/2014 Vitamin B-12 1 po qd Juan Neil, 03/27/2012 - 1000mcg Parvin.Jennifer, R.D. 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 05/24/2011 Keflex one po bid for 10 20tabs Lizette A. 08/25/2006 - 500mg Tablets days Marcelino, 03/31/2009 [facility] Augmentin One PO bid For 20tabs 461.9 Rex Elliott M.D. 10/11/2005 - 875mg;125 mg 10 Days 10/31/2005 Tablets Amoxicillin 2 PO bid X 10 40caps Jocelynn Brunson 08/24/2005 - 500mg Days Blegen, M.D. 10/31/2005 Capsules Fish Oil Jocelynn Brunson 08/15/2005 - Caps Blegen, M.DIban 01/31/2007 Aspirin 1 po qd Jocelynn Brunson 08/15/2005 - 325mg Tablets Blegen, M.D. 03/31/2009 Glucosamine And 1350 mg bid Juan Neil, 08/15/2005 - Chondroitin M.D., R.D. 04/21/2013 Tablets Gingko Biloba Jocelynn Brunson 08/15/2005 - Caplets Blegen, M.DIban 05/24/2011 Potassium Chloride Jocelynn Brunson 08/15/2005 - Blegen, M.D. 05/24/2011 Capsules Premarin Vaginal use up to twice 42.5G Jocelynn Brunson 08/15/2005 - weekly as Blegen, M.D. 03/31/2009 0.625mg/GM Cream directed Calcium Citrate 1-2 tabs a day Juan Neil, 08/09/2004 - 500 M.D., R.D. 05/12/2012 Triamcinolone 0.1% Apply bid to 30units Carmen Israel, 08/05/2003 - Cream affected area M.D. 05/24/2011 0.1% Augmentin one bid x3 days 6tabs Joseph Morfin, 05/22/2003 - 500mg Tablets M.D. 08/09/2004 Physical Therapy PT For Tendonitis 6units Carmen Israel, 08/06/2002 - R Shoulder M.D. 05/24/2011 Fosamax one q week on 4tabs Carmen Israel, 08/06/2002 - 70mg Tablets empty stomach, do M.D. 10/11/2005 not lie down after taking Tylenol With Codeine one to two tabs 60tabs Jocelynn Brunson 02/24/2002 - #3 q4-6h prn pain Tiana Mccormick 05/24/2011 Tablets Medications Administered in Office Medication SIG Qnty Indications Ordering Provider Date TB,Intradermal (PPD, [place]) [facility] 05/27/2018 Injection Immunizations CPT Code Status Date Vaccine Lot # [id number] Given 05/13/2018 Influenza Vaccine High Dose PF [id number] 22334 Given 02/08/2016 Influenza Vaccine High Dose PF [id number] 14448 Given 03/10/2015 Influenza Vaccine High Dose PF [id number] 94773 Given 07/09/2014 Prevnar-13 Pneumococcal Conjugate Vaccine [id number] 92977 Given 03/19/2014 Influenza Vaccine High Dose PF [id number] 86952 Given 03/20/2013 Influenza Vaccine High Dose PF [id number] 79818 Given 03/20/2012 Influenza Vaccine High Dose PF [id number] 52766 Given 04/12/2011 Influenza Vaccine-Preservative Free 3 Yrs And [id number] Above 38316 Given 04/06/2010 Influenza Vaccine-Preservative Free 3 Yrs And [id number] Above 47857 Given 05/25/2009 H1N1 Influenza Vaccine [id number] 52146 Given 05/25/2009 H1N1 Immunization Administration, Including Counseling 43955 Given 03/31/2009 Pneumovax 23 (PPSV23) 65+ years or high risk 2 to [id number] 64 year old 81347 Given 03/31/2009 Influenza Vaccine-Preservative Free 3 Yrs And [id number] Above 70372 Given 05/26/2008 Zoster Vaccine [id number] 49927 Given 03/11/2008 Influenza Virus Vaccine, 3 Yrs And Above [id number] 74663 Given 03/29/2007 Influenza Virus Vaccine, 3 Yrs And Above [id number] 45377 Given 08/15/2005 Tdap (Adacel) [id number] 37760 Given 03/28/2005 Influenza Virus Vaccine, 3 Yrs And Above 58898 Given 04/01/2003 Influenza Virus Vaccine, 3 Yrs And Above 76860 Given 04/01/2003 Influenza Virus Vaccine, 3 Yrs And Above 39189 Given 2002 Influenza Virus Vaccine, 3 Yrs And Above 44239 Given 04/15/2001 Influenza Virus Vaccine, 3 Yrs And Above 81598 Given 04/01/1999 Influenza Virus Vaccine, 3 Yrs And Above 17281 Given 04/08/1998 Influenza Virus Vaccine 50442 Given 03/11/1997 Influenza Virus Vaccine 21094 Given 08/06/1996 Tetanus 29380 Given 03/21/1996 Influenza Virus Vaccine 41607 Given 03/19/1995 Influenza Virus Vaccine 57050 Given 03/09/1994 Influenza Virus Vaccine 84139 Given 03/23/1993 Influenza Virus Vaccine Vital Signs [...] Result H/L Range Note Laboratory test 10/22/2018 [facility] Lactic Acid 1.3 mmol/L N 0.5-2.0 1 finding [phone] Laboratory test 10/22/2018 [facility] Lactic Acid 1.4 mmol/L N 0.5-2.0 2 finding [phone] Inr/Protime 10/22/2018 [facility] Inr 1.14 High 0.82-1.09 3 [phone] Laboratory test 10/22/2018 [facility] Partial 26.4 seconds N 26.0-36.3 finding [phone] Thrombo Time PTT Troponin-I (TnI) 0.01 ng/mL <0.04 4 Comp Metabolic 10/22/2018 [facility] Sodium 132 mmol/ L Low 135-145 Panel [phone] Potassium 4.5 mmol/L N 3.5-5.0 Chloride 100 [...] Egfr 80.2 >60 5 Laboratory test 10/22/2018 [facility] C Reactive 28.21 mg/L High <8.01 finding [phone] Protein CBC Auto Diff 10/22/2018 [facility] White Blood 7.3 N 3.5-10.8 [phone] Count 10^3/uL Red Blood Count 3.70 10^6/uL [...] Blood Cells % 0.1 Urinalysis Profile 10/22/2018 [facility] Urine Color Yellow [phone] Urine Appearance Clear Urine Specific [place] 1.018 N 1.010-1.030 Urine pH 6.0 N 5-9 Urine Urobilinogen Negative Negative Urine Ketones Negative Negative Urine Protein Negative Negative Urine Leukocytes Negative Negative Urine Blood Negative Negative * * Abnormal Negative 6 Urine Nitrite Negative Negative Urine Bilirubin Negative Negative Urine Glucose Negative Negative Influenza A & B 10/22/2018 [facility] Influenza A NEGATIVE Negative 7 Request [phone] Molecular Influenza B Molecular NEGATIVE Negative Laboratory test 10/22/2018 [facility] Blood Culture SEE RESULT 8 finding [phone] BELOW Laboratory test 10/14/2018 [facility] Blood Culture SEE RESULT 9 finding [phone] BELOW Urinalysis Profile 10/14/2018 [facility] Urine Color Straw [phone] Urine Appearance Clear Urine Specific [place] 1.009 Low 1.010-1.030 Urine pH 7.0 N 5-9 Urine Urobilinogen Negative Negative Urine Ketones Negative Negative Urine Protein Negative Negative Urine Leukocytes Negative Negative Urine Blood Negative Negative * * Abnormal Negative 10 Urine Nitrite Negative Negative Urine Bilirubin Negative Negative Urine Glucose Negative Negative Laboratory test 10/14/2018 [facility] Partial 28.3 seconds N 26.0-36.3 finding [phone] Thrombo Time PTT Inr/Protime 10/14/2018 [facility] Inr 0.96 N 0.82- 1.09 11 [phone] CBC Auto Diff 10/14/2018 [facility] White Blood 6.8 10^3/uL N 3.5-10.8 [phone] Count Red Blood Count 4.02 10^6/uL N [...] Blood Cells % 0.0 Laboratory test 10/14/2018 [facility] C Reactive 13.26 mg/L High <8.01 finding [phone] Protein Comp Metabolic 10/14/2018 [facility] Sodium 137 mmol/ L N 135-145 Panel [phone] Potassium 4.1 mmol/L N 3.5-5.0 Chloride 102 [...] Egfr 111.8 >60 12 Laboratory test 10/14/2018 [facility] Lactic Acid 1.3 mmol/L N 0.5-2.0 13 finding [phone] Comp Metabolic 01/08/2017 [facility] Sodium 140 mmol/ L N 133-145 Panel [phone] Potassium 5.1 mmol/L High 3.5-5.0 Chloride 103 [...] 93.4 N >60 14 Laboratory test 01/08/2017 [facility] Vitamin B12 334 pg/mL N 180-914 15 finding [phone] TSH (Thyroid Stim Horm) 1.83 mcIU/mL N 0.34-5.60 16 Syphillis Igg W/Reflex RPR Nonreactive N Nonreactive 17 Laboratory test 05/19/2016 [facility] Vitamin B12 303 pg/mL N 180-914 18 finding [phone] TSH (Thyroid Stim Horm) 2.15 mcIU/mL N 0.34-5.60 19 Syphillis Igg W/Reflex RPR Nonreactive N Nonreactive 20 CBC Auto 11/28/2015 [facility] White Blood 11.1 10^3/ uL High 3.5-10.8 Diff [phone] Count Red Blood Count 4.39 10^6/uL N [...] Cells % 0 N Laboratory test 11/28/2015 [facility] Lactic Acid 1.5 mmol/L N 0.5-2.0 21 finding [phone] Urinalysis 11/28/2015 [facility] Urine Color Yellow N Profile [phone] Urine Appearance Clear N Urine Specific [place] 1.013 N 1.010-1.030 Urine pH 5.0 N 5-9 Urine Urobilinogen Negative N Negative Urine Ketones Trace Abnormal Negative Urine Protein Negative N Negative Urine Leukocytes Negative N Negative Urine Blood Negative N Negative * * Abnormal Negative 22 Urine Nitrite Negative N Negative Urine Bilirubin Negative N Negative Urine Glucose Negative N Negative Comp Metabolic Panel 11/28/2015 [facility] Sodium 139 mmol/L N 133-145 [phone] Potassium 3.9 mmol/L N 3.5-5.0 Chloride 105 [...] 101.1 N >60 23 Laboratory test 11/28/2015 [facility] Magnesium 2.1 mg/dL N 1.9-2.7 finding [phone] Troponin I 0.00 ng/mL N <0.03 24 TSH (Thyroid Stimulating Horm) 2.34 ?IU/mL N 0.34-5.60 Lipid Profile 05/26/2015 [facility] Triglycerides 156 mg/dL N 25 (Trig/Chol/HDL) [phone] Cholesterol 214 mg/dL N 26 HDL Cholesterol 55.5 mg/dL N 27 LDL Cholesterol 127 mg/dL N 28 Comp Metabolic Panel 05/26/2015 [facility] Sodium 139 mmol/L N 133-145 [phone] Potassium 3.9 mmol/L N 3.5-5.0 Chloride 102 [...] 5 5-6 Urine Blood neg Neg Specific [place] 1.020 1.01-1.02 Urine Ketones neg Neg Urine Bilirubin neg Neg Urine Glucose norm Norm CBC Auto Diff 04/16/2014 [facility] White Blood 6.6 10^3/uL N 4.8-10.8 [phone] Count Red Blood Count 4.67 10^6/uL N [...] Cells % 0 N Lipid Profile 04/16/2014 [facility] Triglycerides 92 mg/dL N 30 (Trig/Chol/HDL) [phone] Cholesterol 263 mg/dL N 31 HDL Cholesterol 60.9 mg/dL N 32 LDL Cholesterol 184 mg/dL N 33 Comp Metabolic Panel 04/16/2014 [facility] Sodium 140 mmol/L N 133-145 [phone] Potassium 4.6 mmol/L N 3.5-5.0 34 Chloride [...] N >60 35 Comp Metabolic Panel 04/21/2013 [facility] Sodium 137 mmol/L 133-145 [phone] Potassium 4.1 mmol/L 3.5-5.0 Chloride 100 mmol/L [...] Egfr 106.7 >60 36 Laboratory test 04/21/2013 [facility] Creatine Kinase 54 U/L 0-200 37 finding [phone] Lipid Profile 04/21/2013 [facility] Triglycerides 48 mg/dL 40-200 (Trig/Chol/HDL) [phone] Cholesterol 203 mg/dL High Less than 200 HDL Cholesterol 63 mg/dL High 40-60 38 Cholesterol/HDL Ratio 3.2 Average 1-4.44 LDL Cholesterol 130.4 High Less Than 100 39 CBC With 04/21/2013 [facility] White Blood 8.5 10^3/ uL 4.8-10.8 Manual Diff [phone] Count Red Blood Count 4.47 10^6/uL 4.0-5.4 [...] RBC Morphology Normal Normal Laboratory test 04/21/2013 [facility] Vitamin B12 656 pg/mL 180-914 40 finding [phone] Urine DIP 04/21/2013 [facility] Leukocytes neg Neg (607)- - Urine Nitrites negd Neg Urine pH 8 High 5-6 Total Protein, Urine neg Neg Urine Glucose norm Norm Urine Ketones neg Neg Urobilinogen norm Norm Urine Bilirubin neg Neg Urine Blood neg Neg Specific [place] 1.015 1.01-1.02 Laboratory test 01/13/2013 [facility] Blood Urea 15 mg/dL 6-24 finding [phone] Nitrogen Creatinine 01/13/2013 [facility] Creatinine 0.70 mg/ dL 0.50-1.40 [phone] Egfr Non- 83.2 >60 Egfr 107.0 >60 41 Vitamin D, 25 04/25/2012 [facility] 25-Hydroxy Vitamin <4.0 ng/mL Hydroxy [phone] D2 25-Hydroxy Vitamin D3 38 ng/mL 25-Hydroxy Vitamin D Total 38 ng/mL 42 Urine DIP 03/27/2012 [facility] House [facility] Leukocytes NEG Neg (607)- - Urine Nitrites NEG Neg Urine pH 5 5-6 Total Protein, Urine NEG Neg Urine Glucose NORM Norm Urine Ketones NEG Neg Urobilinogen NORM Norm Urine Bilirubin NEG Neg Urine Blood NEG Neg Specific [place] NA Low 1.01-1.02 Laboratory test 03/20/2012 [facility] Creatine 53 U/ L 0-200 43 finding [phone] Kinase Comp Metabolic 03/20/2012 [facility] Sodium 140 133-145 Panel [phone] mmol/L Potassium 4.2 mmol/L 3.5-5.0 Chloride 106 [...] Egfr 107.3 >60 45 Lipid Profile 03/20/2012 [facility] Triglycerides 62 mg/dL 40-200 (Trig/Chol/HDL) [phone] Cholesterol 193 mg/dL Less than 200 46 HDL Cholesterol 60 mg/dL 40-60 47 Cholesterol/HDL Ratio 3.2 AVERAGE 1-4.44 LDL Cholesterol 120.6 mg/dL High Less Than 100 Laboratory test 03/20/2012 [facility] TSH (Thyroid 2.86 0.34-5.60 48 finding [phone] Stimulating MIU/ML Horm) Laboratory test 05/24/2011 [facility] TSH 2.00 0.34-5.60 finding [phone] MIU/ML Vitamin B12 485 pg/mL 180-914 Urine DIP 05/24/2011 [facility] House [facility] Leukocytes NEG Neg (607)- - Urine Nitrites NEG Neg Urine pH 5-6 5-6 Total Protein, Urine NEG Neg Urine Glucose NORM Norm Urine Ketones NEG Neg Urobilinogen NORM Norm Urine Bilirubin NEG Neg Urine Blood NEG Neg Specific [place] N/A Low 1.01-1.02 Laboratory 05/24/2011 [facility] Cytology ----- 49 test finding [phone] <SEE NOTE> Lipid Panel 05/17/2011 [facility] Triglyceride 61 mg/ dL 40-2 [phone] Cholesterol 207 mg/dL High Less Than 200 50 High Density Lipoprotein 58 mg/dL 40-60 51 Cholesterol/HDL Ratio 3.57 AVERAGE 1-4.44 Low Density Lipoprotein 137 mg/dL High Less Than 100 52 Comprehensive 05/17/2011 [facility] Sodium 141 mmol/ L 135-145 Metabolic [phone] Potassium 4.5 mmol/L 3.5-5.0 Chloride 104 mmol/L [...] > 60 55 CBC No Diff 05/17/2011 [facility] White Blood 5.8 CUMM 4.8-10.8 [phone] Count Red Cell Count 4.40 CUMM 4.2-5.4 Hemoglobin 14.6 g/dL 12.0-16.0 Hematocrit 42 % 35-47 Mean Corpuscular Volume 96 um3 79-97 Mean Corpuscular Hemoglob 33 pg High 27-31 Mean Corpuscular HGB Cone 35 g/dL 32-36 Redcell Distribution WDTH 13 % 10.5-15 Platelet Count 220 CUMM 150-450 Mean Platelet Volume 8.4 um3 7.4-10.4 Laboratory test 05/17/2011 [facility] CPK (Creatine 78 U/L 0-170 finding [phone] Kinase) Laboratory test 05/25/2010 [facility] CPK (Creatine 53 U/L 0-170 finding [phone] Kinase) CBC With 05/25/2010 [facility] White Blood 5.8 CUMM 4.8-10.8 Electronic Diff [phone] Count Red Cell Count 4.28 CUMM 4.2-5.4 [...] Basophils 0 0-0.2 Comp Metabolic Panel 05/25/2010 [facility] Sodium 138 mmol/L 135-145 [phone] Potassium 4.3 mmol/L 3.5-5.0 Chloride 104 mmol/L [...] 107.7 > 60 59 Lipid Profile 05/25/2010 [facility] Triglyceride 61 mg/dL 40-200 (Trig/Chol/HDL) [phone] Cholesterol 206 mg/dL High Less Than 200 [...] NEG Neg Urine Blood NEG Neg Specific [place] N/A Low 1.01-1.02 Laboratory test 04/20/2010 [facility] Thin Prep SEE NOTE 63 finding [phone] W/HPV(Lsil/JASON/Asc) Lipid Panel 11/17/2009 [facility] Cholesterol, Total 169 <200 [phone] mg/dL Triglycerides 41 mg/dL <150 HDL Cholesterol 63 mg/dL High 40-60 Chol/HDL Cholesterol 2.7 64 LDL Cholesterol, Calc. 98 mg/dL 65 LDL/HDL Cholesterol 1.6 66 Hepatic (Liver) 11/17/2009 [facility] Albumin 4.4 g/dL 3.5-4.7 Panel [phone] Protein, Total 6.7 g/dL 6.4-8.3 Alkaline Phosphatase 72 U/L 10-118 Sgot (Ast) 26 U/L 3-40 SGPT (Alt) 25 U/L 7-50 Bilirubin, Total 0.40 mg/dL 0.30-1.20 Bilirubin, Direct 0.13 mg/dL 0.00-0.40 Bilirubin, Indirect 0.27 mg/dL 0.10-1.10 Vaginal Culture 10/20/2009 [facility] Vaginal Culture Normal vaginal 67 [phone] <SEE NOTE> .Gram Stain Additional NO EPI, NO WBC, <SEE NOTE> 68 Vaginitis Dna 10/20/2009 [facility] Screen Trichomonas NEGATIVE Probe Screen [phone] Vaginalis Dna Screen Gardnerella Vaginalis Dna NEGATIVE Screen Laura Species Dna NEGATIVE Urine DIP 10/20/2009 [facility] Leukocytes NEG Neg (607)- - Urine Nitrites NEG Neg Urine pH 9 High 5-6 Total Protein, Urine NEG Neg Urine Glucose NORM Norm Urine Ketones NEG Neg Urobilinogen NORM Norm Urine Bilirubin NEG Neg Urine Blood NEG Neg Specific [place] N/A Low 1.01-1.02 Statin 09/23/2009 [facility] Sgot (Ast) 34 U/L 3-40 69 [phone] SGPT (Alt) 34 U/L 7-50 Lipid Panel 09/23/2009 [facility] Cholesterol, 245 mg/dL Abnormal <200 [phone] Total Triglycerides 59 mg/dL <150 HDL Cholesterol 62 mg/dL High 40-60 Chol/HDL Cholesterol 4.0 70 LDL Cholesterol, Calc. 171 mg/dL Abnormal 71 LDL/HDL Cholesterol 2.8 72 Laboratory test 09/23/2009 [facility] Glucose, 97 mg/dL 70-100 finding [phone] Fasting Hemoccult 03/31/2009 [facility] Stool-Occult [...] neg Neg Urine Blood neg Neg Specific [place] na Low 1.01-1.02 Laboratory 03/31/2009 [facility] Thin Prep SEE 73 test finding [phone] W/HPV(Lsil/JASON/Asc) NOTE GFR 03/25/2009 [facility] GFR (Calculated) >60 74 Calculated [phone] Lipid Panel 03/25/2009 [facility] Cholesterol, Total 233 Abnormal <2 [phone] mg/dL 00 Triglycerides 63 mg/dL <150 HDL Cholesterol 51 mg/dL 40-60 Chol/HDL Cholesterol 4.6 75 LDL Cholesterol, Calc. 169 mg/dL Abnormal 76 LDL/HDL Cholesterol 3.3 77 Comprehensive 03/25/2009 [facility] Glucose 106 mg/dL High 70-100 Metabolic [phone] BUN 16 mg/dL 4-18 Creatinine, Serum 0.70 mg/dL 0.50-1.10 Sodium 143 mmol/L 136-146 Potassium 4.7 mmol/L 3.5-5.3 Chloride 106 mmol/L 98-110 Carbon Dioxide 28 mmol/L 20-32 Albumin 4.1 g/dL 3.5-4.7 Protein, Total 6.5 g/dL 6.4-8.3 Calcium 9.0 mg/dL 8.4-10.4 Alkaline Phosphatase 77 U/L 10-118 Sgot (Ast) 29 U/L 3-40 SGPT (Alt) 28 U/L 7-50 Bilirubin, Total 0.30 mg/dL 0.30-1.20 Laboratory 03/25/2009 [facility] TSH (Thyrotropin) 2.580 0.350-5.500 test finding [phone] uIU/ml CBC 02/03/2008 [facility] WBC 5.3 x103 4.3-10.9 [phone] RBC 4.47 x106 3.80-5.30 Hemoglobin 14.2 g/dL [...] Absolute 0.1 x103 0.0-0.2 Comprehensive Metabolic 02/03/2008 [facility] Glucose 97 mg /dL 70-100 [phone] BUN 19 mg/dL High 4-18 Creatinine, Serum 1.0 mg/dL 0.5-1.2 Sodium 142 mmol/L 136-146 Potassium 4.8 mmol/L 3.5-5.3 Chloride 105 mmol/L 98-110 Carbon Dioxide 28 mmol/L 20-32 Albumin 4.3 g/dL 3.5-4.7 Protein, Total 6.7 g/dL 6.4-8.3 Calcium 9.8 mg/dL 8.4-10.4 Alkaline Phosphatase 73 U/L 10-118 Sgot (Ast) 26 U/L 3-40 SGPT (Alt) 28 U/L 7-50 Bilirubin, Total 0.40 mg/dL 0.30-1.20 Laboratory 02/03/2008 [facility] TSH (Thyrotropin) 2.030 0.350-5.500 test finding [phone] uIU/ml T Transglutaminase Iga 1 U/mL 0-3 78 Vitamin D, 25 Oh 69.8 ng/mL 32.0-100.0 79 Gliadin 02/03/2008 [facility] Deamidated 3.6 U/mL 0.0- 10.0 80 Igg/Iga AB [phone] Gliadin Abs, IgA Deamidated Gliadin Abs, IgG 0.6 U/mL 0.0-10.0 81 Laboratory test 02/03/2008 [facility] GFR (Calculated) 60 82 finding [phone] Laboratory test 02/03/2008 [facility] Thin Prep SEE NOTE 83 finding [phone] W/HPV(Lsil/JASON/As c) Hemoccult 02/03/2008 In House Lab [...] NEG Neg Urine Blood NEG Neg Specific [place] NEG Low 1.01-1.02 Hemoccult 02/06/2007 [facility] House Lab Stool-Occult Blood #1 NEG Neg (607)- - Stool-Occult Blood #2 NEG Neg Stool-Occult Blood #3 NEG Neg Lipid 01/31/2007 [facility] Cholesterol, 210 mg/dL High 120-200 84 Profile [phone] Total HDL Cholesterol 62 mg/dL High 40-60 LDL Cholesterol, Calc. 135 mg/dL AB 85 Triglycerides 66 mg/dL 86 LDL/HDL Cholesterol 2.2 87 Chol/HDL Cholesterol 3.4 88 Laboratory 01/31/2007 [facility] TSH (Thyrotropin) 2.110 0.350-5.500 test finding [phone] uIU/ml GFR (Calculated) 60 89 Laboratory test 01/31/2007 [facility] Helicobacter <0.89 0.00-0.88 90 finding [phone] Pylori,Iga index Laboratory test 01/31/2007 [facility] Thin Prep SEE NOTE 91 finding [phone] W/HPV(Lsil/JASON/ Asc) Urine DIP 01/31/2007 [facility] House Lab Leukocytes NEG Neg (607)- - Urine Nitrites NEG Neg Urine pH 9 High 5-6 Total Protein, Urine NEG Neg Urine Glucose NORM Norm Urine Ketones NEG Neg Urobilinogen NORM Norm Urine Bilirubin NEG Neg Urine Blood NEG Neg Specific [place] NA Low 1.01-1.02 Comprehensive Metabolic 01/31/2007 [facility] Glucose 85 mg /dL 70-100 [phone] BUN 20 mg/dL High 4-18 Creatinine, Serum 1.0 mg/dL 0.5-1.2 Sodium 142 mmol/L 136-146 Potassium 4.4 mmol/L 3.5-5.3 Chloride 104 mmol/L 98-110 Carbon Dioxide 24 mmol/L 20-32 Albumin 4.3 g/dL 3.5-4.7 Protein, Total 6.9 g/dL 6.4-8.2 Calcium 9.6 mg/dL 8.4-10.4 Alkaline Phosphatase 71 U/L 10-118 Sgot (Ast) 28 U/L 3-40 SGPT (Alt) 25 U/L 7-50 Bilirubin, Total 0.30 mg/dL 0.30-1.20 Laboratory test 05/24/2006 [facility] Erythrocyte Sed 1 MM/HR 0-30 finding [phone] Rate CBC With 05/24/2006 [facility] White Blood 4.5 CUMM Low 4.8-10.8 Electronic Diff [phone] Count Abs Basophils 0 0-0.2 Abs Eosinophils [...] WDTH 12 % 10.5-15 Laboratory test 05/24/2006 [facility] C Reactive < 0.5 mg/dL Less Than finding [phone] Protein 0.5 Hemoccult 03/01/2006 In House Lab [...] neg Neg Urine Blood neg Neg Specific [place] na Low 1.01-1.02 Laboratory test 08/15/2005 [facility] CK, Total 63 U/L 29-229 finding [phone] TSH (Thyrotropin) 2.230 uIU/ml 0.350-5.500 T-4 Free 1.1 ng/dL 0.8-1.8 Magnesium 2.4 mg/dL 1.7-2.7 Vitamin B-12 468 pg/mL 92 GFR (Calculated) 60 93 Comprehensive Metabolic 08/15/2005 [facility] Glucose 83 mg /dL 70-100 [phone] BUN 20 mg/dL High 4-18 Creatinine, Serum [...] #3 NEG 02/05 Neg Laboratory test 08/09/2004 [facility] Thinprep W/HPV REC'D- SEE finding [phone] JASON/Acus/LGSIL IMAGE Urine DIP 08/09/2004 [facility] House Lab Leukocytes NEG Neg (607)- - Urine Nitrites NEG Neg Urine pH 5 5-6 Total Protein, Urine NEG Neg Urine Glucose NORM Norm Urine Ketones NEG Neg Urobolinogen NORM Norm Urine Bilirubin NEG Neg Urine Blood NEG Neg Specific [place] NA Low 1.01-1.02 Hemoccult 03/04/2004 In House Lab Stool-Occult Blood #1 NEG Neg (607)- - Stool-Occult Blood #2 NEG Neg Stool-Occult Blood #3 NEG Neg Laboratory test 08/05/2003 [facility] Thin Layer Pap REC'D-SEE finding [phone] W/Reflex To HPV IMAGE For ASCUS Urine DIP 08/05/2003 In House Lab Leukocytes NEG Neg (607)- - Urine Nitrites NEG Neg Urine pH 5 5-6 Total Protein, Urine NL Neg Urine Glucose NL Norm Urine Ketones NL Neg Urobolinogen NL Norm Urine Bilirubin NL Neg Urine Blood NL Neg Specific [place] N/A Low 1.01-1.02 Laboratory test finding 03/15/2003 [facility] [place] [place]-2 Culture Stool PRELIMINARY (607)- - Stool-Giardia Lamblia Antigen NEGATIVE Hemoccult 12/16/2002 In House Lab Stool-Occult Blood #1 NEG Neg (607)- - Stool-Occult Blood #2 NEG Neg Stool-Occult Blood #3 NEG Neg Comp Metabolic 12/10/2002 [facility] Anion Gap 9.0 mmol/L 2-11 94 Panel [phone] Albumin/Globulin Ratio 1.7 1-3 Albumin 4.0 GM/DL [...] NEG Neg Urine Blood NEG Neg Specific [place] #2 DIP OK High 1.01-1.02 Laboratory test 08/06/2002 [facility] Pap Smear REC'D -SEE IMAGE finding [phone] Urine DIP 08/06/2002 In House Lab Leukocytes NEG Neg (607)- - Urine Nitrites POS Neg Urine pH 5 5-6 Total Protein, Urine NEG Neg Urine Glucose NORM Norm Urine Ketones NEG Neg Urobolinogen NORM Norm Urine Bilirubin NGE Neg Urine Blood NEG Neg Specific [place] NA Low 1.01-1.02 Lipid Profile 09/23/2001 [facility] Cholesterol, 177 mg/dL 120.0 - 95 [phone] Total 200.0 Chol/HDL Cholesterol 3.6 96 HDL [...] NEG Neg Urine Blood NEG Neg Specific [place] N/A Low 1.01-1.02 1 [facility] Severe Sepsis and Septic Shock Management Bundle Measure requires all lactic acids initially measuring >2.0 mmol/L be repeated. 2 [facility] Severe Sepsis and Septic Shock Management Bundle Measure requires all lactic acids initially measuring >2.0 mmol/L be repeated. 3 Standard intensity warfarin therapeutic range: 2.0-3.0 High intensity warfarin therapeutic range: 2.5-3.5 4 Troponin-I testing on Plasma Separator Tubes (PST) has a known false positive rate of 0.20-0.40%. All positive troponins reflex immediately to secondary confirmatory testing. Using the LiveHive DxI 800 Access Immunoassay systems, the 99th percentile upper [...] may interfere with detection of blood. 7 [employer]ving: [id number] SEE RESULT BELOW Name: MARGUERITE GOMEZ : [address]: Paulette Swan DO Acct: [id number] Unit: [id number] AGE: 73 Location: [place] [address] Re10/23/18 Dis: 10/24/18 SEX: F Status: DIS IN SPEC: [id number] JOSSIE: 10/22/[address]: Melissa SESAY REQ: [id number] RECD: 10/22/18 STATUS: CHARAN [facility] DR: Juan Smith MD _ SOURCE: BLOOD,VENO SPDESC: ORDERED: Blood Cult Procedure Result Reported Site Aerobic Culture Bottle Final 10/27/18948 ML No Growth Day 5 Anaerobic Culture Bottle Final 10/27/18948 ML No Growth Day 5 * ML - Main Lab . END OF REPORT DEPARTMENT OF PATHOLOGY, [address] [place] [address] Bruce Waite M.D. Director ESE # [id number] SEE RESULT BELOW Name: MARGUERITE GOMEZ : [address]: Neeru Santana MD Acct: [id number] Unit: [id number] AGE: 73 Location: ED Re10/14/18 SEX: F Status: DEP ER SPEC: [id number] JOSSIE: 10/14/[address]: Neeru Santana MD REQ: [id number] RECD: 10/14/18 STATUS: CHARAN KOH[facility] DR: Juan Neil MD _ SOURCE: BLOOD,VENO SPDESC: ORDERED: Blood Cult Procedure Result Reported Site Aerobic Culture Bottle Final 10/19/182113 ML No Growth Day 5 Anaerobic Culture Bottle Final 10/19/182113 ML No Growth Day 5 * ML - Main Lab . END OF REPORT DEPARTMENT OF PATHOLOGY, [address] [place] [address] Bruec Waite M.D. Director [facility] # [id number] *Ascorbic acid is present which may [...] 5 Kidney failure <15 (or dialysis) 13 [facility] Severe Sepsis and Septic Shock Management Bundle [...] 145 to 180 Deficient Range <145 16 [id number] Warning: A positive result is not useful for establishing a diagnosis of syphilis. In most situations, such a result may reflect a prior treated infection; a negative result can exclude a diagnosis of syphilis except for incubating or early primary disease. 18 Normal Range 180 to 914 Indeterminate Range 145 to 180 Deficient Range <145 19 [id number] 20 Warning: A positive result is not useful for establishing a diagnosis of syphilis. In most situations, such a result may reflect a prior treated infection; a negative result can exclude a diagnosis of syphilis except for incubating or early primary disease. 21 [facility] Severe Sepsis and Septic Shock Management Bundle [...] 0.03 ng/mL Not supportive of diagnosis of [place] 0.03 - 0.50 ng/mL Indeterminate: suggest serial studies if clinically indicated. Greater than 0.5 ng/mL Consistent with diagnosis of OH 25 Desirable <150 Borderline high 150-199 High [...] normal population are 25-80 Test Performed by: [facility] [address] [address] Shipping Hand: Florencio Ayala III, M.D. R 43 FASTING 44 A metabolite of Naproxen, O-desmethylnaproxen, has been shown to interfere with the Jenkelle- method for measuring total bilirubin. Samples from [...] 48 FASTING 49 ---- RUN DATE: 05/25/11 [facility] NMI LIVE PAGE 1 RUN TIME: 1131 Specimen Inquiry RUN USER: INTERFACE -- Name: MARGUERITE GOMEZ Status: REG REF Re05/24/11 Age/Sex: 66/F Unit#: [id number] Location: [facility]. : 44 -- Specimen: [id number] SOUT Spec Date: 05/24/[address] [facility] [address]: Juan chacon MD Spec Type: CYTOLOGY [...] was evaluated with the assistance of the DioGenixPrep Pap Test Imaging System. However, due to technical or cytologic issues, the imaging could not be completed. Comprehensive manual rescreening by a Safety Council Director was performed. The Pap Smear is a [...] years. Final Interpretation electronically signed by: Major HARRISON([facility]) 05/25/11 113 1 -- -- DEPARTMENT OF PATHOLOGY, [address] [place] [address] [facility] Permit #[id number] Bruce Waite M.D. Director Bennett Car M.D. Accordion Maker krystal -- 50 CHOLESTEROL INTERPRETATION: Desirable: Less [...] has been shown to interfere with the Jendrassik-Crocker method for measuring total bilirubin. Samples from [...] change was based on recommendations from the [place] [employer]. 58 A metabolite of Naproxen, [...] Risk: LDL Greater than 189 MG/DL 63 [employer] DEPARTMENT OF PATHOLOGY or Extension 5583 FOOD COUNSELOR CYTOLOGY REPORT PATIENT: MARGUERITE GOMEZ : 1945 AGE: 65 Y SEX: F ACCT: [id number] PROCEDURE DATE: 04/20/2010 DATE RECEIVED: 04/21/2010 REQUESTING PHYSICIAN: JUAN NEIL MD LOCATION: [facility] Case No. [id number] PATIENT DATA: [id number] SPECIMEN SUBMITTED: * * (HPVII) THIN PREP [...] are examined with an FDA-approved location-guidance system (75248). Performed @ [facility] [address] [place] [address] 64 CHOL/HDL Risk Ratio Levels MALE FEMALE [...] 5.0 3 X Average 8.0 6.1 73 [employer] DEPARTMENT OF PATHOLOGY or Extension 8583 FOOD COUNSELOR CYTOLOGY REPORT PATIENT: MARGUERITE GOMEZ : 1945 AGE: 64 Y SEX: F ACCT: [id number] PROCEDURE DATE: 03/31/2009 DATE RECEIVED: 04/01/2009 REQUESTING PHYSICIAN: JUAN NEIL MD LOCATION: [facility] Case No. [id number] PATIENT DATA: [id number] SPECIMEN SUBMITTED: * * (HPVII) THIN PREP [...] are examined with an FDA-approved location-guidance system (26252). Performed @ [facility] [address] [place] [address] 28890 "" 74 mL/min/1.73m2 . Normal Function or [...] be a threshold for optimal health. Balta BW. J Nutr. 2005 Jul;135(2):317-22. 80 Results for this test are for research purposes only by the assay's entry rep. The performance characteristics of this product have not been established. Results should not be used as a diagnostic procedure without confirmation of the diagnosis by another medically established diagnostic product or procedure. 81 Results for this test are for research purposes only by the assay's entry rep. The performance characteristics of this product have [...] that are excreted by the kidneys. 83 [employer] DEPARTMENT OF PATHOLOGY or Extension 3085 FOOD COUNSELOR CYTOLOGY REPORT PATIENT: MARGUERITE GOMEZ : 1945 AGE: 62 Y SEX: F ACCT: [id number] PROCEDURE DATE: 02/03/2008 DATE RECEIVED: 02/04/2008 REQUESTING PHYSICIAN: JOCELYNN MCCORMICK MD LOCATION: [facility] Case No. [id number] PATIENT DATA: 04851 SPECIMEN SUBMITTED: * * (HPVII) THIN PREP [...] are examined with an FDA-approved location-guidance system (04348). Performed @ [facility] [address] [place] [address] 75 Cholesterol Risk Levels (NIH) Recommended: under 200 [...] Equivocal 0.89 - 0.99 Positive >0.99 91 [employer] DEPARTMENT OF PATHOLOGY or Extension 4462 FOOD COUNSELOR CYTOLOGY REPORT PATIENT: MARGUERITE GOMEZ : 1945 AGE: 61 Y SEX: F ACCT: [id number] PROCEDURE DATE: 01/31/2007 DATE RECEIVED: 02/01/2007 REQUESTING PHYSICIAN: JOCELYNN MCCORMICK MD LOCATION: [facility] Case No. [id number] PATIENT DATA: 53595 SPECIMEN SUBMITTED: Source Code: HPVII Body Site [...] are examined with an FDA-approved location-guidance system (85962). Performed @ [facility] [employer] [address] [place] [address] 92 Greater than or equal to 211 [...] . Procedures Date Code Description Status 10/21/2012 95505 I&D Of Abscess Completed 05/24/2011 18233 EKG, at Least 12 Leads w/Interpretation and Report Completed 06/11/2009 [id number] Colonoscopy Completed 02/03/2008 98771 Audiometric Screening Test, Pure Tone, Air Only Completed 01/28/2007 22458 EKG, at Least 12 Leads w/Interpretation and Report Completed 08/09/2004 39085 EKG, at Least 12 Leads w/Interpretation and Report Completed 08/09/2004 48080 EKG, at Least 12 Leads w/Interpretation and Report Completed 01/29/2003 37191 Nail Avulsion Completed Encounters Type Date Location Provider Dx Diagnosis Office Visit 05/13/2018 Main Office Mary Soto00.00 Encntr for general 9:30a Tiana RXochitl. adult medical exam w/o abnormal findings Z23 Encounter for immunization Office Visit 05/21/2017 11:15a Main Office Mary Soto00.00 Encbassemr noé Montiel RTanvi general adult medical exam w/o abnormal findings Z00.00 Encntr for general adult medical exam w/o abnormal findings R42 Dizziness and giddiness Office Visit 04/27/2017 12:15p Main Office Juan Neil F02.80 Dementia in ot M.D., R.D. diseases classd elswhr w/o behavrl disturb Office Visit 01/08/2017 2:30p Main Office Juan Neil, R41.3 Other amnesia Tiana, R.D. Office Visit 08/30/2016 11:15a Main Office Juan Neil, M25.561 Pain in right M.DIban, R.D. knee Office Visit 05/19/2016 10:45a Main Office uJan Neil, Z00.00 Encntr for Tiana, R.D. general adult medical exam w/o abnormal findings M85.9 Disorder of bone density and structure, unspecified R41.3 Other amnesia Office Visit 02/08/2016 11:45a Main Office Juan Neil, R55 Syncope and Parvin.Jennifer, R.D. collapse S01.01xD Laceration without foreign body of scalp, subs encntr Z23 Encounter for immunization Office Visit 12/08/2015 11:30a Main Office Juan Neil, S01.01xD Laceration Parvin.Jennifer, R.D. without foreign body of scalp, subs encntr Office Visit 12/01/2015 10:00a Main Office Juan Neil, R55 Syncope and Tiana, R.D. collapse S01.81xA Laceration w/o foreign body of oth part of head, init encntr Office Visit 05/26/2015 2:15p Main Office Juan Neil, Z00.00 Encntr for Tiana, R.D. general adult medical exam w/o abnormal findings Z13.1 Encounter for screening for diabetes mellitus Z13.220 Encounter for screening for lipoid disorders Office Visit 08/24/2014 1:30p Main Office Carmen Patel, 465.9 URI Upper [employer] TECHNICIAN-C Respiratory Infections Acute Unspec Sites Office Visit 04/23/2014 11:00a Main Office Juan Neil V70.0 Examination General M.D., R.D. Medical Routine AT Health Care Facility 564.1 Irritable Bowel Syndrome Office Visit 04/21/2013 9:30a Main Office Juan Neil V70.0 Examination General M.D., R.D. Medical Routine AT Health Care Facility 272.2 Hyperlipidemia Mixed 733.90 Bone & Cartilage Disorder Unspec 715.94 Osteoarthrosis Unspec Genlzd Or Localzd Hand Office Visit 04/08/2013 9:45a Main Office Regla Nichole 461.8 Sinusitis Acute Storm, [employer] TECHNICIAN-C Other Office Visit 11/20/2012 10:15a Main Office Juan Neil, 389.9 Hearing Loss Unspec M.D., R.D. Office Visit 10/14/2012 11:45a Main Office Carmen Patel, 782.9 Skin & Integumentary [employer] TECHNICIAN-C Tissue Other Symptoms Office Visit 10/09/2012 2:30p Main Office Carmen Patel, 782.9 Skin & Integumentary [employer] TECHNICIAN-C Tissue Other Symptoms Office Visit 04/25/2012 10:45a Main Office Juan Neil, 733.90 Bone & Cartilage M.D., R.D. Disorder Unspec Office Visit 03/27/2012 8:30a Main Office Juan Neil, V70.0 Examination General M.D., R.D. Medical Routine AT Health Care Facility V72.31 Routine Military Source Operations Officer Examination 272.2 Hyperlipidemia Mixed 733.90 Bone & Cartilage Disorder Unspec 365.9 Glaucoma Unspec Office Visit 01/11/2012 10:30a Main Office Juan Neil M.D., 995.3 Allergy Unspec R.D. 381.01 Otitis Media Serous Acute Office Visit 05/24/2011 8:30a Main Office Juan Neil, V70.0 Examination General M.D., R.D. Medical Routine AT Health Care Facility V72.31 Routine Military Source Operations Officer Examination 272.2 Hyperlipidemia Mixed 365.9 Glaucoma Unspec 780.4 Dizziness & Giddiness 733.90 Bone & Cartilage Disorder Unspec Office Visit 04/20/2010 8:30a Main Office Juan Neil, 272.2 Hyperlipidemia Mixed M.D., R.D. V72.31 Routine Military Source Operations Officer Examination V76.51 Special Screening For Malignant Neoplasms Colon V70.0 Examination General Medical Routine AT Health Care Facility 787.60 Full Incontinence Of Feces 702.19 Seborrheic Keratosis Other Office Visit 10/20/2009 9:00a Main Office Juan Neil, 616.10 Vaginitis & M.D., R.D. Vulvovaginitis Unspec Office Visit 10/06/2009 9:45a Main Office Juan Neil, 272.2 Hyperlipidemia Mixed Parvin.Jennifer, R.D. Office Visit 06/08/2009 2:30p Main Office Joeclynn Brunson 724.5 Backache Unspec Tiana Mccormick Office Visit 03/31/2009 8:15a Main Office Juan Neil, 715.90 Osteoarthrosis M.Jennifer, R.D. Unspec Genlzd Or Localzd Site Unspec 365.9 Glaucoma Unspec 530.81 Esophageal Reflux V76.51 Special Screening For Malignant Neoplasms Colon 272.2 Hyperlipidemia Mixed V04.81 Need For Prophylactic Vaccination & Inoculation/Influenza V72.31 Routine Military Source Operations Officer Examination V03.82 Streptococcus Pneumoniae Vaccination Spec Other Office Visit 03/11/2008 12:30p Main Office Jocelynn Mccormick, 365.9 Glaucoma Unspec M.DIban V04.81 Need For Prophylactic Vaccination & Inoculation/Influenza Office Visit 02/03/2008 9:00a Main Office Jocelynn Brunson V72.31 Routine Military Source Operations Officer Tiana Mccormick Examination 553.3 Hernia Diaphragmatic 715.90 [...] Office Regla Nichole 530.81 Esophageal Reflux Storm, [employer] TECHNICIAN-C Office Visit 01/31/2007 9:00a Main Office Jocelynn Brunson V72.31 Routine Military Source Operations Officer Tiana Mccormick Examination 733.6 Tietzes Disease 729.1 [...] 12:00p Main Office Jocelynn Brunson V72.31 Routine Military Source Operations Officer Blegen MTanvi Examination 733.90 Bone & Cartilage Disorder Unspec 729.1 Myalgia & Myositis Unspec V06.1 Lwvprquycr-Udgcmue-Vucwciao Combined (DTaP) Office Visit 04/05/2005 11:45a Main Office Rex Elliott, 786.50 Pain Chest Unspec M.D. Office Visit 08/09/2004 1:00p Main Office Carmen Israel V72.31 Routine Military Source Operations Officer M.D. Examination V70.0 Examination General Medical Routine AT [...] Facility Office Visit 06/16/2003 2:45p Main Office Cramen Israel V58.3 Surgical Dressings M.D. & Sutures Encounter Office Visit 05/22/2003 11:45a Main Office Joseph Morfin, 882.0 Open Wound Hand M.D. Except Finger(S) W/O Complication E906.3 Bite Other Animal Except Arthropod Office Visit 04/08/2003 10:00a Main Office Carmen Israel, 564.1 Irritable Bowel M.D. Syndrome Office Visit 08/06/2002 8:00a Main Office Carmen Israel V72.3 Examination M.D. Gynecological V70.0 Examination General Medical Routine AT [facility] 726.11 Tendinitis Calcifying Shoulder Office Visit 09/20/2001 2:15p Main Office Carmen Israel, V70.0 Examination General M.D. Medical Routine AT [facility]
--- OUTSIDE RECORDS SUMMARY | 2018-11-14 11:26 | XMS REPORT | Continuity of Care Document ---
:1945 External Reference #:[id number] Author Name Juan Neil M.D., R.D. Address [address] [place] [address] Care Team Providers Name Role Phone Juan Neil M.D., RIbanDIban Care Team Information Impress Associate Unavailable Payers Date Identification Numbers Payment Provider Subscriber Effective: 2016 Policy Number: [id number] Medicare - Bswny d Marguerite Major Jason PayID: [id number] [address] [place] [address] Effective: 2004 Policy Number: [facility](Josefina Gomez [id number] Group Name: Noé [address] PayID: [id number] [place] [address] Advance Directives Type Date Description Status Comment Other Directive 10/07/2014 Health Care Proxy Current and Verified Other Directive 10/07/2014 Living Will Current and Verified Problems Active Problems Provider Date Mixed hyperlipidemia Lab and Office Services Onset: 05/23/2011 Osteoarthritis Jaun Neil M.D., R.D. Onset: 05/23/2011 Gastroesophageal reflux [...] 1 by mouth three 21caps L03.116 Shawnti RIban 10/28/2018 500mg times a day ZEKE [place] Capsules Melatonin 1 by mouth every 90tabs Juan Neil, 07/01/2018 3mg Tablets night at bedtime as Tiana, R.D. needed sleep Risperdal 1 by mouth twice a 30tabs Juan Neil, 06/17/2018 0.5mg day M.DIban, R.D. Tablets Alprazolam Discontinue 1tabs Juan Neil, 06/08/2018 0.5mg Medication M.DIban, R.D. Tablets Benadryl Allergy Discontinue 1caps Juan Neil, 05/30/2018 25mg Medication M.DIban, R.D. Capsules Calcium + D3 take one tablet by 90tabs Juan Neil, 05/30/2018 mouth qd M.DIban, R.D. [id number] Tablets Aspir-81 take one tablet by 90tabs Juan Neil, 03/27/2012 81mg Tablets mouth daily Tiana, RTanvi Kaiser 1 po qd 90caps Juan Neil, 05/24/2011 Capsules Tiana RTanvi Combigan bid With DR. Gerardo Brunson 02/03/2008 0.2/0.5% for left eye BlegenTiana Solution History Medications Alprazolam take one by mouth 30tabs Juan Neil, 11/09/2017 - 0.25mg once daily as Tiana, R.DIban 06/08/2018 Tablets needed for anxiety Melatonin Juan Neil, 05/26/2015 - Capsules Tiana, R.DIban 05/21/2017 Calcium + D3 take one tablet Juan Neil, 04/23/2014 - Tablets by mouth bid Tiana, R.DIban 05/30/2018 Nystatin apply to affected 30gm Juan Neil, 07/16/2013 - [id number]/GM area bid - tid Tiana, R.DIban 04/23/2014 Cream prn Satnam Mag Zinc 1 po qd Juan Neil, 04/21/2013 - Tablets Tiana, R.D. 04/23/2014 Benadryl take one tablet Juan Neil, 04/21/2013 - 25mg Capsules by mouth at Parvin.Jennifer, R.DIban 05/30/2018 bedtime as needed for allergies Amoxicillin 1 po bid for 20tabs 461.8 Shawnti Dayanara 04/08/2013 - 875mg sinus infection Storm, SAND FILLER-C 04/18/2013 Tablets Prednisone take 3 tablets 30tabs [...] Juan Neil, 05/12/2012 - MTanvi, R.D. 04/21/2013 [id number] Tablets Vitamin B-12 1 po qd Juan [...] qweek Omeprazole One Pill By Mouth 30caps Rgela Nichole 02/05/2007 - 20mg Daily Before Storm, SAND FILLER-C 09/10/2007 Capsules First Meal Of The Day [...] Jocelynn Brunson 08/24/2005 - 500mg Days Blegen, M.DIban 10/31/2005 Capsules Fish Oil Jocelynn Brunson 08/15/2005 - Caps Candicegen, M.DIban 01/31/2007 Aspirin 1 po qd Jocelynn Brunson 08/15/2005 - 325mg Tablets Candicegen, M.DIban 03/31/2009 Glucosamine And 1350 mg bid Juan Neil, 08/15/2005 - Chondroitin M.Jennifer, R.D. 04/21/2013 Tablets Gingko Biloba Jocelynn Brunson 08/15/2005 - Caplets Anny, M.DIban 05/24/2011 Potassium Chloride Jocelynn Brunson 08/15/2005 [...] CPT Code Status Date Vaccine Lot # [id number] Given 05/13/2018 Influenza Vaccine High Dose PF [id number] 85510 Given 02/08/2016 Influenza Vaccine High Dose PF [id number] 44195 Given 03/10/2015 Influenza Vaccine High Dose PF [id number] 31163 Given 07/09/2014 Prevnar-13 Pneumococcal Conjugate Vaccine [id number] 78519 Given 03/19/2014 Influenza Vaccine High Dose PF [id number] 88530 Given 03/20/2013 Influenza Vaccine High Dose PF [id number] 04568 Given 03/20/2012 Influenza Vaccine High Dose PF [id number] 79027 Given 04/12/2011 Influenza Vaccine-Preservative Free 3 Yrs And [id number] Above 87016 Given 04/06/2010 Influenza Vaccine-Preservative Free 3 Yrs And [id number] Above 00034 Given 05/25/2009 H1N1 Influenza Vaccine [id number] 80312 Given 05/25/2009 H1N1 Immunization Administration, Including Counseling 37726 Given 03/31/2009 Pneumovax 23 (PPSV23) 65+ years or high risk 2 to [id number] 64 year old 01911 Given 03/31/2009 Influenza Vaccine-Preservative Free 3 Yrs And [id number] Above 81998 Given 05/26/2008 Zoster Vaccine [id number] 66290 Given 03/11/2008 Influenza Virus Vaccine, 3 Yrs And Above [id number] 05080 Given 03/29/2007 Influenza Virus Vaccine, 3 Yrs And Above [id number] 33879 Given 08/15/2005 Tdap (Adacel) [id number] 96615 Given 03/28/2005 Influenza Virus Vaccine, 3 Yrs And Above 91228 Given 04/01/2003 Influenza Virus Vaccine, 3 Yrs And Above 64343 Given 04/01/2003 Influenza Virus Vaccine, 3 Yrs And Above 55105 Given 2002 Influenza Virus Vaccine, 3 Yrs And Above 01060 Given 04/15/2001 Influenza Virus Vaccine, 3 Yrs And Above 83969 Given 04/01/1999 Influenza Virus Vaccine, 3 Yrs And Above 12808 Given 04/08/1998 Influenza Virus Vaccine 83683 Given 03/11/1997 Influenza Virus Vaccine 28748 Given 08/06/1996 Tetanus 59770 Given 03/21/1996 Influenza Virus Vaccine 52909 Given 03/19/1995 Influenza Virus Vaccine 52865 Given 03/09/1994 Influenza Virus Vaccine 77424 Given 03/23/1993 Influenza Virus Vaccine Vital Signs [...] Result H/L Range Note Laboratory test 10/22/2018 [facility] Lactic Acid 1.3 mmol/L N 0.5-2.0 1 finding [phone] Laboratory test 10/22/2018 [facility] Lactic Acid 1.4 mmol/L N 0.5-2.0 2 finding [phone] Inr/Protime 10/22/2018 [facility] Inr 1.14 High 0.82-1.09 3 [phone] Laboratory test 10/22/2018 [facility] Partial 26.4 seconds N 26.0-36.3 finding [phone] Thrombo Time PTT Troponin-I (TnI) 0.01 ng/mL <0.04 4 Comp Metabolic 10/22/2018 [facility] Sodium 132 mmol/ L Low 135-145 Panel [phone] Potassium 4.5 mmol/L N 3.5-5.0 Chloride 100 [...] Egfr 80.2 >60 5 Laboratory test 10/22/2018 [facility] C Reactive 28.21 mg/L High <8.01 finding [phone] Protein CBC Auto Diff 10/22/2018 [facility] White Blood 7.3 N 3.5-10.8 [phone] Count 10^3/uL Red Blood Count 3.70 10^6/uL [...] Blood Cells % 0.1 Urinalysis Profile 10/22/2018 [facility] Urine Color Yellow [phone] Urine Appearance Clear Urine Specific Paxton 1.018 N 1.010-1.030 Urine pH 6.0 N 5-9 Urine Urobilinogen Negative Negative Urine Ketones Negative Negative Urine Protein Negative Negative Urine Leukocytes Negative Negative Urine Blood Negative Negative * * Abnormal Negative 6 Urine Nitrite Negative Negative Urine Bilirubin Negative Negative Urine Glucose Negative Negative Influenza A & B 10/22/2018 [facility] Influenza A NEGATIVE Negative 7 Request [phone] Molecular Influenza B Molecular NEGATIVE Negative Laboratory test 10/22/2018 [facility] Blood Culture SEE RESULT 8 finding [phone] BELOW Laboratory test 10/14/2018 [facility] Blood Culture SEE RESULT 9 finding [phone] BELOW Urinalysis Profile 10/14/2018 [facility] Urine Color Straw [phone] Urine Appearance Clear Urine Specific Paxton 1.009 Low 1.010-1.030 Urine pH 7.0 N 5-9 Urine Urobilinogen Negative Negative Urine Ketones Negative Negative Urine Protein Negative Negative Urine Leukocytes Negative Negative Urine Blood Negative Negative * * Abnormal Negative 10 Urine Nitrite Negative Negative Urine Bilirubin Negative Negative Urine Glucose Negative Negative Laboratory test 10/14/2018 [facility] Partial 28.3 seconds N 26.0-36.3 finding [phone] Thrombo Time PTT Inr/Protime 10/14/2018 [facility] Inr 0.96 N 0.82- 1.09 11 [phone] CBC Auto Diff 10/14/2018 [facility] White Blood 6.8 10^3/uL N 3.5-10.8 [phone] Count Red Blood Count 4.02 10^6/uL N [...] Blood Cells % 0.0 Laboratory test 10/14/2018 [facility] C Reactive 13.26 mg/L High <8.01 finding [phone] Protein Comp Metabolic 10/14/2018 [facility] Sodium 137 mmol/ L N 135-145 Panel [phone] Potassium 4.1 mmol/L N 3.5-5.0 Chloride 102 [...] Egfr 111.8 >60 12 Laboratory test 10/14/2018 [facility] Lactic Acid 1.3 mmol/L N 0.5-2.0 13 finding [phone] Comp Metabolic 01/08/2017 [facility] Sodium 140 mmol/ L N 133-145 Panel [phone] Potassium 5.1 mmol/L High 3.5-5.0 Chloride 103 [...] 93.4 N >60 14 Laboratory test 01/08/2017 [facility] Vitamin B12 334 pg/mL N 180-914 15 finding [phone] TSH (Thyroid Stim Horm) 1.83 mcIU/mL N 0.34-5.60 16 Syphillis Igg W/Reflex RPR Nonreactive N Nonreactive 17 Laboratory test 05/19/2016 [facility] Vitamin B12 303 pg/mL N 180-914 18 finding [phone] TSH (Thyroid Stim Horm) 2.15 mcIU/mL N 0.34-5.60 19 Syphillis Igg W/Reflex RPR Nonreactive N Nonreactive 20 CBC Auto 11/28/2015 [facility] White Blood 11.1 10^3/ uL High 3.5-10.8 Diff [phone] Count Red Blood Count 4.39 10^6/uL N [...] Cells % 0 N Laboratory test 11/28/2015 [facility] Lactic Acid 1.5 mmol/L N 0.5-2.0 21 finding [phone] Urinalysis 11/28/2015 [facility] Urine Color Yellow N Profile [phone] Urine Appearance Clear N Urine Specific Paxton 1.013 N 1.010-1.030 Urine pH 5.0 N 5-9 Urine Urobilinogen Negative N Negative Urine Ketones Trace Abnormal Negative Urine Protein Negative N Negative Urine Leukocytes Negative N Negative Urine Blood Negative N Negative * * Abnormal Negative 22 Urine Nitrite Negative N Negative Urine Bilirubin Negative N Negative Urine Glucose Negative N Negative Comp Metabolic Panel 11/28/2015 [facility] Sodium 139 mmol/L N 133-145 [phone] Potassium 3.9 mmol/L N 3.5-5.0 Chloride 105 [...] 101.1 N >60 23 Laboratory test 11/28/2015 [facility] Magnesium 2.1 mg/dL N 1.9-2.7 finding [phone] Troponin I 0.00 ng/mL N <0.03 24 TSH (Thyroid Stimulating Horm) 2.34 ?IU/mL N 0.34-5.60 Lipid Profile 05/26/2015 [facility] Triglycerides 156 mg/dL N 25 (Trig/Chol/HDL) [phone] Cholesterol 214 mg/dL N 26 HDL Cholesterol 55.5 mg/dL N 27 LDL Cholesterol 127 mg/dL N 28 Comp Metabolic Panel 05/26/2015 [facility] Sodium 139 mmol/L N 133-145 [phone] Potassium 3.9 mmol/L N 3.5-5.0 Chloride 102 [...] 5 5-6 Urine Blood neg Neg Specific Paxton 1.020 1.01-1.02 Urine Ketones neg Neg Urine Bilirubin neg Neg Urine Glucose norm Norm CBC Auto Diff 04/16/2014 [facility] White Blood 6.6 10^3/uL N 4.8-10.8 [phone] Count Red Blood Count 4.67 10^6/uL N [...] Cells % 0 N Lipid Profile 04/16/2014 [facility] Triglycerides 92 mg/dL N 30 (Trig/Chol/HDL) [phone] Cholesterol 263 mg/dL N 31 HDL Cholesterol 60.9 mg/dL N 32 LDL Cholesterol 184 mg/dL N 33 Comp Metabolic Panel 04/16/2014 [facility] Sodium 140 mmol/L N 133-145 [phone] Potassium 4.6 mmol/L N 3.5-5.0 34 Chloride [...] N >60 35 Comp Metabolic Panel 04/21/2013 [facility] Sodium 137 mmol/L 133-145 [phone] Potassium 4.1 mmol/L 3.5-5.0 Chloride 100 mmol/L [...] Egfr 106.7 >60 36 Laboratory test 04/21/2013 [facility] Creatine Kinase 54 U/L 0-200 37 finding [phone] Lipid Profile 04/21/2013 [facility] Triglycerides 48 mg/dL 40-200 (Trig/Chol/HDL) [phone] Cholesterol 203 mg/dL High Less than 200 HDL Cholesterol 63 mg/dL High 40-60 38 Cholesterol/HDL Ratio 3.2 Average 1-4.44 LDL Cholesterol 130.4 High Less Than 100 39 CBC With 04/21/2013 [facility] White Blood 8.5 10^3/ uL 4.8-10.8 Manual Diff [phone] Count Red Blood Count 4.47 10^6/uL 4.0-5.4 [...] RBC Morphology Normal Normal Laboratory test 04/21/2013 [facility] Vitamin B12 656 pg/mL 180-914 40 finding [phone] Urine DIP 04/21/2013 In House Lab Leukocytes neg Neg (607)- - Urine Nitrites negd Neg Urine pH 8 High 5-6 Total Protein, Urine neg Neg Urine Glucose norm Norm Urine Ketones neg Neg Urobilinogen norm Norm Urine Bilirubin neg Neg Urine Blood neg Neg Specific Paxton 1.015 1.01-1.02 Laboratory test 01/13/2013 [facility] Blood Urea 15 mg/dL 6-24 finding [phone] Nitrogen Creatinine 01/13/2013 [facility] Creatinine 0.70 mg/ dL 0.50-1.40 [phone] Egfr Non- 83.2 >60 Egfr 107.0 >60 41 Vitamin D, 25 04/25/2012 [facility] 25-Hydroxy Vitamin <4.0 ng/mL Hydroxy [phone] D2 25-Hydroxy Vitamin D3 38 ng/mL 25-Hydroxy Vitamin D Total 38 ng/mL 42 Urine DIP 03/27/2012 In House Lab Leukocytes NEG Neg (607)- - Urine Nitrites NEG Neg Urine pH 5 5-6 Total Protein, Urine NEG Neg Urine Glucose NORM Norm Urine Ketones NEG Neg Urobilinogen NORM Norm Urine Bilirubin NEG Neg Urine Blood NEG Neg Specific Paxton NA Low 1.01-1.02 Laboratory test 03/20/2012 [facility] Creatine 53 U/ L 0-200 43 finding [phone] Kinase Comp Metabolic 03/20/2012 [facility] Sodium 140 133-145 Panel [phone] mmol/L Potassium 4.2 mmol/L 3.5-5.0 Chloride 106 [...] Egfr 107.3 >60 45 Lipid Profile 03/20/2012 [facility] Triglycerides 62 mg/dL 40-200 (Trig/Chol/HDL) [phone] Cholesterol 193 mg/dL Less than 200 46 HDL Cholesterol 60 mg/dL 40-60 47 Cholesterol/HDL Ratio 3.2 AVERAGE 1-4.44 LDL Cholesterol 120.6 mg/dL High Less Than 100 Laboratory test 03/20/2012 [facility] TSH (Thyroid 2.86 0.34-5.60 48 finding [phone] Stimulating MIU/ML Horm) Laboratory test 05/24/2011 [facility] TSH 2.00 0.34-5.60 finding [phone] MIU/ML Vitamin B12 485 pg/mL 180-914 Urine DIP 05/24/2011 In House Lab Leukocytes NEG Neg (607)- - Urine Nitrites NEG Neg Urine pH 5-6 5-6 Total Protein, Urine NEG Neg Urine Glucose NORM Norm Urine Ketones NEG Neg Urobilinogen NORM Norm Urine Bilirubin NEG Neg Urine Blood NEG Neg Specific Paxton N/A Low 1.01-1.02 Laboratory 05/24/2011 [facility] Cytology ----- 49 test finding [phone] <SEE NOTE> Lipid Panel 05/17/2011 [facility] Triglyceride 61 mg/ dL 40-2 [phone] Cholesterol 207 mg/dL High Less Than 200 50 High Density Lipoprotein 58 mg/dL 40-60 51 Cholesterol/HDL Ratio 3.57 AVERAGE 1-4.44 Low Density Lipoprotein 137 mg/dL High Less Than 100 52 Comprehensive 05/17/2011 [facility] Sodium 141 mmol/ L 135-145 Metabolic [phone] Potassium 4.5 mmol/L 3.5-5.0 Chloride 104 mmol/L [...] > 60 55 CBC No Diff 05/17/2011 [facility] White Blood 5.8 CUMM 4.8-10.8 [phone] Count Red Cell Count 4.40 CUMM 4.2-5.4 Hemoglobin 14.6 g/dL 12.0-16.0 Hematocrit 42 % 35-47 Mean Corpuscular Volume 96 um3 79-97 Mean Corpuscular Hemoglob 33 pg High 27-31 Mean Corpuscular HGB Cone 35 g/dL 32-36 Redcell Distribution WDTH 13 % 10.5-15 Platelet Count 220 CUMM 150-450 Mean Platelet Volume 8.4 um3 7.4-10.4 Laboratory test 05/17/2011 [facility] CPK (Creatine 78 U/L 0-170 finding [phone] Kinase) Laboratory test 05/25/2010 [facility] CPK (Creatine 53 U/L 0-170 finding [phone] Kinase) CBC With 05/25/2010 [facility] White Blood 5.8 CUMM 4.8-10.8 Electronic Diff [phone] Count Red Cell Count 4.28 CUMM 4.2-5.4 [...] Basophils 0 0-0.2 Comp Metabolic Panel 05/25/2010 [facility] Sodium 138 mmol/L 135-145 [phone] Potassium 4.3 mmol/L 3.5-5.0 Chloride 104 mmol/L [...] 107.7 > 60 59 Lipid Profile 05/25/2010 [facility] Triglyceride 61 mg/dL 40-200 (Trig/Chol/HDL) [phone] Cholesterol 206 mg/dL High Less Than 200 [...] NEG Neg Urine Blood NEG Neg Specific Paxton N/A Low 1.01-1.02 Laboratory test 04/20/2010 [facility] Thin Prep SEE NOTE 63 finding [phone] W/HPV(Lsil/JASON/Asc) Lipid Panel 11/17/2009 [facility] Cholesterol, Total 169 <200 [phone] mg/dL Triglycerides 41 mg/dL <150 HDL Cholesterol 63 mg/dL High 40-60 Chol/HDL Cholesterol 2.7 64 LDL Cholesterol, Calc. 98 mg/dL 65 LDL/HDL Cholesterol 1.6 66 Hepatic (Liver) 11/17/2009 [facility] Albumin 4.4 g/dL 3.5-4.7 Panel [phone] Protein, Total 6.7 g/dL 6.4-8.3 Alkaline Phosphatase 72 U/L 10-118 Sgot (Ast) 26 U/L 3-40 SGPT (Alt) 25 U/L 7-50 Bilirubin, Total 0.40 mg/dL 0.30-1.20 Bilirubin, Direct 0.13 mg/dL 0.00-0.40 Bilirubin, Indirect 0.27 mg/dL 0.10-1.10 Vaginal Culture 10/20/2009 [facility] Vaginal Culture Normal vaginal 67 [phone] <SEE NOTE> .Gram Stain Additional NO EPI, NO WBC, <SEE NOTE> 68 Vaginitis Dna 10/20/2009 [facility] Screen Trichomonas NEGATIVE Probe Screen [phone] Vaginalis Dna Screen Gardnerella Vaginalis Dna NEGATIVE Screen Laura Species Dna NEGATIVE Urine DIP 10/20/2009 In House Lab Leukocytes NEG Neg (607)- - Urine Nitrites NEG Neg Urine pH 9 High 5-6 Total Protein, Urine NEG Neg Urine Glucose NORM Norm Urine Ketones NEG Neg Urobilinogen NORM Norm Urine Bilirubin NEG Neg Urine Blood NEG Neg Specific Paxton N/A Low 1.01-1.02 Statin 09/23/2009 [facility] Sgot (Ast) 34 U/L 3-40 69 [phone] SGPT (Alt) 34 U/L 7-50 Lipid Panel 09/23/2009 [facility] Cholesterol, 245 mg/dL Abnormal <200 [phone] Total Triglycerides 59 mg/dL <150 HDL Cholesterol 62 mg/dL High 40-60 Chol/HDL Cholesterol 4.0 70 LDL Cholesterol, Calc. 171 mg/dL Abnormal 71 LDL/HDL Cholesterol 2.8 72 Laboratory test 09/23/2009 [facility] Glucose, 97 mg/dL 70-100 finding [phone] Fasting Hemoccult 03/31/2009 In House Lab Stool-Occult [...] neg Neg Urine Blood neg Neg Specific Paxton na Low 1.01-1.02 Laboratory 03/31/2009 [facility] Thin Prep SEE 73 test finding [phone] W/HPV(Lsil/JASON/Asc) NOTE GFR 03/25/2009 [facility] GFR (Calculated) >60 74 Calculated [phone] Lipid Panel 03/25/2009 [facility] Cholesterol, Total 233 Abnormal <2 [phone] mg/dL 00 Triglycerides 63 mg/dL <150 HDL Cholesterol 51 mg/dL 40-60 Chol/HDL Cholesterol 4.6 75 LDL Cholesterol, Calc. 169 mg/dL Abnormal 76 LDL/HDL Cholesterol 3.3 77 Comprehensive 03/25/2009 [facility] Glucose 106 mg/dL High 70-100 Metabolic [phone] BUN 16 mg/dL 4-18 Creatinine, Serum 0.70 mg/dL 0.50-1.10 Sodium 143 mmol/L 136-146 Potassium 4.7 mmol/L 3.5-5.3 Chloride 106 mmol/L 98-110 Carbon Dioxide 28 mmol/L 20-32 Albumin 4.1 g/dL 3.5-4.7 Protein, Total 6.5 g/dL 6.4-8.3 Calcium 9.0 mg/dL 8.4-10.4 Alkaline Phosphatase 77 U/L 10-118 Sgot (Ast) 29 U/L 3-40 SGPT (Alt) 28 U/L 7-50 Bilirubin, Total 0.30 mg/dL 0.30-1.20 Laboratory 03/25/2009 [facility] TSH (Thyrotropin) 2.580 0.350-5.500 test finding [phone] uIU/ml CBC 02/03/2008 [facility] WBC 5.3 x103 4.3-10.9 [phone] RBC 4.47 x106 3.80-5.30 Hemoglobin 14.2 g/dL [...] Absolute 0.1 x103 0.0-0.2 Comprehensive Metabolic 02/03/2008 [facility] Glucose 97 mg /dL 70-100 [phone] BUN 19 mg/dL High 4-18 Creatinine, Serum 1.0 mg/dL 0.5-1.2 Sodium 142 mmol/L 136-146 Potassium 4.8 mmol/L 3.5-5.3 Chloride 105 mmol/L 98-110 Carbon Dioxide 28 mmol/L 20-32 Albumin 4.3 g/dL 3.5-4.7 Protein, Total 6.7 g/dL 6.4-8.3 Calcium 9.8 mg/dL 8.4-10.4 Alkaline Phosphatase 73 U/L 10-118 Sgot (Ast) 26 U/L 3-40 SGPT (Alt) 28 U/L 7-50 Bilirubin, Total 0.40 mg/dL 0.30-1.20 Laboratory 02/03/2008 [facility] TSH (Thyrotropin) 2.030 0.350-5.500 test finding [phone] uIU/ml T Transglutaminase Iga 1 U/mL 0-3 78 Vitamin D, 25 Oh 69.8 ng/mL 32.0-100.0 79 Gliadin 02/03/2008 [facility] Deamidated 3.6 U/mL 0.0- 10.0 80 Igg/Iga AB [phone] Gliadin Abs, IgA Deamidated Gliadin Abs, IgG 0.6 U/mL 0.0-10.0 81 Laboratory test 02/03/2008 [facility] GFR (Calculated) 60 82 finding [phone] Laboratory test 02/03/2008 [facility] Thin Prep SEE NOTE 83 finding [phone] W/HPV(Lsil/JASON/As c) Hemoccult 02/03/2008 In House Lab [...] NEG Neg Urine Blood NEG Neg Specific Paxton NEG Low 1.01-1.02 Hemoccult 02/06/2007 In House Lab Stool-Occult Blood #1 NEG Neg (607)- - Stool-Occult Blood #2 NEG Neg Stool-Occult Blood #3 NEG Neg Lipid 01/31/2007 [facility] Cholesterol, 210 mg/dL High 120-200 84 Profile [phone] Total HDL Cholesterol 62 mg/dL High 40-60 LDL Cholesterol, Calc. 135 mg/dL AB 85 Triglycerides 66 mg/dL 86 LDL/HDL Cholesterol 2.2 87 Chol/HDL Cholesterol 3.4 88 Laboratory 01/31/2007 [facility] TSH (Thyrotropin) 2.110 0.350-5.500 test finding [phone] uIU/ml GFR (Calculated) 60 89 Laboratory test 01/31/2007 [facility] Helicobacter <0.89 0.00-0.88 90 finding [phone] Pylori,Iga index Laboratory test 01/31/2007 [facility] Thin Prep SEE NOTE 91 finding [phone] W/HPV(Lsil/JASON/ Asc) Urine DIP 01/31/2007 In House Lab Leukocytes NEG Neg (607)- - Urine Nitrites NEG Neg Urine pH 9 High 5-6 Total Protein, Urine NEG Neg Urine Glucose NORM Norm Urine Ketones NEG Neg Urobilinogen NORM Norm Urine Bilirubin NEG Neg Urine Blood NEG Neg Specific Paxton NA Low 1.01-1.02 Comprehensive Metabolic 01/31/2007 [facility] Glucose 85 mg /dL 70-100 [phone] BUN 20 mg/dL High 4-18 Creatinine, Serum 1.0 mg/dL 0.5-1.2 Sodium 142 mmol/L 136-146 Potassium 4.4 mmol/L 3.5-5.3 Chloride 104 mmol/L 98-110 Carbon Dioxide 24 mmol/L 20-32 Albumin 4.3 g/dL 3.5-4.7 Protein, Total 6.9 g/dL 6.4-8.2 Calcium 9.6 mg/dL 8.4-10.4 Alkaline Phosphatase 71 U/L 10-118 Sgot (Ast) 28 U/L 3-40 SGPT (Alt) 25 U/L 7-50 Bilirubin, Total 0.30 mg/dL 0.30-1.20 Laboratory test 05/24/2006 [facility] Erythrocyte Sed 1 MM/HR 0-30 finding [phone] Rate CBC With 05/24/2006 [facility] White Blood 4.5 CUMM Low 4.8-10.8 Electronic Diff [phone] Count Abs Basophils 0 0-0.2 Abs Eosinophils [...] WDTH 12 % 10.5-15 Laboratory test 05/24/2006 [facility] C Reactive < 0.5 mg/dL Less Than finding [phone] Protein 0.5 Hemoccult 03/01/2006 In House Lab [...] neg Neg Urine Blood neg Neg Specific Paxton na Low 1.01-1.02 Laboratory test 08/15/2005 [facility] CK, Total 63 U/L 29-229 finding [phone] TSH (Thyrotropin) 2.230 uIU/ml 0.350-5.500 T-4 Free 1.1 ng/dL 0.8-1.8 Magnesium 2.4 mg/dL 1.7-2.7 Vitamin B-12 468 pg/mL 92 GFR (Calculated) 60 93 Comprehensive Metabolic 08/15/2005 [facility] Glucose 83 mg /dL 70-100 [phone] BUN 20 mg/dL High 4-18 Creatinine, Serum [...] #3 NEG 02/05 Neg Laboratory test 08/09/2004 [facility] Thinprep W/HPV REC'D- SEE finding [phone] JASON/Acus/LGSIL IMAGE Urine DIP 08/09/2004 [facility] House Lab Leukocytes NEG Neg (607)- - Urine Nitrites NEG Neg Urine pH 5 5-6 Total Protein, Urine NEG Neg Urine Glucose NORM Norm Urine Ketones NEG Neg Urobolinogen NORM Norm Urine Bilirubin NEG Neg Urine Blood NEG Neg Specific Paxton NA Low 1.01-1.02 Hemoccult 03/04/2004 In House Lab Stool-Occult Blood #1 NEG Neg (607)- - Stool-Occult Blood #2 NEG Neg Stool-Occult Blood #3 NEG Neg Laboratory test 08/05/2003 [facility] Thin Layer Pap REC'D-SEE finding [phone] W/Reflex To HPV IMAGE For ASCUS Urine DIP 08/05/2003 In House Lab Leukocytes NEG Neg (607)- - Urine Nitrites NEG Neg Urine pH 5 5-6 Total Protein, Urine NL Neg Urine Glucose NL Norm Urine Ketones NL Neg Urobolinogen NL Norm Urine Bilirubin NL Neg Urine Blood NL Neg Specific Paxton N/A Low 1.01-1.02 Laboratory test finding 03/15/2003 [facility] Culture Stool PRELIMINARY (607)- - Stool-Giardia Lamblia Antigen NEGATIVE Hemoccult 12/16/2002 In House Lab Stool-Occult Blood #1 NEG Neg (607)- - Stool-Occult Blood #2 NEG Neg Stool-Occult Blood #3 NEG Neg Comp Metabolic 12/10/2002 [facility] Laboratory Anion Gap 9.0 mmol/L 2-11 94 Panel [phone] Albumin/Globulin Ratio 1.7 1-3 Albumin 4.0 GM/DL [...] NEG Neg Urine Blood NEG Neg Specific Paxton #2 DIP OK High 1.01-1.02 Laboratory test 08/06/2002 [facility] Laboratory Pap Smear REC'D -SEE IMAGE finding [phone] Urine DIP 08/06/2002 In House Lab Leukocytes NEG Neg (607)- - Urine Nitrites POS Neg Urine pH 5 5-6 Total Protein, Urine NEG Neg Urine Glucose NORM Norm Urine Ketones NEG Neg Urobolinogen NORM Norm Urine Bilirubin NGE Neg Urine Blood NEG Neg Specific Paxton NA Low 1.01-1.02 Lipid Profile 09/23/2001 [facility] Cholesterol, 177 mg/dL 120.0 - 95 [phone] Total 200.0 Chol/HDL Cholesterol 3.6 96 HDL [...] NEG Neg Urine Blood NEG Neg Specific Paxton N/A Low 1.01-1.02 1 [facility] Severe Sepsis and Septic Shock Management Bundle Measure requires all lactic acids initially measuring >2.0 mmol/L be repeated. 2 [facility] Severe Sepsis and Septic Shock Management Bundle Measure requires all lactic acids initially measuring >2.0 mmol/L be repeated. 3 Standard intensity warfarin therapeutic range: 2.0-3.0 High intensity warfarin therapeutic range: 2.5-3.5 4 Troponin-I testing on Plasma Separator Tubes (PST) has a known false positive rate of 0.20-0.40%. All positive troponins reflex immediately to secondary confirmatory testing. Using the [employer] DxI 800 Access Immunoassay systems, the 99th [...] may interfere with detection of blood. 7 Sueding Machine Operator: 

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
[2018-11-14 12:25] VITALS: BP 174/75
== END 2018-11-14 12:25 | disposition home or self-care (01) ==
LOC: ED 10:51
DX: S00.81XA Abrasion of other part of head, initial encounter (principal); W01.0XXA Fall on same level from slipping, tripping and stumbling without subsequent striking against object, initial encounter; Z88.2 Allergy status to sulfonamides; Z88.3 Allergy status to other anti-infective agents; Z87.891 Personal history of nicotine dependence
CPT/HCPCS: 70450; 72125; 99282

== ENCOUNTER 2019-04-03 20:52 | Emergency (ER) | payer MEDICARE, OTHER, BC ==
--- NOTE | 2019-04-03 21:09 | ED ---
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 The staff stated that the pt is able to converse normally and sustain conversations and instead became lethargic today. This pt is a level 5 Caveat due to a Hx of dementia. She also has a PMHx of anxiety. On arrival to ED, patient is conversive saying yes/no otherwise not oriented. No focal neurologic deficits. - History Of Current Complaint Chief Complaint: EDAltMentalStatus Stated Complaint: ALTERED MENTAL STATUS PER EMS Time Seen by Provider: 04/03/19 20:55 Hx Obtained From: EMS Last Known Well Date: 04/03/19 COMPUTER FORENSICS INVESTIGATOR Onset/Duration: Unknown Timing: Constant - Allergies/Home Medications Allergies/Adverse Reactions: Allergies Allergy/AdvReac Type Severity Reaction Status Date / Time sulfamethoxazole Allergy Rash Verified 11/14/18 11:08 [From Bactrim] tetracycline Allergy Rash Verified 11/14/18 11:08 trimethoprim [From Bactrim] Allergy Rash Verified 11/14/18 11:08 Home Medications: Home Medications Acetaminophen TAB* [Tylenol TAB*] 650 mg PO Q6H PRN 04/03/19 [History Confirmed 04/03/19] Aspirin EC TAB* [Ecotrin EC Low Dose 81 MG*] 81 mg PO DAILY 04/03/19 [History Confirmed 04/03/19] Brimonidine/Timolol OPTH(NF) [Combigan OPHTH (NF)] 1 drop LEFT EYE BID 04/03/19 [History Confirmed 04/03/19] Calcium Carbonate/Vitamin D3 [Calcium 500+D 500-200 mg-Unit] 1 tab PO DAILY [History Confirmed 04/03/19] Multivitamins/Minerals TAB* [Theragran/minerals TAB*] 1 tab PO DAILY 04/03/19 [ History Confirmed 04/03/19] Potassium Citrate [Urocit-K] 5 meq PO DAILY 04/03/19 [History Confirmed 04/03/19 ] PMH/Surg Hx/FS Hx/Imm Hx Previously Healthy: Yes Endocrine/Hematology History: Denies: Hx Diabetes Cardiovascular History: Denies: Hx Hypertension, Hx Pacemaker/ICD History: Denies: Hx Dialysis, Hx Renal Disease Musculoskeletal History: Denies: Hx Rheumatoid Arthritis, Hx Osteoporosis Sensory History: Denies: Hx Contacts or Glasses, Hx Hearing Aid Opthamlomology History: Denies: Hx Contacts or Glasses Neurological History: Reports: Hx Dementia Psychiatric History: Reports: Hx Anxiety Denies: Hx Panic Disorder - Cancer History Cancer Type, 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 CYST ON COCYX TAKEN OFF 1961. CATARACTS BILATERAL EYES Infectious Disease History: No Infectious Disease History: Denies: Traveled Outside the [place] in Last 30 Days - Family History Known Family History: Positive: Other - Unable to obtain due to Hx of dementia - Social History Lives: [facility] Alcohol Use: Occasionally Alcohol Amount: a glass of wine with dinner Hx Substance Use: No Substance Use Type: Reports: None Hx Tobacco Use: Yes Smoking Status (MU): Former Smoker Review of Systems - ROS Summary Review of Systems Summary: A FULL ROS IS UNOBTAINABLE DUE TO THE PT'S HISTORY OF DEMENTIA. Neurological: Other - Per staff at halfway pt is acting abnormally All Other Systems Reviewed And Are Negative: No Physical Exam - Summary Physical Exam Summary: Constitutional: Well-developed elderly female who is intermittently alert. Skin: Warm, Dry HENT: Normocephalic; Atraumatic Eyes: Conjunctiva normal Neck: Musculoskeletal ROM normal neck. (-) JVD, (-) Stridor, (-) Nuchal rigidity Cardio: Rhythm regular, rate normal, Heart sounds normal; Intact distal pulses; Radial pulses are 2+ and symmetric. (-) Murmur Pulmonary/Chest wall: Effort normal. (-) Respiratory distress, (-) Wheezes, (-) Rales Abd: Soft, (-) tenderness, (-) Distension, (-) Guarding, (-) Rebound Musculoskeletal: trace bilateral lower extremity edema Lymph: (-) Cervical adenopathy Neuro: Alert, responds to name, moving all extremities without focal deficits Psych: deferred A FULL PE IS UNOBTAINABLE DUE TO THE PT'S BASELINE MENTAL STATUS AND HISTORY OF DEMENTIA. Triage Information Reviewed: Yes Vital Signs On Initial Exam: Initial Vitals Temp Pulse Resp BP Pulse Ox 97.1 F 95 16 164/89 98 04/03/19 20:54 04/03/19 20:54 04/03/19 20:54 04/03/19 20:54 04/03/19 20:54 Vital Signs Reviewed: Yes Completion Of Physical Exam Limited Due To: Dementia, Level 5 Procedures - Sedation Patient Received Moderate/Deep Sedation with Procedure: No Diagnostics - Vital Signs Vital Signs Temp Pulse Resp BP Pulse Ox 04/03/19 20:54 97.1 F 95 16 164/89 98 - Laboratory Result Diagrams: 04/03/19 21:26 04/03/19 21:26 Lab Statement: Any lab studies that have been ordered have been reviewed, and results considered in the medical decision making process. - Radiology CXR Radiology Interpretation Completed By: Radiologist Summary of Radiographic Findings: Bilateral pleural effusion, no change from prior. Pending offical review. - CT Brain CT CT Interpretation Completed By: Radiologist Summary of CT Findings: 1. No acute intracranial findings or significant change since prior. 2. Age-related atrophy and chronic white matter ischemic change. ED physician has reviewed this report. - EKG 2134 Cardiac Rate: Tachycardia - 108 BPM EKG Rhythm: Sinus Tachycardia ST Segment: Normal Ectopy: None Summary of EKG Findings: An EKG at 2134 reveals sinus tachycardia rhythm (108 BPM), nml axis, nml intervals. No STEMI. No acute changes. Interpreted by Dr. Stafford at 214104/03/19. Re-Evaluation - Re-Evaluation First Eval Change: Unchanged - d/w Boris who states they were concerned because patient was acting tired as if she had had her evening medications but had not. At baseline responds to name but not oriented. Second Eval Re-Evaluation Time: 23:50 Comment: ambulated in ED. Appears at neurologic baseline Altered Mental Statu Course/Dx - Course Course Of Treatment: 74-year-old female the history of dementia, anxiety presents with altered mental status. Given that this patient has normal O2, BG , hypoxia and hypoglycemia/DKA less likely. DDx still includes: alcohol, electrolyte abnl, thyroid issues, infection/sepsis, drug overdose, hypothermia, uremia, trauma, encephalopathy/encephalitis, psych, stroke, SAH, postictal from seizure. Will check labs, head ct, urine, ekg, cxr. Reassess. - Diagnoses Provider Diagnoses: Fatigue Discharge ED - Sign-Out/Discharge Documenting (check all that apply): Patient Departure - discharge - Discharge Plan Condition: Stable Disposition: HOME Patient Education Materials: Fatigue (ED) Referrals: Yady Munoz MD [Primary Care Provider] - 2 Days Additional Instructions: You were seen in the emergency department for fatigue. Your labs did not show any evidence of infection, your head CT was normal. Your chest x-ray was unchanged from prior. If any studies were not completed at the time of discharge you will be called with the relevant results. Please follow up with your primary care doctor in next 2-3 days and return to emergency department for worsening or concerning symptoms. It was a pleasure taking care of you today. - Billing Disposition and Condition Condition: STABLE Disposition: Home - Attestation Statements Document Initiated by Zoey: Yes Documenting Scribe: Momo Yu Provider For Whom Leonardoe is Documenting (Include Credential): Belinda Stafford MD Scribe Attestation: IMomo, scribed for Belinda Stafford MD on 04/04/19 at 0004. Scribe Documentation Reviewed: Yes Provider Attestation: The documentation as recorded by the Momo rivas accurately reflects the service I personally performed and the decisions made by , Belinda Stafford MD Status of Scribe Document: Viewed
[2019-04-03 21:39] LABS: ABS Basophils 0.1 10^3/ul (0-0.2); ABS Eosinophils 0.1 10^3/ul (0-0.6); ABS Lymphocytes 1.2 10^3/ul (1.0-4.8); ABS Neutrophils 3.6 10^3/ul (1.5-7.7); Eosinophil % 1.3 %; Hematocrit 40 % (35-47); Hemoglobin 13.6 g/dL (12.0-16.0); Lymphocyte % 19.7 %; Mean Corpuscular HGB Conc 34 g/dL (31-36); Mean Corpuscular Hemoglobin 31 pg (27-31); Mean Corpuscular Volume 92 fL (80-97); Mean Platelet Volume 6.7 fL (7.4-10.4); Nucleated Red Blood Cells % 0.1; Platelet Count 256 10^3/uL (150-450); Red Blood Count 4.38 10^6 /uL (3.70-4.87); Red Cell Distribution Width 14 % (10-15); White Blood Count 5.9 10^3/uL (3.5-10.8)
[2019-04-03 21:39] LABS: Urine Appearance Cloudy; Urine Bilirubin Negative (Negative); Urine Blood Negative (Negative); Urine Color Yellow; Urine Glucose Negative (Negative); Urine Ketones Trace (Negative); Urine Nitrite Negative (Negative); Urine Protein Negative (Negative); Urine Specific Gravity 1.023 (1.010-1.030); Urine Urobilinogen Negative (Negative)
[2019-04-03 21:53] LABS: ALT 26 U/L (7-52); AST 23 U/L (13-39); Albumin 3.7 g/dL (3.2-5.2); Albumin/Globulin Ratio 1.3 (1-3); Alkaline Phosphatase 111 U/L (34-104); Anion Gap 7 mmol/L (2-11); BUN/Creatinine Ratio 20.8 (8-20); Blood Urea Nitrogen 15 mg/dL (6-24); CO2 Carbon Dioxide 30 mmol/L (22-32); Calcium 9.1 mg/dL (8.6-10.3); Chloride 101 mmol/L (101-111); EGFR African American 95.5 (>60); Globulin 2.9 g/dL (2-4); Glucose 117 mg/dL (70-100); Sodium 138 mmol/L (135-145); Total Protein 6.6 g/dL (6.4-8.9)
[2019-04-03 21:55] LABS: Acetaminophen < 15 mcg/mL; Alcohol < 10 mg/dL (<10); Salicylate < 2.50 mg/dL (<30)
[2019-04-03 21:59] LABS: Urine Benzodiazepine Screen None Detected (None Detect); Urine Opiates Screen None Detected (None Detect)
[2019-04-04 00:15] VITALS: BP 121/63
== END 2019-04-04 00:01 | disposition home or self-care (01) ==
LOC: ED 20:52
DX: R53.83 Other fatigue (principal); F41.9 Anxiety disorder, unspecified; R41.82 Altered mental status, unspecified; Z87.891 Personal history of nicotine dependence; Z79.899 Other long term (current) drug therapy
CPT/HCPCS: 36415; 70450; 71045; 80053; 80307; 80320; 80329; 81003; 82140; 83605; 84484; 85025; 93005; 99283; G0480

== ENCOUNTER 2019-04-30 08:22 | Inpatient (IN) | payer MEDICARE, BC ==
--- NOTE | 2019-04-30 08:39 | ED ---
Complex/Multi-Sys Presentation - HPI Summary HPI Summary: Patient is a 74 y/o F w/ Hx of dementia, glaucoma, and anxiety who presents to [facility] for [facility]itness[facility]. It is reported that the patient had been found on the ground by [facility] staff. In the room, patient makes note of RLE pain when it is moved. Patient is a level 5 caveat secondary to dementia, patient is unable to provide history. Home medications and allergies are reviewed. - History Of Current Complaint Time Seen by Provider: 04/30/19 08:27 Hx Obtained From: EMS Hx From Patient Unobtainable Due To: Dementia Onset/Duration: Still Present Timing: Constant Location: Pain At: - RLE Aggravating Factor(s): movement Associated Signs And Symptoms: Positive: Other - positive - RLE pain. Negative : Fever - on vitals, temp is 97.8 F - Allergies/Home Medications Allergies/Adverse Reactions: Allergies Allergy/AdvReac Type Severity Reaction Status Date / Time sulfamethoxazole Allergy Rash Verified 11/14/18 11:08 [From Bactrim] tetracycline Allergy Rash Verified 11/14/18 11:08 trimethoprim [From Bactrim] Allergy Rash Verified 11/14/18 11:08 Home Medications: Home Medications Brimonid/Timolol 0.2/0.5%(NF) [Combigan 0.2/0.5% (NF)] 1 drop LEFT EYE BID 04/30 [History Confirmed 04/30/19] Furosemide TAB* [Lasix TAB*] 40 mg PO DAILY 04/30/19 [History Confirmed 04/30/19 ] Neomycin/Bacitracin/Polymyxinb [Triple Antibiotic Ointment] 1 applic TOPICAL BID 04/30/19 [History Confirmed 04/30/19] PMH/Surg Hx/FS Hx/Imm Hx Endocrine/Hematology History: Denies: Hx Diabetes Cardiovascular History: Denies: Hx Hypertension, Hx Pacemaker/ICD History: Denies: Hx Dialysis, Hx Renal Disease Musculoskeletal History: Denies: Hx Rheumatoid Arthritis, Hx Osteoporosis Sensory History: Denies: Hx Contacts or Glasses, Hx Hearing Aid Opthamlomology History: Denies: Hx Contacts or Glasses Neurological History: Reports: Hx Dementia Psychiatric History: Reports: Hx Anxiety Denies: Hx Panic Disorder - Cancer History Cancer Type, 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 CYST ON COCYX TAKEN OFF 1961. CATARACTS BILATERAL EYES Infectious Disease History: No Infectious Disease History: Denies: Traveled Outside the [place] in Last 30 Days - Family History Known Family History: Positive: Other - Unable to obtain due to Hx of dementia - Social History Alcohol Use: Occasionally Alcohol Amount: a glass of wine with dinner Hx Substance Use: No Substance Use Type: Reports: None Hx Tobacco Use: Yes Smoking Status (MU): Former Smoker Review of Systems Negative: Fever - on vitals, temp is 97.8 F Musculoskeletal: Other - positive - RLE pain All Other Systems Reviewed And Are Negative: Yes Physical Exam - Summary Physical Exam Summary: Constitutional: Well-developed, Well-nourished, Alert. (-) Distressed Skin: Warm, Dry, abrasions bilateral knees. HENT: Normocephalic; Atraumatic Eyes: Conjunctiva normal Neck: Musculoskeletal ROM normal neck. (-) JVD, (-) Stridor, (-) Nuchal rigidity Cardio: Rhythm regular, rate normal, Heart sounds normal; Intact distal pulses; Radial pulses are 2+ and symmetric. (-) Murmur Pulmonary/Chest wall: Effort normal. (-) Respiratory distress, (-) Wheezes, (-) Rales Abd: Soft, (-) tenderness, (-) Distension, (-) Guarding, (-) Rebound Musculoskeletal: Pain with ROM of right hip, no obvious deformity, swelling to medial aspect of L knee, old scar to L knee. Neuro: Alert but disoriented to place and time. Psych: Cooperative Triage Information Reviewed: Yes Vital Signs On Initial Exam: Initial Vitals Temp Pulse Resp BP Pulse Ox 97.8 F 102 14 182/106 97 04/30/19 08:26 04/30/19 08:26 04/30/19 08:26 04/30/19 08:26 04/30/19 08:26 Vital Signs Reviewed: Yes - [place] Coma Scale Best Eye Response: 4 - Spontaneous Best Motor Response: 6 - Obeys Commands Best Verbal Response: 4 - Confused Coma Scale Total: 14 Procedures - Procedure Summary Procedure Summary: Left knee incision and drainage was done. Beside soft tissue US of left knee showed scant fluid collections. Topical lidocaine, 3 cc, was administered. Single incision with scalpel was done. Only bloody drainage was noted. - Sedation Patient Received Moderate/Deep Sedation with Procedure: No - Incision and Drainage Left Knee Site: left knee, soft tissue Anesthesia: Topical - 3 cc lidocaine Instrument(s): Scalpel Diagnostics - Vital Signs Vital Signs Temp Pulse Resp BP Pulse Ox 04/30/19 08:26 97.8 F 102 14 182/106 97 - Laboratory Result Diagrams: 04/30/19 08:45 04/30/19 08:45 Lab Statement: Any lab studies that have been ordered have been reviewed, and results considered in the medical decision making process. - Radiology CXR Radiology Interpretation Completed By: Radiologist Summary of Radiographic Findings: CXR IMPRESSION: NO ACTIVE CARDIOPULMONARY DISEASE. THIS REPORT WAS REVIEWED BY DR. STAFFORD. RIGHT FEMUR X-RAY Radiology Interpretation Completed By: Radiologist Summary of Radiographic Findings: RIGHT FEMUR X-RAY IMPRESSION: NO EVIDENCE FOR FRACTURE. THIS REPORT WAS REVIEWED BY DR. STAFFORD. RIGHT HIP AND PELVIC X-RAY Radiology Interpretation Completed By: Radiologist Summary of Radiographic Findings: RIGHT HIP AND PELVIS X-RAY IMPRESSION: NO EVIDENCE FOR FRACTURE, IF THE PATIENT'S SYMPTOMS PERSIST RECOMMEND. FOLLOW-UP IMAGING. THIS REPORT WAS REVIEWED BY DR. STAFFORD. RIGHT KNEE X-RAY Radiology Interpretation Completed By: Radiologist Summary of Radiographic Findings: RIGHT KNEE X-RAY IMPRESSION: NO EVIDENCE FOR FRACTURE. IF THE PATIENT'S SYMPTOMS PERSIST RECOMMEND. FOLLOW-UP IMAGING. THIS REPORT WAS REVIEWED BY DR. STAFFORD. LEFT KNEE X-RAY Radiology Interpretation Completed By: Radiologist Summary of Radiographic Findings: LEFT KNEE X-RAY IMPRESSION: 1. OSTEOPENIA. 2. OSTEOARTHRITIS. 3. NO ACUTE OSSEOUS INJURY. THE DEGREE OF OSTEOPENIA MAY MAKE A NONDISPLACED FRACTURE. RADIOGRAPHICALLY OCCULT. IF SYMPTOMS PERSIST, RECOMMEND REPEAT IMAGING. THIS REPORT WAS REVIEWED BY DR. STAFFORD. - CT CERVICAL SPINE CT CT Interpretation Completed By: Radiologist Summary of CT Findings: CERVICAL SPINE CT IMPRESSION: 1. NO EVIDENCE FOR FRACTURE OR SUBLUXATION. 2. MILD TO MODERATE CERVICAL SPONDYLOSIS DESCRIBED. THIS REPORT WAS REVIEWED BY DR. STAFFORD. BRAIN CT CT Interpretation Completed By: Radiologist Summary of CT Findings: BRAIN CT IMPRESSION: NO EVIDENCE FOR ACUTE INTRACRANIAL ABNORMALITY. THIS REPORT WAS REVIEWED BY DR. STAFFORD. - Ultrasound BEDSIDE SOFT TISSUE LEFT KNEE Ultrasound Interpretation Completed By: ED Physician Summary of Ultrasound Findings: Bedside soft tissue US of left knee showed scant fluid collection. - EKG 0852 Cardiac Rate: NL - RATE OF 99 BPM EKG Rhythm: Sinus Rhythm Summary of EKG Findings: EKG showed NSR with rate of 99 BPM, T-wave inversions in aVL. No STEMI. This EKG was reviewed and interpreted by Dr. Staffodr. Re-Evaluation - Re-Evaluation First Eval Re-Evaluation Time: 12:22 Comment: UA suggests presence of UTI. Ceftriaxone to be given. On re-eval, bilateral knee abrasions are noted with erythema of left knee. Knee X-ray bilaterally to be done. Second Eval Re-Evaluation Time: 12:50 Comment: Per , patient has Hx of left knee surgery complicated by infection from years ago (>20 years) Third Eval Re-Evaluation Time: 14:07 Comment: Incision and drainage of left knee done. Scant bloody drainage Complex Multi-Symp Course/Dx Course Of Treatment: 74 y/o F w hx dementia p/w fall. -Patient without complaints aside from R leg pain, no obvious deformities. Check CXR, R R femur/ hip and pelvis. Labs and EKG given unwitnessed fall. -Labs notable for WBC 20, CXR neg for PNA, check UA. bilateral knee abrasions, check XR. - soft tissue swelling to L knee w erythema, limited ROM but unclear baseline, bedside US w soft tissue fluid collection, small. I&D w blood, suspect traumatic hematoma. Ddx also includes soft tissue infection, lower suspicion for septic joint. - Diagnoses Provider Diagnoses: UTI (urinary tract infection), Weakness, Knee pain - Physician Notifications Discussed Care Of Patient With: Edwin Noel Time Discussed With Above Provider: 13:59 Instructed by Provider To: Other - Patient's case was discussed with Dr. Noel, Dr. Noel accepts for admission. [id number] - Patient's case was discussed with Dr. Lopez, Dr. Lopez will consult as needed. Discharge ED - Sign-Out/Discharge Documenting (check all that apply): Patient Departure - ADMIT - Discharge Plan Condition: Stable Disposition: ADMITTED TO [facility] Referrals: Yady Munoz MD [Primary Care Provider] - - Billing Disposition and Condition Condition: STABLE Disposition: Admitted to [facility] - Attestation Statements Document Initiated by Zoey: Yes Documenting Scribe: ZENAIDA SOLIMAN Provider For Whom Zoey is Documenting (Include Credential): LUCIO STAFFORD MD Scribe Attestation: IZENAIDA, scribed for LUCIO STAFFORD MD on 04/30/19 at 1539. Scribe Documentation Reviewed: Yes Provider Attestation: The documentation as recorded by the ZENAIDA rivas accurately reflects the service I personally performed and the decisions made by me, LUCIO STAFFORD MD Status of Scribe Document: Viewed
[2019-04-30 08:59] LABS: Hematocrit 44 % (35-47); Hemoglobin 14.6 g/dL (12.0-16.0); Mean Corpuscular HGB Conc 33 g/dL (31-36); Mean Corpuscular Hemoglobin 30 pg (27-31); Mean Corpuscular Volume 91 fL (80-97); Platelet Count 447 10^3/uL (150-450); Red Blood Count 4.81 10^6 /uL (3.70-4.87); Red Cell Distribution Width 13 % (10-15); White Blood Count 21.6 10^3/uL (3.5-10.8)
[2019-04-30 09:13] LABS: Albumin 3.9 g/dL (3.2-5.2); Albumin/Globulin Ratio 1.1 (1-3); BUN/Creatinine Ratio 20.7 (8-20); Calcium 9.8 mg/dL (8.6-10.3); EGFR African American 76.8 (>60); EGFR Non-African American 63.5 (>60); Globulin 3.7 g/dL (2-4); Potassium 3.5 mmol/L (3.5-5.0); Total Bilirubin 0.3 mg/dL (0.2-1.0); Total Protein 7.6 g/dL (6.4-8.9)
[2019-04-30 09:15] LABS: Troponin I 0.02 ng/mL (<0.03)
[2019-04-30 10:32] LABS: ABS Basophils 0.2 10^3/ul (0-0.2); ABS Lymphocytes 0.6 10^3/ul (1.0-4.8); ABS Monocytes 0.7 10^3/ul (0-0.8); ABS Neutrophils 20.1 10^3/ul (1.5-7.7); Eosinophil % 0.1 %; Nucleated Red Blood Cells % 0.1
[2019-04-30] MEDS ORDERED: NS 0.9% 1000 ML** 1,000 ML IV ONE (10:41)
[2019-04-30 12:11] LABS: Urine Appearance Cloudy; Urine Bilirubin Negative (Negative); Urine Blood 1+ (Negative); Urine Color Yellow; Urine Glucose Negative (Negative); Urine Ketones Negative (Negative); Urine Nitrite Negative (Negative); Urine Protein Negative (Negative); Urine Specific Gravity 1.009 (1.010-1.030); Urine Urobilinogen Negative (Negative)
[2019-04-30 12:15] LABS: Urine Bacteria Absent (Absent); Urine Red Blood Cell 2+(6-10/hpf) (Absent); Urine Squamous Epithelial Cell Present (Absent); Urine White Blood Cell 3+(>20/hpf) (Absent)
[2019-04-30] MEDS ORDERED: cefTRIAXone(*) 1 GM in NS 0.9% 50 ML* 50 ML IVPB ONE (12:21)
[2019-04-30] MEDS ORDERED: Lidocaine 1% MPF* 2 ML VIAL INJ ONE (13:59)
[2019-04-30] MEDS ORDERED: Acetaminophen TAB* 325 MG PO PRN (14:40)
[2019-04-30] MEDS ORDERED: Lidocaine 1% MPF ** 5 ML VIAL INJ ONE (15:00)
[2019-04-30 15:03] LABS: Erythrocyte Sed Rate 36 mm/Hr (0-29)
--- NOTE | 2019-04-30 17:00 | HP ---
CC: Dr. Lloyd * HISTORY AND PHYSICAL: DATE OF ADMISSION: 04/30/19 PRIMARY CARE PROVIDER: Dr. Lloyd. ATTENDING PHYSICIAN: Dr. Edwin Noel * (dictated by SHAMA Garcia). CHIEF COMPLAINT: Fall. HISTORY OF PRESENT ILLNESS: Ms. Gomez is a 74-year-old female with past medical history of dementia, who presented to the ER today after being found down at [facility]. She had sustained an unwitnessed fall. The information obtained came from reports from Boris, the patient's , as the patient is confused and is unable to relay a reliable history. The patient typically walks without assistance, but does so slowly. Today, she was found down after having sustained an unwitnessed fall. Staff at [facility] states that they had a difficult time helping the patient off the floor and suspected that the patient was in pain, although she did not complain of pain. She was then sent to the ER. During our interview, the patient is unable to answer questions. When asked if she has pain, she answers inappropriately. In the ER, the patient received a full workup including blood work, which revealed a leukocytosis. Urinalysis was obtained and showed 3+ LE, negative nitrites, negative bacteria. EKG shows normal sinus rhythm at a rate of [address] of the brain and C-spine are unremarkable. Chest x-ray , bilateral knee, right femur, right hip and pelvis x-rays are unremarkable. The patient was given 1 L bolus normal saline and 1 g of ceftriaxone in the ER. The patient was noted to have an erythematous area at the media aspect of the left knee. Ultrasound was performed and imaging was consistent with fluid- filled subdermal area. Dr. Stafford lanced the area and only blood was expressed. There was no purulent drainage. The patient was bandaged and the hospitalist team was asked to evaluate the patient for admission. PAST MEDICAL HISTORY: 1. Dementia. 2. Glaucoma. PAST SURGICAL HISTORY: Right knee replacement with possible septic joint after replacement. HOME MEDICATIONS: 1. Acetaminophen 650 mg p.o. q.6 hours p.r.n. pain. 2. Aspirin 81 mg p.o. daily. 3. Combigan 1 drop left eye b.i.d. 4. Calcium 500 plus D 1 tab p.o. daily. 5. Furosemide 40 mg p.o. daily. 6. Multivitamin/minerals 1 tab p.o. daily. 7. Triple antibiotic ointment 1 application topically b.i.d. 8. Potassium citrate 5 mEq p.o. daily. 9. Risperidone 0.25 mg p.o. at bedtime. DRUG ALLERGIES: BACTRIM, rash; TETRACYCLINE, rash. FAMILY HISTORY: Positive for Alzheimer's. Mother from complications of Alzheimer's. Father after a fall. He sustained a hip fracture, was hospitalized and of an infection. No family history of CVA, cancer , diabetes mellitus, or heart disease. SOCIAL HISTORY: The patient does not use tobacco or alcohol. She lives at [facility]. She is . She does not work. In the event that she is unable to make her own medical decisions, she has appointed her , Joaquin Gomez or her son, Mahad Gomez, to be her surrogate decision makers. REVIEW OF SYSTEMS: A 14-point review of systems was attempted, but the patient is unable to respond appropriately to questioning; therefore, I will forgo review of systems. PHYSICAL EXAMINATION GENERAL: Ms. Gomez is a well-developed, well-nourished, average weight, older white woman, who is sitting up in bed. She is confused and unable to answer questions appropriately. She is pleasant. VITAL SIGNS: Temperature 97.8 temporal, heart rate 103, respiratory rate 14, oxygen saturation 96% on room air, blood pressure 149/79. HEENT: PERRL. Nonicteric sclerae. Hearing appears to be grossly intact. Oral mucous membranes are mildly dry. PULMONARY: Symmetrical chest expansion without use of accessory muscles. Clear to auscultation bilaterally anteriorly, although the patient is unable to follow instructions for deep breathing. No digital clubbing or cyanosis. CARDIOVASCULAR: Sinus tachycardia. S1, S2 present without murmurs, rubs, clicks, or gallops. There is no JVD. There is trace left lower extremity edema , 2+ pitting right lower extremity edema. ABDOMEN: Flat. Bowel sounds in all quadrants. Nontender to palpation. MUSCULOSKELETAL: Upper extremities with intact passive range of motion to 90 degrees abduction of bilateral shoulders, otherwise intact in the upper extremities. Lower extremities bilaterally with hip flexion to approximately 90 degrees, knee flexion to approximately 90 degrees. Beyond these movements, the patient does not appear to be in pain, but tenses up. She is unable to follow instructions for active range of motion. There is a right anterior knee skin tear. There is a left anterior knee healing wound that is scabbed without discharge. Medial to the patella, there is an area of erythema and swelling with very small amount of bloody drainage. This is the site of incision and drainage. Clean, dry, and intact dressing is in place. NEURO: The patient is awake and alert. She is oriented to name only; unable to tell date of , location, or date. Unable to follow instructions to assess cranial nerves or muscle strength. DIAGNOSTIC STUDIES/LAB DATA: WBC 21.6, absolute neutrophils 20. Anion gap 15 , glucose 198. Alk phos 137. 3+ LE on UA, negative nitrites, absent bacteria. 1. Left knee, impression: Osteopenia, osteoarthritis. No acute osseous injury. 2. Right knee, impression: No evidence for fracture. 3. Right hip, impression: No evidence for fracture. 4. Right femur, impression: No evidence for fracture. 5. Chest x-ray, impression: No active cardiopulmonary disease. 6. CT brain, impression: No evidence for acute intracranial abnormality. 7. CT cervical spine, impression: No evidence for fracture or subluxation. Mild- to-moderate cervical spondylosis as described. ASSESSMENT AND PLAN: Ms. Gomez is a 74-year-old female with a past medical history of dementia, who presented to the ER today after a fall and was found to meet sepsis criteria. The patient will be admitted for: 1. Sepsis. The patient meets sepsis criteria with leukocytosis and tachycardia. She received 1 L IV fluid bolus and 1 gram of IV ceftriaxone for likely urinary tract infection. I have ordered blood cultures, although again the patient has already received IV antibiotics prior to drawing of blood cultures. She will be continued on ceftriaxone at admission due to possible urinary tract infection with urinalysis showing 3+ LE, negative nitrites, negative bacteria. We will await urine culture for further management. 2. Fall. The patient sustained a fall today. This was unwitnessed. CT of the brain and neck are without abnormality. Bilateral knee and right leg, hip and pelvis imaging was performed and there are no acute abnormalities noted. It is possible that the patient fell due to complications from urinary tract infection. We will order PT and OT to further evaluate the patient. 3. Left knee soft tissue swelling. At the medial aspect of the patella on the left leg, there is some mild erythema and swelling. A bedside ultrasound was performed showing scant fluid collection. I and D was performed and only bloody drainage was expressed. Bandage was applied. This was likely just a hematoma. We will continue to monitor this area. 4. Right lower extremity edema. The patient has bilateral lower extremity edema with right greater than left. We will order an ultrasound of the right lower extremity to assess for deep venous thrombosis. Her Lasix 40 will be continued. 5. Dementia. Supportive care. Continue melatonin. Continue risperidone. 6. DVT prophylaxis: According to the DVT Risk Assessment, the patient scores 3 , placing her at high risk. She will be started on Lovenox. 7. Code status: DNR. TIME SPENT: Approximately 50 minutes was spent on this admission, greater than half that time was spent [id number] discussing the case with the patient's , obtaining a history, performing a physical, and reviewing the plan of care. The case has been reviewed with my attending, Dr. Noel, who is in agreement with the plan of care. SHAMA FUNEZ [id number]/[facility] #: [id number] PRASHANT
[2019-04-30] MEDS: Brimonid/Timolol 0.2/0.5%(NF) 10 ML OPHTH.SOLN LEFT EYE SCH (20:31)
[2019-04-30] MEDS: risperiDONE* ODT TAB 0.25 MG TAB PO SCH (20:31)
[2019-04-30] MEDS: Enoxaparin(*) 40 MG/0.4 ML SYR SUBCUT SCH (20:31)
[2019-05-01 06:26] LABS: Hematocrit 36 % (35-47); Hemoglobin 12.6 g/dL (12.0-16.0); Mean Corpuscular HGB Conc 35 g/dL (31-36); Mean Corpuscular Hemoglobin 31 pg (27-31); Mean Corpuscular Volume 90 fL (80-97); Mean Platelet Volume 7.4 fL (7.4-10.4); Platelet Count 350 10^3/uL (150-450); Red Blood Count 4.04 10^6 /uL (3.70-4.87); Red Cell Distribution Width 13 % (10-15); White Blood Count 13.7 10^3/uL (3.5-10.8)
[2019-05-01 07:36] LABS: ABS Basophils 0.1 10^3/ul (0-0.2); ABS Lymphocytes 2.1 10^3/ul (1.0-4.8); ABS Monocytes 1.6 10^3/ul (0-0.8); ABS Neutrophils 9.8 10^3/ul (1.5-7.7); Eosinophil % 0.1 %; Lymphocyte % 15.7 %
[2019-05-01] MEDS: Brimonid/Timolol 0.2/0.5%(NF) 10 ML OPHTH.SOLN LEFT EYE SCH ×2 (09:45→21:29)
[2019-05-01] MEDS: Calcium/Vitamin D TAB 250/125* TAB PO SCH (09:45)
[2019-05-01] MEDS: Furosemide TAB* 40 MG PO SCH (09:45)
[2019-05-01] MEDS: Aspirin EC TAB* 81 MG TAB.EC PO SCH (09:45)
[2019-05-01] MEDS: cefTRIAXone(*) 1 GM in NS 0.9% 50 ML* 50 ML IVPB SCH (14:23)
[2019-05-01] MEDS: Enoxaparin(*) 40 MG/0.4 ML SYR SUBCUT SCH (17:39)
--- NOTE | 2019-05-01 18:47 | PN ---
Subjective Date of Service: 05/01/19 Interval History: Patient answers question appropriately most of discussion. She tells me her breathing is comfortable. Denies fever/chills, chest pain. Does not complain of painful urination, but tells me she has abdominal pain. Objective Active Medications: Acetaminophen (Tylenol Tab*) 650 mg PO Q6H PRN PRN Reason: PAIN - MODERATE Aspirin (Aspirin Ec Tab*) 81 mg PO DAILY [facility] Last Admin: 05/01/19 09:45 Dose: 81 mg Brimonidine/Timolol (Combigan 0.2/0.5% (Nf)) 1 drop LEFT EYE BID [facility] Last Admin: 05/01/19 09:45 Dose: Not Given Calcium/Vitamin D (Oscal D Tab 250/125*) 1 tab PO DAILY [facility] Last Admin: 05/01/19 09:45 Dose: 1 tab Enoxaparin Sodium (Lovenox(*)) 40 mg SUBCUT Q24H [facility] Last Admin: 05/01/19 17:39 Dose: 40 mg Furosemide (Lasix Tab*) 40 mg PO DAILY [facility] Last Admin: 05/01/19 09:45 Dose: 40 mg Ceftriaxone Sodium 1 gm/ (Sodium Chloride) 50 mls @ 200 mls/hr IVPB Q24H [facility] Last Admin: 05/01/19 14:23 Dose: 200 mls/hr Risperidone (Risperidone* Odt) 0.25 mg PO BEDTIME [facility] Last Admin: 04/30/19 20:31 Dose: 0.25 mg Vital Signs - 8 hr 05/01/19 05/01/19 05/01/19 11:25 12:26 15:25 Temperature 98.3 F 98.8 F 98.7 F Pulse Rate 85 92 95 Respiratory 14 16 Rate Blood Pressure 135/58 132/82 144/70 (mmHg) O2 Sat by Pulse 90 98 99 Oximetry Oxygen Devices in Use Now: None Appearance: Thin, elderly white female, laying upright in bed, appearing in NAD Eyes: No Scleral Icterus, - - PERRL Ears/Nose/Mouth/Throat: Mucous Membranes Moist Neck: NL Appearance and Movements; NL JVP Respiratory: Symmetrical Chest Expansion and Respiratory Effort, Clear to Auscultation Cardiovascular: NL Sounds; No Murmurs; No JVD, RRR Abdominal: - - abd soft, nondistended; minimally tender to palpation in suprapubic region Extremities: No Clubbing, Cyanosis, - - trace pedal edema bilaterally Skin: No Rash or Ulcers Neurological: Alert and Oriented x 3, NL Muscle Strength and Tone Result Diagrams: 05/01/19 05:18 04/30/19 08:45 Microbiology and Other Data: Microbiology 04/30/19 11:56 Urine Culture - Preliminary Urine Staphylococcus Simulans 04/30/19 15:14 Aerobic Blood Culture - Preliminary Blood Venous No Growth Day 1 04/30/19 15:14 Aerobic Blood Culture - Preliminary Blood Venous No Growth Day 1 Anaerobic Blood Culture - Preliminary No Growth Day 1 04/30/19 11:56 Nasal Screen MRSA (PCR) - Final Nasal Mrsa Not Detected Assess/Plan/Problems-Billing Assessment: 74 yo white female with PMHx dementia and glaucoma presents after a fall. - Patient Problems (1) UTI (urinary tract infection) Current Visit: Yes Status: Acute Comment: -urine culture with staph simulans -continue ceftriaxone -awaiting S&S -patient with abdominal pain, likely 2/2 UTI -afebrile, leukocytosis downtrending (2) Fall Current Visit: Yes Status: Acute Comment: -unclear etiology as it was unwitnessed and patient is poor historian -PT recommends CRISSY (3) Dementia Current Visit: No Status: Acute Code(s): F03.90 - UNSPECIFIED DEMENTIA WITHOUT BEHAVIORAL DISTURBANCE SNOMED Code(s): 11854581 Comment: -supportive care (4) DNR (do not resuscitate) Current Visit: No Status: Acute (5) DVT prophylaxis Current Visit: No Status: Acute Code(s): Z29.9 - ENCOUNTER FOR PROPHYLACTIC MEASURES, UNSPECIFIED SNOMED Code(s): 659646313 Comment: -lovenox
[2019-05-01] MEDS: risperiDONE* ODT TAB 0.25 MG TAB PO SCH (21:30)
[2019-05-02 09:11] LABS: ABS Basophils 0.1 10^3/ul (0-0.2); ABS Eosinophils 0.1 10^3/ul (0-0.6); ABS Lymphocytes 1.6 10^3/ul (1.0-4.8); ABS Neutrophils 6.9 10^3/ul (1.5-7.7); Eosinophil % 1.3 %; Hematocrit 36 % (35-47); Hemoglobin 12.2 g/dL (12.0-16.0); Lymphocyte % 16.1 %; Mean Corpuscular HGB Conc 34 g/dL (31-36); Mean Corpuscular Hemoglobin 31 pg (27-31); Mean Corpuscular Volume 91 fL (80-97); Mean Platelet Volume 7.2 fL (7.4-10.4); Platelet Count 309 10^3/uL (150-450); Red Blood Count 3.94 10^6 /uL (3.70-4.87); Red Cell Distribution Width 13 % (10-15); White Blood Count 9.6 10^3/uL (3.5-10.8)
[2019-05-02] MEDS: Calcium/Vitamin D TAB 250/125* TAB PO SCH (09:41)
[2019-05-02] MEDS: Aspirin EC TAB* 81 MG TAB.EC PO SCH (09:41)
[2019-05-02] MEDS: Brimonid/Timolol 0.2/0.5%(NF) 10 ML OPHTH.SOLN LEFT EYE SCH ×2 (09:41→22:05)
[2019-05-02] MEDS: Furosemide TAB* 40 MG PO SCH (09:41)
[2019-05-02 09:57] LABS: BUN/Creatinine Ratio 21.2 (8-20); Calcium 8.8 mg/dL (8.6-10.3); EGFR African American 105.6 (>60); EGFR Non-African American 87.3 (>60); Potassium 4.1 mmol/L (3.5-5.0)
[2019-05-02] MEDS ORDERED: Polyethylene Glycol 3350* 17 GM PACKET PO PRN (11:24)
--- NOTE | 2019-05-02 11:24 | PN ---
Subjective Date of Service: 05/02/19 Interval History: Patient answers questions appropriately only at times. Denies abdominal pain today. Denies chest pain, difficulty breathing. Does not answer if she feels fever/chills, does not answer orientation questions. Mabry was removed to trial out in evening. No urine output since then. Bladder scan demonstrates 500cc urine. Later, patient spontaneously urinated and bladder scan was <300 cc. Objective Active Medications: Acetaminophen (Tylenol Tab*) 650 mg PO Q6H PRN PRN Reason: PAIN - MODERATE Aspirin (Aspirin Ec Tab*) 81 mg PO DAILY [facility] Last Admin: 05/02/19 09:41 Dose: 81 mg Brimonidine/Timolol (Combigan 0.2/0.5% (Nf)) 1 drop LEFT EYE BID [facility] Last Admin: 05/02/19 09:41 Dose: Not Given Calcium/Vitamin D (Oscal D Tab 250/125*) 1 tab PO DAILY [facility] Last Admin: 05/02/19 09:41 Dose: 1 tab Enoxaparin Sodium (Lovenox(*)) 40 mg SUBCUT Q24H [facility] Last Admin: 05/01/19 17:39 Dose: 40 mg Furosemide (Lasix Tab*) 40 mg PO DAILY [facility] Last Admin: 05/02/19 09:41 Dose: 40 mg Ceftriaxone Sodium 1 gm/ (Sodium Chloride) 50 mls @ 200 mls/hr IVPB Q24H [facility] Last Admin: 05/01/19 14:23 Dose: 200 mls/hr Risperidone (Risperidone* Odt) 0.25 mg PO BEDTIME [facility] Last Admin: 05/01/19 21:30 Dose: 0.25 mg Oxygen Devices in Use Now: None Appearance: Thin, elderly white female, laying in bed, appearing in NAD Eyes: No Scleral Icterus, - - PERRL Ears/Nose/Mouth/Throat: Mucous Membranes Moist Neck: NL Appearance and Movements; NL JVP Respiratory: Symmetrical Chest Expansion and Respiratory Effort, Clear to Auscultation Cardiovascular: NL Sounds; No Murmurs; No JVD, RRR Abdominal: - - abd soft, nontender, nondistended; no cva tenderness Extremities: No Edema, No Clubbing, Cyanosis Skin: No Rash or Ulcers Neurological: NL Muscle Strength and Tone, - - alert and oriented to self only Result Diagrams: 05/02/19 08:47 05/02/19 08:47 Microbiology and Other Data: Microbiology 04/30/19 11:56 Urine Culture - Preliminary Urine Staphylococcus Simulans 04/30/19 15:14 Aerobic Blood Culture - Preliminary Blood Venous No Growth Day 1 04/30/19 15:14 Aerobic Blood Culture - Preliminary Blood Venous No Growth Day 1 Anaerobic Blood Culture - Preliminary No Growth Day 1 04/30/19 11:56 Nasal Screen MRSA (PCR) - Final Nasal Mrsa Not Detected Assess/Plan/Problems-Billing Assessment: 74 yo white female with PMHx dementia and glaucoma presents after a fall. - Patient Problems (1) UTI (urinary tract infection) Current Visit: Yes Status: Acute Comment: -urine culture with staph simulans, marin sensitive -continue ceftriaxone -afebrile, leukocytosis resolved, abd pain resolved today per patient though she is a poor historian (2) Urine retention Current Visit: Yes Status: Acute Code(s): R33.9 - RETENTION OF URINE, UNSPECIFIED SNOMED Code(s): 587597826 Comment: -mabry was placed in ED after urine collection, trialed out overnight with no urine output the entire shift. Bladder scan with 500 cc urine -I do not believe this is an CATA of any of her home meds -US renal/bladder with mild left hydronephrosis. There is no associated kidney injury. -could be 2/2 to UTI -appears to be improving as day goes on, but will re-insert mabry due to hydronephrosis (3) Fall Current Visit: Yes Status: Acute Comment: -unclear etiology as it was unwitnessed and patient is poor historian -PT recommends [facility] (4) Dementia Current Visit: No Status: Acute Code(s): F03.90 - UNSPECIFIED DEMENTIA WITHOUT BEHAVIORAL DISTURBANCE SNOMED Code(s): 51017979 Comment: -supportive care (5) DNR (do not resuscitate) Current Visit: No Status: Acute (6) DVT prophylaxis Current Visit: No Status: Acute Code(s): Z29.9 - ENCOUNTER FOR PROPHYLACTIC MEASURES, UNSPECIFIED SNOMED Code(s): 311920785 Comment: -lovenox Status and Disposition: CRISSY placement pending
[2019-05-02] MEDS: cefTRIAXone(*) 1 GM in NS 0.9% 50 ML* 50 ML IVPB SCH (13:11)
[2019-05-02] MEDS: Enoxaparin(*) 40 MG/0.4 ML SYR SUBCUT SCH (15:22)
[2019-05-02] MEDS: risperiDONE* ODT TAB 0.25 MG TAB PO SCH (22:05)
[2019-05-03] MEDS: Furosemide TAB* 40 MG PO SCH (08:20)
[2019-05-03] MEDS: Brimonid/Timolol 0.2/0.5%(NF) 10 ML OPHTH.SOLN LEFT EYE SCH (08:20)
[2019-05-03] MEDS: Calcium/Vitamin D TAB 250/125* TAB PO SCH (08:20)
[2019-05-03] MEDS: Aspirin EC TAB* 81 MG TAB.EC PO SCH (08:20)
--- NOTE | 2019-05-03 15:09 | PN ---
Subjective Date of Service: 05/03/19 Interval History: No acute events overnight. Had 91 cc on post void bladder scan overnight. Patient is a poor historian due to dementia, but overall answers questions appropriately today. She says she feels well. She has no complaints. She denies fever/chills, chest pain, abdominal pain, difficulty breathing. Objective Active Medications: Acetaminophen (Tylenol Tab*) 650 mg PO Q6H PRN PRN Reason: PAIN - MODERATE Aspirin (Aspirin Ec Tab*) 81 mg PO DAILY [facility] Last Admin: 05/03/19 08:20 Dose: 81 mg Brimonidine/Timolol (Combigan 0.2/0.5% (Nf)) 1 drop LEFT EYE BID [facility] Last Admin: 05/03/19 08:20 Dose: Not Given Calcium/Vitamin D (Oscal D Tab 250/125*) 1 tab PO DAILY [facility] Last Admin: 05/03/19 08:20 Dose: 1 tab Enoxaparin Sodium (Lovenox(*)) 40 mg SUBCUT Q24H [facility] Last Admin: 05/02/19 15:22 Dose: 40 mg Furosemide (Lasix Tab*) 40 mg PO DAILY [facility] Last Admin: 05/03/19 08:20 Dose: 40 mg Ceftriaxone Sodium 1 gm/ (Sodium Chloride) 50 mls @ 200 mls/hr IVPB Q24H [facility] Last Admin: 05/02/19 13:11 Dose: 200 mls/hr Polyethylene Glycol/Electrolytes (Miralax*) 17 gm PO DAILY PRN PRN Reason: CONSTIPATION Last Admin: 05/02/19 15:23 Dose: 17 gm Risperidone (Risperidone* Odt) 0.25 mg PO BEDTIME [facility] Last Admin: 05/02/19 22:05 Dose: 0.25 mg Oxygen Devices in Use Now: None Appearance: thin, elderly white female, laying supine in hospital bed, appearing comfortable and in NAD Eyes: No Scleral Icterus, - - PERRL Ears/Nose/Mouth/Throat: Mucous Membranes Moist Neck: NL Appearance and Movements; NL JVP Respiratory: Symmetrical Chest Expansion and Respiratory Effort, - - difficult to auscultate due to poor patient effort but no adventitious sounds appreciated Cardiovascular: NL Sounds; No Murmurs; No JVD, RRR Abdominal: - - abd soft, nontender, nondistended; no CVA tenderness Extremities: No Edema, No Clubbing, Cyanosis Skin: No Rash or Ulcers Neurological: NL Muscle Strength and Tone, - - alert and oriented to self Result Diagrams: 05/02/19 08:47 05/02/19 08:47 Microbiology and Other Data: Microbiology 04/30/19 11:56 Urine Culture - Preliminary Urine Staphylococcus Simulans 04/30/19 15:14 Aerobic Blood Culture - Preliminary Blood Venous No Growth Day 1 04/30/19 15:14 Aerobic Blood Culture - Preliminary Blood Venous No Growth Day 1 Anaerobic Blood Culture - Preliminary No Growth Day 1 04/30/19 11:56 Nasal Screen MRSA (PCR) - Final Nasal Mrsa Not Detected Assess/Plan/Problems-Billing Assessment: 74 yo white female with PMHx dementia and glaucoma presents after a fall. - Patient Problems (1) UTI (urinary tract infection) Current Visit: Yes Status: Acute Comment: -urine culture with staph simulans, marin sensitive -continue ceftriaxone -afebrile, leukocytosis resolved, abd pain resolved (2) Urine retention Current Visit: Yes Status: Acute Code(s): R33.9 - RETENTION OF URINE, UNSPECIFIED SNOMED Code(s): 139320247 Comment: -mabry was placed in ED after urine collection, trialed out overnight with no urine output the entire shift. Bladder scan with 500 cc urine -I do not believe this is an CATA of any of her home meds -US renal/bladder with mild left hydronephrosis. There is no associated kidney injury. -could be 2/2 to UTI -appears to be improving, no mabry needed, no further PVRs needed (3) Fall Current Visit: Yes Status: Acute Comment: -unclear etiology as it was unwitnessed and patient is poor historian -PT recommends [facility] (4) Dementia Current Visit: No Status: Acute Code(s): F03.90 - UNSPECIFIED DEMENTIA WITHOUT BEHAVIORAL DISTURBANCE SNOMED Code(s): 52292558 Comment: -supportive care (5) DNR (do not resuscitate) Current Visit: No Status: Acute (6) DVT prophylaxis Current Visit: No Status: Acute Code(s): Z29.9 - ENCOUNTER FOR PROPHYLACTIC MEASURES, UNSPECIFIED SNOMED Code(s): 056791040 Comment: -lovenox Status and Disposition: CRISSY placement pending
[2019-05-03] MEDS: cefTRIAXone(*) 1 GM in NS 0.9% 50 ML* 50 ML IVPB SCH (16:06)
[2019-05-03] MEDS: Enoxaparin(*) 40 MG/0.4 ML SYR SUBCUT SCH (16:13)
[2019-05-03] MEDS: risperiDONE* ODT TAB 0.25 MG TAB PO SCH (21:44)
[2019-05-04] MEDS: Brimonid/Timolol 0.2/0.5%(NF) 10 ML OPHTH.SOLN LEFT EYE SCH ×3 (01:38→22:41)
[2019-05-04] MEDS: Calcium/Vitamin D TAB 250/125* TAB PO SCH (08:26)
[2019-05-04] MEDS: Furosemide TAB* 40 MG PO SCH (08:26)
[2019-05-04] MEDS: Aspirin EC TAB* 81 MG TAB.EC PO SCH (08:26)
--- NOTE | 2019-05-04 08:36 | PN ---
Subjective Date of Service: 05/04/19 Interval History: No overnight events. Afebrile entire admission. Today is last day (day 5) of antibiotics. Pt has no complaints, although has significant cognitive impairment. Objective Active Medications: Acetaminophen (Tylenol Tab*) 650 mg PO Q6H PRN PRN Reason: PAIN - MODERATE Aspirin (Aspirin Ec Tab*) 81 mg PO DAILY [facility] Last Admin: 05/04/19 08:26 Dose: 81 mg Brimonidine/Timolol (Combigan 0.2/0.5% (Nf)) 1 drop LEFT EYE BID [facility] Last Admin: 05/04/19 01:38 Dose: Not Given Calcium/Vitamin D (Oscal D Tab 250/125*) 1 tab PO DAILY [facility] Last Admin: 05/04/19 08:26 Dose: 1 tab Enoxaparin Sodium (Lovenox(*)) 40 mg SUBCUT Q24H [facility] Last Admin: 05/03/19 16:13 Dose: 40 mg Furosemide (Lasix Tab*) 40 mg PO DAILY [facility] Last Admin: 05/04/19 08:26 Dose: 40 mg Ceftriaxone Sodium 1 gm/ (Sodium Chloride) 50 mls @ 200 mls/hr IVPB Q24H [facility] Last Admin: 05/03/19 16:06 Dose: 200 mls/hr Polyethylene Glycol/Electrolytes (Miralax*) 17 gm PO DAILY PRN PRN Reason: CONSTIPATION Last Admin: 05/02/19 15:23 Dose: 17 gm Risperidone (Risperidone* Odt) 0.25 mg PO BEDTIME [facility] Last Admin: 05/03/19 21:44 Dose: 0.25 mg Vital Signs - 8 hr 05/04/19 02:27 Temperature 97.9 F Pulse Rate 81 Respiratory 16 Rate Blood Pressure 132/55 (mmHg) O2 Sat by Pulse 97 Oximetry Oxygen Devices in Use Now: None Appearance: frail elderly woman in NAD, appears older than stated age Ears/Nose/Mouth/Throat: Clear Oropharnyx, Mucous Membranes Moist Neck: NL Appearance and Movements; NL JVP, Trachea Midline Respiratory: Symmetrical Chest Expansion and Respiratory Effort, Clear to Auscultation Cardiovascular: NL Sounds; No Murmurs; No JVD, RRR Abdominal: NL Sounds; No Tenderness; No Distention, No Hepatosplenomegaly Extremities: No Edema Neurological: - - knows self, otherwise AOx0 Result Diagrams: 05/02/19 08:47 05/02/19 08:47 Microbiology and Other Data: Microbiology 04/30/19 11:56 Urine Culture - Preliminary Urine Staphylococcus Simulans 04/30/19 15:14 Aerobic Blood Culture - Preliminary Blood Venous No Growth Day 1 04/30/19 15:14 Aerobic Blood Culture - Preliminary Blood Venous No Growth Day 1 Anaerobic Blood Culture - Preliminary No Growth Day 1 04/30/19 11:56 Nasal Screen MRSA (PCR) - Final Nasal Mrsa Not Detected Assess/Plan/Problems-Billing Assessment: 74W with dementia and glaucoma presents after a fall, found with UTI. Pending CRISSY placement. - Patient Problems (1) UTI (urinary tract infection) Comment: -urine culture with staph simulans, marin sensitive -continue ceftriaxone (04/30 - 05/04) -afebrile, leukocytosis resolved, abd pain resolved (2) Fall Comment: -unclear etiology as it was unwitnessed and patient is poor historian -PT recommends CR[facility]SY (3) Dementia Comment: -supportive care (4) DVT prophylaxis Comment: -lovenox (5) DNR (do not resuscitate) Current Visit: No Status: Acute Status and Disposition: CRISSY placement pending
[2019-05-04] MEDS ORDERED: Senna TAB 8.6 mg* TAB PO ONE (12:09)
[2019-05-04] MEDS ORDERED: Magnesium Hydroxide LIQ* 30 ML UDC PO ONE (12:10)
[2019-05-04] MEDS ORDERED: Senna TAB 8.6 mg* TAB PO PRN (12:11)
[2019-05-04] MEDS: cefTRIAXone(*) 1 GM in NS 0.9% 50 ML* 50 ML IVPB SCH (13:07)
[2019-05-04] MEDS: Enoxaparin(*) 40 MG/0.4 ML SYR SUBCUT SCH (17:03)
[2019-05-04] MEDS: risperiDONE* ODT TAB 0.25 MG TAB PO SCH (22:41)
--- NOTE | 2019-05-05 08:32 | PN ---
Subjective Date of Service: 05/05/19 Interval History: No overnight events. Patient denies pain, dysuria, palpitations, SOB. Seems enthusiastic when told she is finished with antibiotics and may be discharged today, pending [facility] acceptance. Objective Active Medications: Acetaminophen (Tylenol Tab*) 650 mg PO Q6H PRN PRN Reason: PAIN - MODERATE Brimonidine/Timolol (Combigan 0.2/0.5% (Nf)) 1 drop LEFT [facility] Last Admin: 05/04/19 22:41 Dose: Not Given Calcium/Vitamin D (Oscal D Tab 250/125*) 1 tab PO DAILY [facility] Last Admin: 05/04/19 08:26 Dose: 1 tab Enoxaparin Sodium (Lovenox(*)) 40 mg SUBCUT Q24H [facility] Last Admin: 05/04/19 17:03 Dose: 40 mg Furosemide (Lasix Tab*) 20 mg PO DAILY [facility] Polyethylene Glycol/Electrolytes (Miralax*) 17 gm PO DAILY PRN PRN Reason: CONSTIPATION Last Admin: 05/02/19 15:23 Dose: 17 gm Risperidone (Risperidone* Odt) 0.25 mg PO BEDTIME [facility] Last Admin: 05/04/19 22:41 Dose: 0.25 mg Senna (Senokot 8.6 Mg Tab*) 1 tab PO BEDTIME PRN PRN Reason: if no BM during day Vital Signs - 8 hr 05/05/19 02:42 Temperature 98.6 F Pulse Rate 76 Respiratory 19 Rate Blood Pressure 131/53 (mmHg) O2 Sat by Pulse 97 Oximetry Oxygen Devices in Use Now: None Appearance: well appearing, frail elderly woman in NAD Ears/Nose/Mouth/Throat: Clear Oropharnyx, Mucous Membranes Moist Respiratory: Symmetrical Chest Expansion and Respiratory Effort, Clear to Auscultation Cardiovascular: NL Sounds; No Murmurs; No JVD, RRR Abdominal: NL Sounds; No Tenderness; No Distention, No Hepatosplenomegaly Extremities: - - trace edema over ankles b/l Neurological: - - alert only to self Result Diagrams: 05/02/19 08:47 05/02/19 08:47 Microbiology and Other Data: Microbiology 04/30/19 11:56 Urine Culture - Preliminary Urine Staphylococcus Simulans 04/30/19 15:14 Aerobic Blood Culture - Preliminary Blood Venous No Growth Day 1 04/30/19 15:14 Aerobic Blood Culture - Preliminary Blood Venous No Growth Day 1 Anaerobic Blood Culture - Preliminary No Growth Day 1 04/30/19 11:56 Nasal Screen MRSA (PCR) - Final Nasal Mrsa Not Detected Assess/Plan/Problems-Billing Assessment: 74W with dementia and glaucoma presents after a fall, found with UTI. Pending [facility] placement. - Patient Problems (1) UTI (urinary tract infection) Comment: -urine culture with staph simulans, marin sensitive -s/p ceftriaxone (04/30 - 05/04) -afebrile, leukocytosis resolved, abd pain resolved (2) Fall Comment: -unclear etiology as it was unwitnessed and patient is poor historian -PT recommends [facility] -will discontinue aspirin for primary prevention given age and h/o fall (3) Dementia Comment: -supportive care (4) DVT prophylaxis Comment: -lovenox (5) DNR (do not resuscitate) Current Visit: No Status: Acute Status and Disposition: [facility] placement pending
[2019-05-05] MEDS: Aspirin EC TAB* 81 MG TAB.EC PO SCH (08:37)
[2019-05-05] MEDS: Calcium/Vitamin D TAB 250/125* TAB PO SCH (08:37)
[2019-05-05] MEDS: Furosemide TAB* 40 MG PO SCH (08:37)
[2019-05-05] MEDS: Brimonid/Timolol 0.2/0.5%(NF) 10 ML OPHTH.SOLN LEFT EYE SCH (08:41)
[2019-05-05] MEDS ORDERED: Furosemide TAB* 20 MG PO SCH (09:00)
[2019-05-05] MEDS ORDERED: Acetaminophen TAB* 325 MG PO PRN (12:12)
--- NOTE | 2019-05-05 12:51 | DS ---
CC: Dr. Yady Lloyd DATE OF ADMISSION: 04/30/2019. DATE OF DISCHARGE: 05/05/2019. PRIMARY CARE PHYSICIAN: Dr. Yady Lloyd. PRIMARY DIAGNOSES: 1. Fall, possibly mechanical. 2. Urinary tract infection. 3. Severe dementia. SECONDARY DIAGNOSES: Glaucoma. DISCHARGE MEDICATIONS: 1. Combigan eye drops one drop to left eye b.i.d. 2. Risperidone 0.25 mg at bedtime. 3. Acetaminophen 975 mg p.o. every 8 hours as needed for pain. 4. Furosemide 20 mg daily. 5. Vitamin D and calcium one tablet daily. 6. Multivitamin one tablet daily. 7. MiraLax 30 ml orally every 12 hours as needed for constipation. HISTORY OF PRESENT ILLNESS: Ms. Gomez is a 74-year-old woman with advanced dementia and glaucoma who presented to the ER after being found down at [facility]. She had sustained an unwitnessed fall. Information obtained comes from reports from [facility] and the patient's , as the patient is largely nonverbal at baseline due to advanced dementia and she is unable to relay a reliable history. The family reports that she is typically able to walk without assistance, but does so very slowly. On the day of presentation, she was found down after having an unwitnessed fall. Staff at [facility] state that they had a difficult time helping the patient off the floor and suspected that she was in significant pain, although she did not complain of this. They called to send the patient to the ER for evaluation. HOSPITAL COURSE: In the ER, the patient received a full work-up, including labs and imaging. She was noted to have leukocytosis, and UA notable for 3+ leuk esterase, although negative nitrates and negative bacteria. EKG showed normal sinus rhythm with rate of 99. CT of the brain and C-spine were unremarkable. Chest x- ray, bilateral knee, right femur, right hip, and pelvis x-rays were unremarkable. The patient was given a liter bolus of normal saline and started on Ceftriaxone for concern for UTI. While in the emergency room, she was noted to have an erythematous area of the medial aspect of her left knee. An ultrasound was performed and consistent with a fluid filled subdermal focus, so Dr. Stafford in the emergency room lanced the area and only a small amount of blood was expressed without purulence. She was admitted to the Hospitalist Service for continued treatment of her UTI and also for physical therapy evaluation for likely mechanical fall. Her urine cultures resulted with staphylococcus simulans, 75 to 100,000 CFU's which was pansensitive. The patient completed a total of five days of Ceftriaxone IV. Her aspirin was stopped given her fall risk and unclear benefit of primary prevention in a patients 75 and older with severe advanced dementia. Early on in the patient's admission, she did report mild abdominal pain when directly asked, but by the end of admission the patient had denied all symptoms. On the day of discharge, a ten point review of systems was performed and negative. The patient was seen and evaluated by the physical therapy team who recommended short-term rehab placement after discharge. When the patient was accepted to a facility and medically cleared, she was discharged to [facility]. PERTINENT DIAGNOSTIC STUDIES: 1. WBC initially with leukocytosis, then resolved, no anemia. 2. BMP and LFT's unremarkable. 3. UA with 3+ LE, 3+ WBC, 2+ RBC, and squamous epithelial cell present. 4. Microbiology with staphylococcus simulans marin sensitive, 75 to 100,000 CFU' s. 5. Brain CT without evidence for acute intracranial abnormality. 6. Cervical spine CT without evidence for fracture or subluxation with mild to moderate cervical spondylosis. 7. Chest x-ray without active cardiopulmonary disease. 8. Femur x-ray: Right without evidence for fracture. 9. Right hip x-ray without evidence for fracture. 10. 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 No evidence for fracture bilaterally. 11. Abdomen and bladder ultrasound when patient was briefly retaining urine showed mild left hydronephrosis. DISCHARGE PLAN: The patient will be discharged to short-term rehab. She has already completed a course of antibiotics for possible UTI, although she had less than 100,000 CFU 's on micro. The only significant changes to her home medications was discontinuation of aspirin, given a history of falls and unclear benefit in patient in this demographic. She should continue to follow-up with her primary care physician for management of her chronic medical problems. She should eat a healthy diet low in processed foods and resume activity as tolerated per rehab. DISPOSITION: [facility]. CONDITION ON DISCHARGE: Improved. TIME SPENT: Approximately 60 minutes were spent on the discharge of this patient, more than half of which was spent with care coordination at bedside for interview and exam. [id number]/CPS #: [id number] PRASHANT
[2019-05-05] MEDS: Enoxaparin(*) 40 MG/0.4 ML SYR SUBCUT SCH (16:01)
[2019-05-05 17:08] VITALS: BP 120/49
== END 2019-05-05 17:00 | DRG 690 ==
LOC: ED 08:22 → MED 15:14
PROVIDERS: ADMIT Physician Assistant Medical; ATTEND Internal Medicine
PROC: 0S9D3ZX Drainage of Left Knee Joint, Percutaneous Approach, Diagnostic (ICD-10-PCS; principal; 2019-04-30)
DX: N39.0 Urinary tract infection, site not specified (principal); F03.90 Unspecified dementia, unspecified severity, without behavioral disturbance, psychotic disturbance, mood disturbance, and anxiety; H40.9 Unspecified glaucoma; W19.XXXA Unspecified fall, initial encounter; B95.7 Other staphylococcus as the cause of diseases classified elsewhere; M17.12 Unilateral primary osteoarthritis, left knee; M85.862 Other specified disorders of bone density and structure, left lower leg; M47.812 Spondylosis without myelopathy or radiculopathy, cervical region; N13.30 Unspecified hydronephrosis; Z66 Do not resuscitate; R33.9 Retention of urine, unspecified; Z96.651 Presence of right artificial knee joint; Z88.1 Allergy status to other antibiotic agents; Z88.2 Allergy status to sulfonamides; Y92.099 Unspecified place in other non-institutional residence as the place of occurrence of the external cause; Z87.891 Personal history of nicotine dependence
CPT/HCPCS: 36415; 70450; 71045; 72125; 76770; 80048; 80053; 81003; 81015; 83605; 84484; 85025; 85652; 87040; 87077; 87086; 87186; 87641; 93005; 96374; 99284; A9270-GY; G8978-GP-CL; G8979-GP-CJ; J0696; J1650